=== PATIENT | female | born 1965 | race Caucasian/White ===

== ENCOUNTER 2022-12-20 07:30 | Outpatient (OUT) | payer OTHER, SELFPAY | END 2022-12-20 07:31 | disposition home or self-care (01) | DX: E11.9 Type 2 diabetes mellitus without complications (principal) | CPT/HCPCS: G0108 ==

== ENCOUNTER 2023-04-26 14:19 | Outpatient (OUT) | payer OTHER, SELFPAY ==
--- NOTE | 2023-04-26 14:22 | MM_ITS ---
Patient Name: JOSE MASON MR#: [id number] : 1965 Exam Date: 04/26/2023 Ordering Doctor: DR. Indiana Pacheco M.D. RADIOLOGY REPORT PROCEDURE: MM TOMOSYNTHESIS SCREENING BI COMPARISON: MG MAMM SCREEN 3D FABIAN CAD, 11/14/2020. MG MAMM SCREEN 3D FABIAN CAD, 03/17/2022. INDICATIONS: Screening Calculator Name NCI Breast Cancer Risk Assessment Tool 5 Year Breast Cancer Risk 1.50% Lifetime Breast Cancer Risk 8.50% Personal Breast Cancer No Personal Ovarian Cancer No Treatments hysterectomy, bilateral oopherectomy Family Cancers None LOCATION: [facility] BREAST COMPOSITION: Almost entirely fatty. FINDINGS: DIAGNOSTIC CATEGORY 2--BENIGN FINDING. NO CHANGE FROM COMPARISON. Scattered benign-appearing calcifications are present. RIGHT BREAST: No significant suspicious finding. LEFT BREAST: No significant suspicious finding. RECOMMENDATIONS: ROUTINE MAMMOGRAM AND CLINICAL EVALUATION IN 12 MONTHS. PLEASE NOTE: A NORMAL MAMMOGRAM DOES NOT EXCLUDE THE POSSIBILITY OF BREAST CANCER. A CLINICALLY SUSPICIOUS PALPABLE LUMP SHOULD BE BIOPSIED. Dictated by: Dani Zhang MD on 04/26/2023 at 15:37 Approved by: Dani Zhang MD on 04/26/2023 at 15:40
--- NOTE | 2023-04-26 14:39 | XR_ITS ---
[address] [address] Patient Name: JOSE MASON MRN: [id number] date: 1965 Sex: F Assigned Patient Location: [facility] Current Patient Location: [facility] Accession/Order Number: [id number] Exam Date: 04/26/2023 14:45 Report Date: 04/26/2023 15:43 At the request of: SHANA MIDDLETON Procedure: XR DEXA axial skeleton EXAMINATION: XR DEXA axial skeleton, 04/26/2023 2:45 PM EST HISTORY: Screening For Osteoporosis Z13.820 COMPARISON: None. TECHNIQUE: Dual-energy X-ray absorptiometry (DEXA) bone density study performed for the axial skeleton. HISTORY: Screening For Osteoporosis Z13.820 FINDINGS: Bone mineral density AP spine L2-L4 measures 1.197 g/sq cm. T score 0.0. WHO classification: Normal Bone mineral density total femurs measures 1.235 g/sq cm. T score 1.8. WHO classification: Normal XR/XR DEXA axial skeleton IMPRESSION: Normal bone mineral density. Low fracture risk Electronically authenticated by: GERRI HUDDLESTON Date: 04/26/2023 15:43
== END 2023-04-26 14:20 | disposition home or self-care (01) ==
LOC: MAMMO 14:19
DX: Z12.31 Encounter for screening mammogram for malignant neoplasm of breast (principal); Z13.820 Encounter for screening for osteoporosis
CPT/HCPCS: 77063; 77067; 77080

== ENCOUNTER 2024-11-14 07:02 | Outpatient (OUT) | payer OTHER, SELFPAY ==
--- OUTSIDE RECORDS SUMMARY | 2024-11-05 09:30 | XMS_ITS | Encounter Summary ---
Author Organization [facility] Address [address] [place] [address] Care Team Providers Care Electrodynamicist Name Role Phone Odilia Montano MD Unavailable [phone] Reason for Visit * Reason Comments Follow-up Established patient presents today for 3-4 week fuv of left ankle pain. PCP: Charmaine 08/02/24, A1C: 5.7, BS: 101, SS: [id number] Encounter Details Date Type Department Care Team (Late st Contact Info) Description 11/05/2024 9:30 AM EDT Office Visit [facility] [address] [place] [id number] Mitch Singh, DPM [address] [place], [place] [phone] Tibialis posterior tendonitis, left (Primary Dx); Arthritis of left subtalar joint; Pain and swelling of left ankle; Difficulty walking Social History Tobacco Use Types Packs/Day Years Used Date Smoking Tobacco: Never Smokeless Tobacco: Never Alcohol Use Standard Drinks/Week Comments Not Currently 0 (1 standard drink = 0.6 oz pur e alcohol) Comments Unknown Sex and Gender Information Value Date Recorded Sex Assigned at Not on file Legal Sex Female 7:09 PM EDT Gender Identity Female 10/01/2024 8:42 PM EDT Sexual Orientation Not on file documented as of this encounter Last Filed Vital Signs Vital Sign Reading Time Taken Comments Blood Pressure - - Pulse - - Temperature - - Respiratory Rate - - Oxygen Saturation - - Inhaled Oxygen Concentration - - Weight 113 kg (250 lb) 11/05/2024 9:38 AM EDT Height 154.9 cm (5' 1 ) 11/05/2024 9:38 AM EDT Body Mass Index 47.24 11/05/2024 9:38 AM EDT documented in this encounter Patient Instructions * Patient Instructions* Mitch Singh DPM - 11/05/2024 9:30 AM EDT As noted documented in this encounter Progress Notes * Mitch Singh DPM - 11/05/2024 9:30 AM EDT Images from the original note were not included. Subjective Patient ID: Ana Oviedo is a 58 y.o. female who presents for Follow-up (Established patient presents today for 3-4 week fuv of left ankle pain. PCP: Charmaine WHITE 08/02/24, A1C: 5.7, BS: 101, SS: 7XW). HPI Follow-up assessment: Left ankle pain. Patient reports almost 100% relief/improvement . Completed prednisone therapy without adverse effects. Reports favorable support with Powerstep orthoses. Tolerance to ADLs an physical activity continues to improve. Residual symptoms appear to be locatedprimarily about the posterior joint line. Denies locking or catching sensation. Denies sensation ofweakness or instability. Medications Current Outpatient Medications: lisinopril 5 MG tablet, Take by mouth Daily, Disp: , Rfl: predniSONE (Deltasone) 10 MG tablet, 1 tablet twice daily x 7 days; followed by 1 tablet daily as directed until complete, Disp: 21 tablet, Rfl: 0 Allergies Dust mite extract, Molds & smuts, Penicillins, and Sulfa antibiotics Past Surgical History Past Surgical History: Procedure Laterality Date MR ANGIOGRAM ABDOMEN W AND WO IV CONTRAST 04/08/2021 MR ANGIOGRAM ABDOMEN W AND WO IV CONTRAST 04/08/2021 MR ANGIOGRAM CHEST W AND WO IV CONTRAST 04/08/2021 MR ANGIOGRAM CHEST W AND WO IV CONTRAST 04/08/2021 TONSILLECTOMY TOTAL ABDOMINAL HYSTERECTOMY TUBAL LIGATION Family History Family History Problem Relation Name Age of Onset Aneurysm Mother Meme Samano Stroke Mother Meme Samano Cancer Maternal Grandfather Marty veram Objective General assessment: Alert and oriented. Pleasant disposition. Independently ambulatory, wearing ortho feet footwear with Powerstep orthoses. Vascular: DP 2/4 bilateral. PT 1/4 bilateral. CFT brisk all digits. Gradient temperature: Warm-slightly cool bilateral. Symmetrical swelling of the lower extremities and ankles. Neurologic: Tactile and light touch sensation intact. Negative Tinel's along the tarsal canal. Dermatologic: Skin turgor is good. Unremarkable for eczema or dermatitis. Orthopedic: Range of motion: Demonstrates functional ankle range of motion bilateral; mild gastrocnemius equinus. Demonstrates functional subtalar and midtarsal joint range of motion on the right. Demonstrates limited subtalar joint passive range of motion on the left, with occasional joint click, without guarding or obvious joint crepitus. There remains mild posterior joint line tenderness; as well as the sinus tarsi. The medial and lateral collateral structures are non-tender. The anteriorjoint line is non-tender. Unremarkable for joint effusion. Lesion pattern: No forefoot or digital discrete keratotic lesions are noted. Stance assessment: Symmetrical, mildly pronated foot type. Radiology: RADIOGRAPHS: 3 views left ankle: Weight-bearing: AP, mortise, lateral: 10/02/2024: Unremarkable foracute osseous or joint pathology. Unremarkable for fracture or stress fracture changes. Fairly extensive degenerative arthritic changes of the posterior subtalar joint facet; with what appears to be a prominent evans's fracture fragment posteriorly. Minimal arthritic changes of the tibial-talar joint. Assessment/Plan Tibialis posterior tendonitis left. Post-traumatic arthrosis subtalar joint left. 3. Evans's fracture/os trigonum syndrome left ankle Plan: Review of clinical findings, differential diagnosis, etiology and contributing/aggravating factors, response to date, treatment strategy, rationale and objectives. Encourage compliance with supportive footwear and Powerstep orthoses. Recommend use of OTC compression sleeve or gauntlet brace as needed. Recommend Tylenol as needed. Discourage NSAID therapy with history of renal problems. Procedure: This note was created with the assistance of a speech recognition program. While intending to generate a timely document that accurately reflects the content of the visit, no guarantee can be provided that every grammatical or spelling mistake has been or will be identified or corrected. Thank you for your understanding. Mitch Singh DPM documented in this encounter Plan of Treatment Not on file documented as of this encounter Visit Diagnoses Diagnosis Tibialis posterior tendonitis, left- Primary Arthritis of left subtalar joint Pain and swelling of left ankle Difficulty walking Difficulty in walking documented in this encounter Care Teams Electrodynamicist Relationship Specialty Start Date End Date Odilia Montano MD [address] [place] [address] Primary Care Provider Family Medicine 10/02/24 documented as of this encounter
--- OUTSIDE RECORDS SUMMARY | 2024-11-14 07:07 | XMS_ITS | Encounter Summary ---
Author Organization [facility] Address [address] [place] [id number] Care Team Providers Care Assistant Grocery Store Manager Name Role Phone Scott Zuleta PA-C Primary Care Provider Indiana Pacheco MD Unavailable [phone] Source Comments In the event this information is protected by the Federal Confidentiality of Alcohol and Drug AbusePatient Records regulations: The Federal rules restrict any use of the information to criminally investigate or prosecute any alcohol or drug abuse patient.[facility] Encounter Details Date Type Department Care Team (Late st Contact Info) Description 02/24/2022 Patient Msg Gynecology [address] [phone] Raisa Elizondo APRN.FOUNTAIN SERVER [address] [place] [address] Appointment Cancellation Request Social History Tobacco Use Types Packs/Day Years Used Date Smoking Tobacco: Never Smokeless Tobacco: Never Alcohol Use Standard Drinks/Week Comments No 0 (1 standard drink = 0.6 oz pur e alcohol) PHQ-2 Answer Date Recorded PHQ-2 score 0 09/01/2021 Area Deprivation Index Answer Date Kannan rded National Score (1-100), lower number is lower ri sk Not on file 02/04/2021 State Score (1-10), lower number is lower risk N ot on file 02/04/2021 Data from: https://www.neighborhoodatlas.medicine.[facility].edu/. Last address used for calculation Not on file 02/04/2021 Comments No Sex and Gender Information Value Date Recorded Sex Assigned at Female 12/20/2019 6:05 AM EDT Legal Sex Female 1:57 PM EST Gender Identity Female 12/20/2019 6:05 AM EDT Sexual Orientation Straight 12/20/2019 6: 05 AM EDT documented as of this encounter Plan of Treatment Upcoming Encounters Date Type Department Care Team (Late st Contact Info) Description 03/20/2025 2:15 PM EST Visit (SP) Office Gynecology [address] [place] [address] Raisa Elizondo APRN.FOUNTAIN SERVER [address] [place] [address] 1 YR FU documented as of this encounter Visit Diagnoses Not on filedocumented in this encounter Care Teams Assistant Grocery Store Manager Relationship Specialty Start Date End Date Scott Zuleta PA-C PCP - General Internal Medicine 12/21/19 Indiana Pacheco MD [address] [facility] [facility] [address] Referring Family Medicine 01/16/21 documented as of this encounter
--- OUTSIDE RECORDS SUMMARY | 2024-11-14 07:07 | XMS_ITS | Encounter Summary ---
Author Organization [facility] Address [address] [place] [address] Care Team Providers Care Director Epidemiology Name Role Phone Scott Zuleta PA-C Primary Care Provider Indiana Pacheco MD Unavailable [phone] Source Comments In the event this information is protected by the Federal Confidentiality of Alcohol and Drug AbusePatient Records regulations: The Federal rules restrict any use of the information to criminally investigate or prosecute any alcohol or drug abuse patient.[facility] Encounter Details Date Type Department Care Team (Late st Contact Info) Description 04/12/2021 Patient [facility] [address] [phone] Delores Anaya [facility] [address] [phone] [facility] research study Social History Tobacco Use Types Packs/Day Years Used Date Smoking Tobacco: Never Smokeless Tobacco: Never Alcohol Use Standard Drinks/Week Comments No 0 (1 standard drink = 0.6 oz pur e alcohol) PHQ-2 Answer Date Recorded PHQ-2 score 0 02/04/2021 Area Deprivation Index Answer Date Kannan rded National Score (1-100), lower number is lower ri sk Not on file 02/04/2021 State Score (1-10), lower number is lower risk N ot on file 02/04/2021 Data from: https://www.neighborhoodatlas.medicine.[facility].edu/. Last address used for calculation Not on file 02/04/2021 Comments No Sex and Gender Information Value Date Recorded Sex Assigned at Female 12/20/2019 6:05 AM EDT Legal Sex Female 1:57 PM EST Gender Identity Female 12/20/2019 6:05 AM EDT Sexual Orientation Straight 12/20/2019 6: 05 AM EDT COVID-19 Exposure Response Date Recorded In the last month, have you been in contact with someone who was confirmed or suspected to have Coronavirus / COVID-19? No / Unsure 04/08/2021 1:20 PM EST documented as of this encounter Plan of Treatment Upcoming Encounters Date Type Department Care Team (Late st Contact Info) Description 03/20/2025 2:15 PM EST Visit (SP) Office Gynecology [address] [place] [address] Rasia Elizondo, STAFF COUNSELOR.CORRESPONDENT [address] [place] [address] 1 YR FU documented as of this encounter Visit Diagnoses Not on filedocumented in this encounter Care Teams Director Epidemiology Relationship Specialty Start Date End Date Scott Zuleta PA-C PCP - General Internal Medicine 12/21/19 Indiana Pacheco MD [address] [place] [address] Referring Family Medicine 01/16/21 documented as of this encounter
--- OUTSIDE RECORDS SUMMARY | 2024-11-14 07:07 | XMS_ITS | Encounter Summary ---
Author Organization [facility] Address [address] [place] [address] Care Team Providers Care Trace Clerk Name Role Phone Odilia Montano MD Unavailable [phone] Encounter Details Date Type Department Care Team (Late st Contact Info) Description 11/05/2024 Bamboo flowsheet [facility] [address] [place] [phone] Mitch Singh DPM [address] [place] [address] Social History Tobacco Use Types Packs/Day Years [...] on file documented as of this encounter Plan of Treatment Not on file documented as of this encounter Visit Diagnoses Not on filedocumented in this encounter Care Teams Trace Clerk Relationship Specialty Start Date End Date Odilia Montano MD [address] [place], [place] [phone] Primary Care Provider Family Medicine 10/02/24 documented as of this encounter
--- OUTSIDE RECORDS SUMMARY | 2024-11-14 07:07 | XMS_ITS | Encounter Summary ---
Author Organization [facility] Address [address] [place] [address] Care Team Providers Care Home Health Specialist Name Role Phone Odilia Montano MD Unavailable [phone] Encounter Details Date Type Department Care Team (Latest Contact Info) Description 11/02/2024 Travel Social History Tobacco Use Types Packs/Day Years [...] on filedocumented in this encounter Care Teams Home Health Specialist Relationship Specialty Start Date End Date Odilia Montano MD [address] [place] [address] [place] [address] Primary Care Provider Family Medicine 10/02/24 documented as of this encounter
--- OUTSIDE RECORDS SUMMARY | 2024-11-14 07:07 | XMS_ITS | Encounter Summary ---
Author Organization [facility] Address [address] [place] [address] Care Team Providers Care Assistant Shift Supervisor Name Role Phone Odilia Montano APRN, NP Primary Care Prov ider Encounter Details Date Type Department Care Team (Late st Contact Info) Description 04/05/2024 Orders Only [facility] GENERAL SURGERY Part of [address] [place] [phone] Provider, Historical, Social History Tobacco Use Types Packs/Day Years Used Date Smoking Tobacco: Never Assessed Comments No Sex and Gender Information Value Date Recorded Sex Assigned at Not on file Legal Sex Female 2:17 PM EDT Gender Identity Not on file Sexual Orientation Not on file documented as of this encounter Plan of Treatment Not on file documented as of this encounter Procedures Procedure Name Priority Date/Time Associated Diagnosis Comments HM COLONOSCOPY Routine 09/03/2020 10:57 AM EDT COLONOSCOPY Routine 09/03/2016 11:23 AM EDT documented in this encounter Results * HM COLONOSCOPY (09/03/2020 10:57 AM EDT) us Historical Provider HEALTH MAINTENANCE Final Result * Colonoscopy (09/03/2016 11:23 AM EDT) Historical Provider GENERIC SURGICAL HISTORY Final Result documented in this encounter Visit Diagnoses Not on filedocumented in this encounter Care Teams Assistant Shift Supervisor Relationship Specialty Start Date End Date Odilia Montano APRN - NP [address] [place] [address] PCP - General 06/20/24 documented as of this encounter
--- OUTSIDE RECORDS SUMMARY | 2024-11-14 07:07 | XMS_ITS | Patient Health Record ---
Author Organization [facility] vices Address [address] [place] [address] [place] [id number] Care Team Providers Care Compound Machine Operator Name Role Phone Odilia Montano Primary Care Provider Indiana Pacheco Unavailable [phone] Jose E, Agnieszka Unavailable [phone] Allergies Allergen (clinical drug ingredient) Drug/Non Drug Allergy documented on EMR Reaction Allergy Type Onset Date Status penicillin G Penicillin G Potassium Rash Drug Allergy Active sulfadiazine sulfADIAZINE Hives Drug Allergy A ctive Dust Mites Unknown Allergy Active Pollen Pollen Unknown Allergy Active Substance with sulfonamide structure and antibacterial mechanism of action (substance) Sulfa Antibiotics Unknown Drug Allergy Inactive Results Component Value Reference Range Notes POCT A1C Reviewed date:07/12/2024 11:18:02 AM Interpretation: Performing Lab: Notes/Report: HTRX - Urinary Tract Infecti on Reviewed date:10/18/2024 09:17:39 AM Interpretation: Performing Lab: Notes/Report: Urine Dip Reviewed date:03/06/2024 03:54:49 PM Interpretation: Performing Lab: Notes/Report: Bilirubin - Occult Blood +- Glucose - Ketones - WBC 3+ Nitrite - Ph 6.0 Protein - Specific [place] 1.010 Color yellow Appearance cloudy Urine Dip Reviewed date:04/18/2024 03:00:19 PM Interpretation: Performing Lab: Notes/Report: Bilirubin - Occult Blood 1+ Glucose - Ketones - WBC 3+ Nitrite - Ph 6.0 Protein - Specific [place] 1.010 Color pale yellow Appearance cloudy CBC with Diff Reviewed date:07/10/2024 11:32:19 AM Interpretation: Performing Lab: Notes/Report: [facility] [address] [place] [address] Ward Assistant: Dani Armas MD WBC Count 7.7 3.5-11.3 k/uL RBC Count 5.12 3.95-5.11 m/uL Hemoglobin 14.1 11.9-15.1 g/dL Hematocrit 42.7 36.3-47.1 % MCV 83.4 82.6-102.9 fL MCH 27.5 25.2-33.5 pg MCHC 33.0 28.4-34.8 g/dL RDW 14.9 11.8-14.4 % Platelet Count 253 138-453 k/uL MPV 10.2 8.1-13.5 fL NRBC Automated 0.0 0.0 per 100 WBC Neutrophil (Seg) 63 36-65 % Lymphocyte 27 24-43 % Monocyte 5 3-12 % Eosinophil 3 1-4 % Basophil 1 0-2 % Immature Granulocyte 1 0 % Abs.Neutrophil (Seg) 4.95 1.50-8.10 k/uL Abs. Lymph 2.09 1.10-3.70 k/uL Abs. Monocyte 0.35 0.10-1.20 k/uL Abs. Eosinophil 0.20 0.00-0.44 k/uL Abs. Basophil 0.06 0.00-0.20 k/uL Abs.Imm.Granulocyte 0.05 0.00-0.30 k/uL Performing Lab: see note [facility] [address] [place] [id number] Basic Metabolic Prof Reviewed date:07/10/2024 11:32:36 AM Interpretation: Performing Lab: Notes/Report: [facility] [address] [place] [address] Ward Assistant: Dani Armas MD NA (Sodium) 137 136-145 mmol/L K (Potassium) 4.6 3.7-5.3 mmol/L Chloride 97 98-107 mmol/L CO2 29 20-31 mmol/L Anion Gap 11 9-16 mmol/L Glucose 182 74-99 mg/dL BUN (Urea N) 24 6-20 mg/dL Creatinine 1.1 0.50-0.90 mg/dL eGFR 60 >60 mL/min/1.73m2 These results are not intended for use in patients <18 years of age. eGFR results are calculated without a race factor using the 2020 CKD-EPI equation. Careful clinical correlation is recommended, particularly when comparing to results calculated using previous equations. The CKD-EPI equation is less accurate in patients with extremes of muscle mass, extra-renal metabolism of creatine, excessive creatine ingestion, or following therapy that affects renal tubular secretion. BUN/CRE Ratio 22 9-20 Calcium 9.9 8.6-10.4 mg/dL Performing Lab: see note [facility] [address] [place] [address] URINALYSIS - REFLEX CULTURE/ SENS Reviewed date:04/23/2024 08:51:43 AM Interpretation: Performing Lab: Notes/Report: UNLESS OTHERWISE INDICATED, ALL TESTING PERFORMED AT: [facility] [address] [place] [address] RECEPTIONIST SECRETARY: SANDRA ZAMORANO M.D. CLIA NUMBER [id number] CAP ACCREDITATION AUID [id number] Changes in testing location may be associated with reference range changes for a number of analytes. Please review reference intervals carefully. PH 6.5 5.0-8.0 SP GRAVITY 1.007 1.005-1.030 APPEARANCE CLOUDY CLEAR COLOR YELLOW YELLOW PROTEIN NEGATIVE NEGATIVE GLUCOSE NEGATIVE NEGATIVE KETONES NEGATIVE NEGATIVE BILIRUBIN NEGATIVE NEGATIVE OCCULT BLOOD TRACE NEGATIVE LEUKO FRANCK 3+ NEGATIVE NITRITE NEGATIVE NEGATIVE UROBILINOGEN <2 <2 mg/dL WBC 21-50 0-5 HPF RBC 0-2 0-2 HPF EPI CELL 6-10 NONE HPF BACTERIA 3+ NONE HYALINE CASTS TRACE NONE LPF URINE CULTURE Reviewed date:04/23/2024 08:51:22 AM Interpretation: Performing Lab: Notes/Report: URINE CULTURE CULTURE/SENS,URINE REPORT STATUS: FINAL SOURCE: URINE CULTURE: TEST NOT PERFORMED NO GB OR URINE CUP RECEIVED Urine Dip Reviewed date:10/18/2024 07:42:00 AM Interpretation: Performing Lab: Notes/Report: Bilirubin - Occult Blood +- Glucose - Ketones - WBC 3+ Nitrite - Ph 6.0 Protein - Specific [place] 1.010 Color yellow Appearance cloudy Reason For Referral No Information Medications Medication SIG (Take, Route, Frequency, Duration) Notes Start Date End Date Status RA Vitamin D-3 125 MCG (5000 UT) 1 capsule Oral Once a day for 90 days Active Aspirin 81 81 MG 1 tablet Orally Once a day Active Lancets - as directed for 90 days Active Lisinopril 5 MG 1 tablet Orally Once a day for 90 days Active [facility] Blood Glucose Meter w/Device as directed for 90 days Please give brand covered by insurance. 12/06/2022 Active Multivitamin Adults 50+ - as directed Orally Active Blood Glucose Test Strip - as directed In Vitro once daily for 90 days Brand covered by insurance. 12/06/2022 Active Rosuvastatin Calcium 20 MG take 1 tablet by mouth once daily for 90 days Active Nitrofurantoin Monohyd Macro 100 MG 1 capsule with food Orally every 12 hrs for 5 day(s) 10/17/2024 Active Immunizations Vaccine Route Administration Date Status Comme nts *Influenza-Flucelvax- Private IM Intramuscular 03/09/2022 Administered *Pneumococcal polysaccharide PFE58-Qdpsram IM Intramuscular 01/14/2021 Administered Status:Complet e ,Reason:Given or N/A *Tdap (Adacel)-VFC IM Intramuscular 04/18/2017 Administere d Status:Complet e ,Reason:Given or N/A *Tdap (Adacel)-VFC IM Intramuscular 01/14/2021 Administere d Status:Complet e ,Reason:Given or N/A Influenza (split), 3 yrs and above IM Intramuscular 01/26/2012 Administered Status:Prelimi nary ,Reason:Given or N/A Social History Tobacco Use: Social History Observation Description Date Details (start date - stop date) Never Smoker NA - NA Household Question Answer Notes Number of adults in household: 2 Number of children in household: 0 Tobacco Use/Smoking Question Answer Notes Tobacco use: nonsmoker patient enter ed data CAGE-AID Questionnaire (2018 Edition) Question Answer Notes Have you ever felt that you ought to cut down on your drinking or drug use? No patient entered data Have people annoyed you by c riticizing your drinking or drug use? No patient entered data Have you ever felt bad or gu ilty about your drinking or drug use? No patient entered data Have you ever had a drink or used drugs first thing in the morning to steady your nerves or to get rid of a hangover? No patient entered data CAGE-AID Score 0 Interpretation Negative PRAPARE Question Answer Notes Date Completed/Updated: 07/12/2024 louisa nt entered data What is your current housing situation? I have housing patient entered data Are you worried about losing your housing? No patient entered data What is the highest level of school that you have finished? 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 Check all that apply I do not have problems meeting my needs Has lack of transportation k ept you from medical appointments, meetings, work or from getting things needed for daily living? No How often do you see or talk to people that you care about and feel close to? (For example: talking to friends on the phone, visiting friends or family, going to mandaen or club meetings) More than 5 times a week patient entered data How stressed are you? Stress is when someone feels tense, nervous, anxious, or can't sleep at night because their mind is troubled Somewhat patient entered data In the past year have you sp ent more than 2 nights in a row in a intermediate, retirement, fpc center, or juvenile correctional facility? No patient entered christian a Are you a refugee? No patient en tered data What country are you from? [place] j[place] friednt entered data Do you feel physically and emotionally safe where you currently live? Yes patient entered data In the past year, have you b een afraid of your partner or ex-partner? No patient entered data PRAPARE Score: 1 Problems Problem Type SNOMED Code ICD Code Onset Dates Problem Status W/U Status Risk Notes Problem 058188396 Obesity, morbid, BMI 40.0-49.9 (E66.01) Active confirmed Problem Hypertension (91976660) Hypertension (I10) Active confirmed Problem 510798260 BMI 45.0-49.9, adult (Z68.42) Active confirmed Problem Type II diabetes mellitus without complication (146348416) Type 2 diabetes, diet controlled (E11.9) Active confirmed Problem 23180680 Hyperlipidemia, unspecified hyperlipidemia type (E78.5) Active confirmed Problem Chronic kidney disease stage 3 (disorder) (125351292) Stage 3 chronic kidney disease, unspecified whether stage 3a or 3b CKD (N18.30) Active confirmed Nephrology started lisinopril. Doing well with medication. Will continue to avoid NSAIDS. Adjusting gabapentin dose as above. Problem Sleep apnea (11446631) Apnea, sleep (G47.30) 007 Active confirmed Description: Sleep apnea Vital Signs Heart Rate 59 /min 10/17/2024 Marleni Hendrix 10/17/2024 11:02:21 AM EDT > Temperature 98.3 degrees Fahrenheit 10/17/2024 Marleni Chavez 10/17/2024 11:02:21 AM EDT > Respiratory Rate 18 /min 10/17/2024 Fredy Hendrix 10/17/2024 11:02:21 AM EDT > Oximetry 95 % 10/17/2024 Marleni Hendrix 10/17/2024 11:02:21 AM EDT > Blood pressure diastolic 83 mm Hg 10/17/2024 Marleni Daniel 10/17/2024 11:02:21 AM EDT > Height-cm 155.58 cm 10/17/2024 Marleni Hendrix 10/17/2024 11:02:21 AM EDT > Weight-kg 120.25 kg 10/17/2024 Marleni Hendrix 10/17/2024 11:02:21 AM EDT > Height 61.25 in 10/17/2024 Marleni Hendrix 10/17/2024 11:02:21 AM EDT > Blood pressure systolic 129 mm Hg 10/17/2024 Marleni Chavez 10/17/2024 11:02:21 AM EDT > Weight 265.1 lbs 10/17/2024 Marleni Hendrix 10/17/2024 11:02:21 AM EDT > BMI 49.68 kg/m2 10/17/2024 Marleni Hendrix 10/17/2024 11:02:21 AM EDT > Encounters Encounter Location Date Provider Diagnosis [address] [place] [id number] 03/06/2024 Odilia Montano Dysuria R30.0 Main [address] [place], [place] [id number] 03/29/2024 Odilia Charmaine Abscess L02.91 ; BMI 45.0-49.9, adult Z68.42 and Obesity, morbid, BMI 40.0-49.9 E66.01 Main [address] [place], [place] [id number] 04/18/2024 Agnieszka Jose E UTI (lower urinary t ract infection) N39.0 and Hypertension I10 Main [address] [place], [place] [id number] 07/12/2024 Odilia Montano Type 2 diabetes, t controlled E11.9 ; Hypertension I10 ; Hyperlipidemia, unspecified hyperlipidemia type E78.5 ; Stage 3 chronic kidney disease, unspecified whether stage 3a or 3b CKD N18.30 ; BMI 45.0-49.9, adult Z68.42 and Obesity, morbid, BMI 40.0-49.9 E66.01 Main [address] [place], [place] [id number] 10/17/2024 Agnieszka Jose E UTI (lower urinary t ract infection) N39.0 [address] [place], [place] [id number] 02/20/2024 Agnieszka Jose E [address] [place], [place] [id number] 03/07/2024 Odilia Montano Assessments Encounter Date Diagnosis (ICD Code) Assessment Notes Treatment Notes Treatment Clinical Notes Section Notes 10/17/2024 UTI (lower urinary tract infection) (ICD-10 - N39.0) Pts symptoms are consistent with a UTI I advised patient to drink plenty of fluids. Ibuprofen 800mg TID as needed for pain. Antibiotic (macrobid 100mg BID) x 5 days sent to pharmacy We will send urine culture to make sure we don't have a resistant organism. If symptoms worsen or if you develop fever, chills, flank pain or hypotension, call the office or visit the ER. 04/18/2024 UTI (lower urinary tract infection) (ICD-10 - N39.0) Pts symptoms and urine dip are consistent with a UTI I advised patient to drink plenty of fluids. Ibuprofen 800mg TID as needed for pain. Antibiotic (macrobid 100mg BID) x 5 days sent to pharmacy We will send urine culture to make sure we don't have a resistant organism. If symptoms worsen or if you develop fever, chills, flank pain or hypotension, call the office or visit the ER. 04/18/2024 Hypertension (ICD-10 - I10) 07/12/2024 Hypertension (ICD-10 - I10) HTN stable. Will continue current medications. Encouraged healthy diet and exercise. F/u 6 months & PRN 07/12/2024 Type 2 diabetes, diet controlled (ICD-10 - E11.9) DM stable without medications. Encouraged healthy diet and exercise. F/u 6 months & PRN 03/29/2024 Abscess (ICD-10 - L02.91) Due to symptoms will treat with antibiotics. Discussed reassuring vs non reassuring signs related to infection and when to RTC or go to the ER. F/u PRN 03/29/2024 BMI 45.0-49.9, adult (ICD-10 - Z68.42) Body Mass Index: Care Instructions material was published 03/06/2024 Dysuria (ICD-10 - R30.0) 03/29/2024 Obesity, morbid, BMI 40.0-49.9 (ICD-10 - E66.01) 07/12/2024 Hyperlipidemia, unspecified hyperlipidemia type (ICD-10 - E78.5) Pt is stable on current medications. Will continue current medications. F/u 6 months & PRN 07/12/2024 Stage 3 chronic kidney disease, unspecified whether stage 3a or 3b CKD (ICD-10 - N18.30) Pt to continue to f/u with Neprhology 07/12/2024 BMI 45.0-49.9, adult (ICD-10 - Z68.42) Body Mass Index: Care Instructions material was published 07/12/2024 Obesity, morbid, BMI 40.0-49.9 (ICD-10 - E66.01) Plan Of Treatment No Information Insurance Providers Payer Name Payer Address Payer Phone Subscriber Number Group Number Insured Name Patient Relationship to Insured Coverage Start Date Coverage End Date Medical [facility] [address] [place] [address] [id number] Ish Oviedo Spouse - patient is the spouse of the insured 1 4 [employer] [address] [place] [address] [place], [place] [phone] [id number] Ish Oviedo Spouse - patient is the spouse of the insured 5 Medical (General) History Medical History History ICD Code Sleep apnea Asthma Cancer,endometrial Chronic airway obstruction (496) Hyperlipidemia Personal history of colonic polyps Reflux, esophageal Surgical History Surgery Date(Month/Year) Colonoscopy 2007-04-26 Tubal ligation 2009-06-10 section 2009-06-10 Tonsillectomy and adenoidectomy EXTENSIVE HYSTERECTOMY 2018 Hospitalization History Reason Date(Month/Year) see surgical hx
--- OUTSIDE RECORDS SUMMARY | 2024-11-14 07:07 | XMS_ITS | Encounter Summary ---
Author Organization [facility] [facility] tem Address [id number] [address] [place] [address] Care Team Providers Care Ship'S Captain Name Role Phone Services, [facility] Primary Care Provider Encounter Details Date Type Department Care Team (Late Contact Info) Description 08/09/2023 Telephone [facility] [address] [facility] [address] [place] [phone] Gabbi Kelly CMA Social History Tobacco Use Types Packs/Day Years Used Date Smoking Tobacco: Never Assessed Childcare Answer Date Recorded Childcare Unknown 10/23/2018 Employment Answer Date Recorded Employment Unknown 10/23/2018 Purpose - Life Answer Date Recorded Purpose and direction in life Unknown Comments No Sex and Gender Information Value Date Recorded Sex Assigned at Not on file Legal Sex Female 4:36 PM EDT Gender Identity Not on file Sexual Orientation Not on file documented as of this encounter Miscellaneous Notes * Telephone Encounter - Gabbi Kelly CMA - 08/09/2023 10:36 AM EDT Patient confirm appt with froilan 08/18/23 at 2:30pm Patient answered no to all question She will get labs [facility] tmr(08/10/23) Reminder given documented in this encounter Plan of Treatment Upcoming Encounters Date Type Department Care Team (Late Contact Info) Description 01/31/2025 4:00 PM EDT Office Visit [facility] [address] [place] [phone] Luca Lambert MD [address] [place], [place] [phone] documented as of this encounter Visit Diagnoses Not on filedocumented in this encounter Care Teams Ship'S Captain Relationship Specialty Start Date End Date [facility], [facility] [address] [place], [place] PCP - General Family Medicine 04/05/18 documented as of this encounter
--- OUTSIDE RECORDS SUMMARY | 2024-11-14 07:07 | XMS_ITS | Encounter Summary ---
Author Organization [employer] tem Address [id number] [address] [place] [address] Care Team Providers Care Survey Research Manager Name Role Phone Services, [facility] Primary Care Provider Encounter Details Date Type Department Care Team (Latest Contact Info) Description 10/31/2024 Travel Social History Tobacco Use Types Packs/Day [...] Care Team (Late st Contact Info) Description 01/31/2025 4:00 PM EDT Office Visit [facility] [address] [place] [phone] Luca Lambert MD [address] [place] [address] documented as of this encounter Visit Diagnoses Not on filedocumented in this encounter Care Teams Survey Research Manager Relationship Specialty Start Date End Date Services, [facility] [address] [place], [place] PCP - General Family Medicine 04/05/18 documented as of this encounter
--- OUTSIDE RECORDS SUMMARY | 2024-11-14 07:07 | XMS_ITS | Encounter Summary ---
Author Organization [facility] Address [address] [place] [address] Care Team Providers Care Delineator Name Role Phone Scott Zuleta PA-C Primary Care Provider [place] Pacheco MD Unavailable [phone] Source Comments In the event this information is protected by the Federal Confidentiality of Alcohol and Drug AbusePatient Records regulations: The Federal rules restrict any use of the information to criminally investigate or prosecute any alcohol or drug abuse patient.[facility] Encounter Details Date Type Department Care Team (Late st Contact Info) Description 04/17/2021 Get Medical Advice Cardiology [address] [phone] Jordan Salas MD [address] [place] [address] MRI results Social History Tobacco Use Types Packs/Day Years [...] N ot on file 02/04/2021 Data from: https://www.neighborhoodatlas.medicine.[facility].edu/. Last address used for calculation Not [...] 2:15 PM EST Visit (SP) Office Gynecology [address] [place] [address] Raisa Elizondo, CENTRAL MELT SPECIALIST.ASSOCIATE PROFESSOR OF AUTOMATION [address] [place] [address] 1 YR FU documented as of this encounter Visit Diagnoses Not on filedocumented in this encounter Care Teams Delineator Relationship Specialty Start Date End Date Scott Zuleta PA-C PCP - General Internal Medicine 12/21/19 Indiana Pacheco MD [address] [place] [address] Referring Family Medicine 01/16/21 documented as of this encounter
--- OUTSIDE RECORDS SUMMARY | 2024-11-14 07:07 | XMS_ITS | Encounter Summary ---
Author Organization [employer] tem Address [id number] [address] [place] [address] Care Team Providers Care Packing Room Inspector Name Role Phone Services, [facility] Primary Care Provider Reason for Visit * Reason Comments Med Refill Encounter Details Date Type Department Care Team (Late Contact Info) Description 11/03/2024 Refill [facility] [address] [place] [phone] Luca Lambert MD [address] [place], [place] [phone] Primary hypertension Social History Tobacco Use Types Packs/Day Years [...] EDT Office Visit [facility] [address] [place] [phone] Luca Lambert MD [address] [place] [address] documented as of this encounter Visit Diagnoses Diagnosis Primary hypertension Unspecified essential hypertension documented in this encounter Care Teams Packing Room Inspector Relationship Specialty Start Date End Date [facility], [facility] [address] [place], [place] PCP - General Family Medicine 04/05/18 documented as of this encounter
--- OUTSIDE RECORDS SUMMARY | 2024-11-14 07:07 | XMS_ITS | Clinical Summary ---
Author Organization [employer] [facility] Address [id number] [place] [address] Care Team Providers Care Maternity Floor Supervisor Name Role Phone Services, [facility] Primary Care Provider Allergies Active Allergy Reactions Criticality Noted Date Comments Penicillins Rash Low 03/30/2017 Sulfanilamide Rash Low 03/30/2017 Medications aspirin 81 mg Take 1 tablet (81 mg total) by mouth in the morning. Active cholecalciferol (VITAMIN D3) 5,000 units capsule Take 1 capsule (5,000 Units total) by mouth in the morning. 90 capsule 3 10/06/19 22 Active Additional Information Patient not taking.Reported on 08/18/2023 gabapentin (NEURONTIN) 300 mg capsule Take 1 capsule (300 mg total) by mouth 3 (three) times a day. Patient do as needed Active rosuvastatin (CRESTOR) 20 mg tablet Take 1 tablet (20 mg total) by mouth in the morning. 08/05/19 24 Active lisinopriL (PRINIVIL,ZESTR IL) 5 mg tabletIndicatio ns:Primary hypertension TAKE 1 TABLET BY MOUTH IN THE MORNING. PT NEEDS AN APPT FOR FURTHER REFILLS. 90 tablet 11/06/19 25 Active lisinopriL (PRINIVIL,ZESTR IL) 5 mg tabletIndicatio ns:Primary hypertension TAKE 1 TABLET (5 MG TOTAL) BY MOUTH IN THE MORNING. PT NEEDS AN APPT FOR FURTHER REFILLS. 90 tablet 08/07/19 25 025 Discontinued Encounters Date Type Department Care Team Description 11/05/2024 Telephone N [facility] [address] [place] [address] Luca Lambert MD UA prior to appt 11/03/2024 Refill PH[facility] [address] [place] [address] Luca Lambert MD Primary hypertension 10/31/2024 Telephone N [facility] [address] [place] [address] Nargis Mcgee, [facility] 10/31/2024 Travel 09/12/2024 Telephone [facility] [address] [place] [address] Taya Brian, [facility] 09/11/2024 Travel 09/04/2024 Orders Only [facility] [address] [place] [address] Jahaira Brian CMA CKD (chronic kidney disease) stage 2, GFR 60-89 ml/min (Primary Dx); Stage 3b chronic kidney disease ([facility]) from Last 3 Months Social History Tobacco Use Types Packs/Day Years [...] on file Sexual Orientation Not on file Last Filed Vital Signs Vital Sign Reading Time Taken Comments Blood Pressure 131/75 08/18/2023 2:15 PM EDT Pulse 83 08/18/2023 2:15 PM EDT Temperature - - Respiratory Rate - - Oxygen Saturation 95% 08/18/2023 2:13 PM EDT Inhaled Oxygen Concentration - - Weight 115.7 kg (255 lb) 08/18/2023 2:15 PM EDT Height 154.9 cm (5' 1 ) 07/29/2022 3:04 PM EDT Body Mass Index 48.18 07/29/2022 3:04 PM EDT Plan of Treatment Upcoming Encounters Date Type Department Care Team (Late st Contact Info) Description 01/31/2025 4:00 PM EDT Office Visit [facility] [address] [place] [id number] Luca Lambert MD [address] [place] [address] Health Maintenance Due Date Last Done Comments Depression Screening 1976 Tobacco Screening 1976 Zoster (Shingles) Vaccine (1 of 2) 2014 COVID-19 Vaccine (3 - 2023-2 5 season) 2024 03/13/2021, 02/13/2021 Adult BMI Screening 08/17/2024 08/18/2023 Influenza Vaccine 01/14/2025 03/09/2022, , 03/07/2018, Additional history exists DTaP,Tdap and Td Vaccines (3 - Td or Tdap) 01/14/2031 01/14/2021, 04/18/2017 Pap Smear Discontinued 03/14/2024, 02/14, 09/02/2021 Medical Devices Not on file Insurance [employer] Care Teams Maternity Floor Supervisor Relationship Specialty Start Date End Date Services, [facility] [address] [place], [place] PCP - General Family Medicine 04/05/18
--- OUTSIDE RECORDS SUMMARY | 2024-11-14 07:07 | XMS_ITS | Clinical Summary ---
Author Organization [facility] Address [address] [place], [place] [id number] Care Team Providers Care Tool And Machine Maintainer Name Role Phone Scott Zuleta PA-C Primary Care Provider [place] Pacheco MD Unavailable [phone] Allergies Active Allergy Reactions Criticality Noted Date Comments Penicillins Rash 03/30/2017 Sulfanilamide Rash 03/30/2017 Medications aspirin, enteric coated (ASPIRIN, ENTERIC COATED) 81 mg EC tablet Take 81 mg by mouth once daily. Active lisinopril (ZESTRIL, PRINIVIL) 5 mg tablet Take 5 mg by mouth once daily. 06/20/2021 Active Active Problems Problem Noted Date Diagnosed Date Endometrial cancer Resolved Problems Problem Noted Date Diagnosed Date Resolved Date Uterine cancer 04/08/2017 09/05/2020 Overview (04/08/2017): Added automatically from request for surgery [id number] Immunizations Immunization Administration Dates Next Due influenza vaccine, unspecified formulation 03/07 Family History Medical History Relation Comments Colon Cancer Maternal Grandfather Colon Cancer Maternal Uncle Aneurysm Mother aortic d. 46 Relation Status Comments Father Maternal Grandfather Maternal Uncle Mother Social History Tobacco Use Types Packs/Day Years Used Date Smoking Tobacco: Never Smokeless Tobacco: Never Tobacco Cessation:Counseling Given: Not Answered Alcohol Use Standard Drinks/Week Comments No 0 (1 standard drink = 0.6 oz pur e alcohol) PHQ-2 Answer Date Recorded PHQ-2 score 0 03/07/2023 Area Deprivation Index Answer Date Kannan rded National Score (1-100), lower number is lower ri sk 49 03/09/2023 State Score (1-10), lower number is lower risk 3 03/09/2023 Data from: https://www.neighborhoodatlas.medicine.[facility].edu/. Last address used for calculation [address] 03/09/2023 Comments No Sex and Gender Information Value Date Recorded Sex Assigned at Female 12/20/2019 6:05 AM EDT Legal Sex Female 1:57 PM EST Gender Identity Female 12/20/2019 6:05 AM EDT Sexual Orientation Straight 12/20/2019 6: 05 AM EDT Last Filed Vital Signs Vital Sign Reading Time Taken Comments Blood Pressure 131/84 03/14/2024 9:24 AM EDT Pulse 55 03/14/2024 9:24 AM EDT Temperature 36.9 C (98.5 F) 03/09/2023 9:14 AM EDT Respiratory Rate 18 03/14/2024 9:24 AM EDT Oxygen Saturation 97% 03/14/2024 9:24 AM EDT Inhaled Oxygen Concentration - - Weight 115.5 kg (254 lb 10.1 oz) 03/14/2024 9:24 AM EDT Height 154.9 cm (5' 1 ) 04/08/2021 1:31 PM EST Body Mass Index 48.11 04/08/2021 1:31 PM EST Plan of Treatment Upcoming Encounters Date Type Department Care Team (Late st Contact Info) Description 03/20/2025 2:15 PM EST Visit (SP) Office Gynecology [address] [place] [address] Raisa Elizondo, DRUM STOCK CLERK.PHARMACEUTICAL SALESPERSON [address] [id number] 1 YR FU Health Maintenance Due Date Last Done Comments Anxiety Screening 1982 Depression Screening [address] Colonography 2009 Cologuard (FIT-DNA) 2009 Colonoscopy 2009 Colorectal Cancer Screening 2009 Fecal Occult Blood 2009 Lipid Screening 2009 Sigmoidoscopy 2009 Shingrix Vaccine (1 of 2) 2014 Mammogram Screening 04/05/2019 04/05/2018 Pneumococcal Vaccine: 50+ (2 of 2 - PCV) 01/14/2022 01/14/2021 Covid-19 Vaccine (3 - 2023-2 5 season) 2024 03/13/2021, 02/13/2021 Diabetes Screening 10/01/2024 10/01/2021, 0 02/09/2021, 04/29/2017 Influenza Vaccine (Season Ended) 2025 03/09/2022, 02/21/2019, 03/07/2018, Additional history exists Cervical Cancer Screening 03/14/20272023, 03/09/2023, 03/10/2022, Additional history exists DTaP,Tdap,Td Vaccine (3 - Td or Tdap) 01/14/2031 01/14/2021, 04/18/2017 Hepatitis C Screening Completed 02/09/2021 Procedures Procedure Name Priority Date/Time Associated Diagnosis Comments PAP TEST Routine 03/14/2024 9:51 AM EDT History of uterine cancer BASIC METABOLIC PANEL (EU,FV,HL,RAHUL,MM,SP) JOÃO 04/29/2017 6:22 AM EST from Last 3 Months or Most Recently Relevant to Health Maintenance Results * PAP TEST (03/14/2024 9:51 AM EDT) Case Report Gynecologic Cytology Report Case: [id number] Authorizing Provider: Raisa Elizondo, Collected: 03/14/2024 09:51 AM CRISSY Ordering Location: Gynecology Received: 03/14/2024 04:38 PM First Screen: Lc [place], CT, ASCP Specimen: Pap Test, ThinPrep, Vagina 03/20/2024 11:22 AM EST [facility] Specimen Adequacy Satisfactory for interpretation. 03/20/2024 11:22 AM EST [facility] Interpretation Negative for intraepithelial lesion or malignancy. 03/20/2024 11:22 AM EST [facility] at 1122 EST Clinical History History of Malignancy (Describe) Hysterectomy, Total 03/20/2024 11:22 AM EST [facility] Pap Disclaimer The Pap Smear is a screening test for cervical cancer. False negative results occur with all screening tests, emphasizing the need for rescreening at recommended intervals, and clinical correlation. 03/20/2024 11:22 AM [facility] PAP Thimble Press Operator Comment This specimen has been analyzed by the ThinPrep Imaging System, an automated imaging and review system, which assists the laboratory in evaluating cells on ThinPrep Pap tests. Following automated imaging, selected delgado from every slide are reviewed by a double needle operator. 03/20/2024 11:22 AM [facility] Performing Lab Technical component, double needle operator screening performed at [facility], [address] [place] [address] CLIA# [id number] Diagnostic interpretation performed at [facility], [address] [place] [address] CLIA# [id number] Freelance Graphic Designer: Rufus Langley M.D. 03/20/2024 11:22 AM [facility] Sterile Fluid/Body Fluid VAGINAL STRUCTURE / Unknown Non Blood / Unknown 03/14/2024 9:51 AM EDT 03/14/2024 4:38 PM EDT us Raisa Elizondo DRUM STOCK CLERK.PHARMACEUTICAL SALESPERSON CYTOLOGY Fi nal Result [facility] [address] [place], [place] [address] [address] [place] [address], * (ABNORMAL) BASIC METABOLIC PANEL (AK,AV,EU,FV,HL,RAHUL,MM,SP) (04/29/2017 6:22 AM EST) Glucose 120(H) 65 - 100 mg/dL 04/29/2017 7:24 AM [facility] BUN 13 8 - 25 mg/dL 04/29/2017 7:24 AM [facility] Creatinine 1.04 0.70 - 1.40 mg/dL 04/29/2017 7:24 AM [facility] Sodium 141 132 - 148 mmol/L 04/29/2017 7:24 AM EST [facility] Potassium 4.6 3.5 - 5.0 mmol/L 04/29/2017 7:24 AM EST [facility] Chloride 103 98 - 110 mmol/L 04/29/2017 7:24 AM EST [facility] CO2 26 23 - 32 mmol/L 04/29/2017 7:24 AM EST [facility] Anion Gap 12 9 - 18 mmol/L 04/29/2017 7:24 AM EST [facility] Calcium 9.1 8.5 - 10.5 mg/dL 04/29/2017 7:24 AM EST [facility] eGFR- >60 >60 04/29/2017 7:24 AM EST [facility] eGFR-All Other Races 56(L) >60 . 04/29/2017 7:24 AM EST [facility] Blood specimen (specimen) BLOOD SPECIMEN / Unknown 04/29/2017 6:22 AM EST 04/29/2017 6:23 AM EST Dami Agarwal MD [facility] Final Resu lt [facility] [id number] [place] [phone] from Last 3 Months or Most Recently Relevant to Health Maintenance Insurance O [employer] PPO Care Teams Tool And Machine Maintainer Relationship Specialty Start Date End Date Scott Zuleta PA-C PCP - General Internal Medicine 12/21/19 [place] Pacheco MD [address] [place] [address] Referring Family Medicine 01/16/21
--- OUTSIDE RECORDS SUMMARY | 2024-11-14 07:07 | XMS_ITS | Encounter Summary ---
Author Organization [facility] Address [address] [place] [address] Care Team Providers Care Business Objects Report Developer Name Role Phone Odilia Montano MD Unavailable [phone] Encounter Details Date Type Department Care Team (Latest Contact Info) Description 11/05/2024 Travel Social History Tobacco Use Types Packs/Day [...] on filedocumented in this encounter Care Teams Business Objects Report Developer Relationship Specialty Start Date End Date Odilia Montano MD [address] [place] [address] [place] [address] Primary Care Provider Family Medicine 10/02/24 documented as of this encounter
--- OUTSIDE RECORDS SUMMARY | 2024-11-14 07:07 | XMS_ITS | Clinical Summary ---
Author Organization [facility] Address [address] [place] [address] Care Team Providers Care Tar Chaser Name Role Phone Odilia Montano MD Unavailable [phone] Allergies Active Allergy Reactions Criticality Noted Date Comments Dust Mite Extract 10/02/2024 Molds & Smuts 10/02/2024 Penicillins Rash Low 10/02/2024 Sulfa Antibiotics Rash Low 10/02/2024 Medications lisinopril 5 MG tablet Take by mouth Daily Active predniSONE (Deltasone) 10 MG tabletIndicatio ns:Tibialis posterior tendonitis, left,Arthritis of left subtalar joint,Pain and swelling of left ankle,Difficult y walking 1 tablet twice daily x 7 days; followed by 1 tablet daily as directed until complete 21 tablet 10/02/2024 Active Active Problems No known active problems Encounters Date Type Department Care Team Description 11/05/2024 9:30 AM EDT Office Visit [facility] [address] [place] [address] Mitch Singh, LANA Tibialis posterior tendonitis, left (Primary Dx); Arthritis of left subtalar joint; Pain and swelling of left ankle; Difficulty walking 11/05/2024 Bamboo flowsheet [facility] [address] [place] [address] Mitch Singh DPM 11/05/2024 Travel 11/02/2024 Travel 10/02/2024 9:40 AM EDT Ancillary Procedure [facility] [address] [place] [address] 10/02/2024 8:45 AM EDT Office Visit [facility] [address] [place] [address] Mitch Singh, DPM Tibialis posterior tendonitis, left (Primary Dx); Arthritis of left subtalar joint; Pain and swelling of left ankle; Difficulty walking 10/02/2024 Bamboo flowsheet [facility] [address] [place] [address] Mitch Singh DPM 10/02/2024 Travel 10/01/2024 Travel from Last 3 Months Immunizations Immunization Administration Dates Next Due Influenza, Unspecified 03/07/2018 Influenza, injectable, MDCK, preservative free, quadrivalent 03/09/2022,02/21/2019,02/23/2018 Influenza, seasonal, injectable 01/26/2012 Moderna SARS-CoV-2 Vaccination 03/13/2021,2020 Pneumococcal Polysaccharide PPSV23 01/14/2021 Tdap 01/14/2021,04/18/2017 Family History Medical History Relation Name Comments Cancer Maternal Grandfather Marty Carrillo colon Aneurysm Mother Meme Samano Stroke Mother Meme Samano Relation Name Status Comments Maternal Grandfather Marty Carrillo Mother Meme Samano Social History Tobacco Use Types Packs/Day Years [...] PM EDT Sexual Orientation Not on file Last Filed [...] Mass Index 47.24 11/05/2024 9:38 AM EDT Plan of Treatment Health Maintenance Due Date Last Done Comments CT Colonography 1964 FIT-DNA 1964 FIT 1964 FOBT 1964 Sigmoidoscopy 1964 Mammogram 04/05/2019 04/05/2018 Influenza Vaccine (Season Ended) 2025 03/09/2022, 02/21/2019, 03/07/2018, Additional history exists HPV/Cotest 09/05/2025 09/05/2020 Cervical Cancer Screening 03/14/2027 Pap Smear 03/14/2027 03/14/2024, 02/15, 03/09/2023, Additional history exists Colonoscopy 08/31/2034 08/31/2024, 08/31/2024 Colorectal Cancer Screening 08/31/2034 Procedures Procedure Name Priority Date/Time Associated Diagnosis Comments XR ANKLE 3+ VIEWS LEFT Routine 10/02/2024 9:35 AM EDT Tibialis posterior tendonitis, left Arthritis of left subtalar joint Pain and swelling of left ankle Difficulty walking from Last 3 Months Results * XR ankle 3+ views left (10/02/2024 9:35 AM EDT) Anatomical Region Laterality Modality Lower Extremities, Ankle Left Radiogr aphic Imaging Narrative 10/02/2024 9:37 AM EDT Imaging Result: 3 views left ankle: Weight-bearing: AP, mortise, lateral: 10/02/2024: Unremarkable for acute osseous or joint pathology. Unremarkable for fracture or stress fracture changes. Fairly extensive degenerative arthritic changes of the posterior subtalar joint facet; with what appears to be a prominent lozoya's fracture fragment posteriorly. Minimal arthritic changes of the tibial-talar joint. Mitch Singh DPM IMG XR PROCEDURES Final Resu lt from Last 3 Months Insurance [employer] Care Teams Tar Chaser Relationship Specialty Start Date End Date Odilia Montano MD [address] [place] [address] Primary Care Provider Family Medicine 10/02/24
--- OUTSIDE RECORDS SUMMARY | 2024-11-14 07:07 | XMS_ITS | Encounter Summary ---
Author Organization [facility] Address [address] [place] [address] Care Team Providers Care Supervisor Cemetery Workers Name Role Phone Scott Zuleta PA-C Primary Care Provider [place] Pacheco MD Unavailable [phone] Source Comments In the event this information is protected by the Federal Confidentiality of Alcohol and Drug AbusePatient Records regulations: The Federal rules restrict any use of the information to criminally investigate or prosecute any alcohol or drug abuse patient.[facility] Encounter Details Date Type Department Care Team (Late st Contact Info) Description 04/08/2021 Patient [facility] [address] [id number] Delores Anaya [facility] [address] [id number] [facility] research study Social History Tobacco Use Types [...] N ot on file 02/04/2021 Data from: https://www.neighborhoodatlas.medicine.[facility].edu/. Last address used for calculation Not on [...] 2:15 PM EST Visit (SP) Office Gynecology [address] [place] [address] Raisa Elizondo, HEALTH AND PHYSICAL EDUCATION PROFESSOR.ELEMENTARY EDUCATION TEACHER [address] [place] [address] 1 YR FU documented as of this encounter Visit Diagnoses Not on filedocumented in this encounter Care Teams Supervisor Cemetery Workers Relationship Specialty Start Date End Date Scott Zuleta PA-C PCP - General Internal Medicine 12/21/19 Indiana Pacheco MD [address] [place] [address] Referring Family Medicine 01/16/21 documented as of this encounter
--- OUTSIDE RECORDS SUMMARY | 2024-11-14 07:07 | XMS_ITS | Clinical Summary ---
Author Organization [facility] Address [address] [place] [address] Care Team Providers Care Appointment Setter Name Role Phone Odilia Amezquita APRN, NP Primary Care Prov ider Allergies Active Allergy Reactions Criticality Noted Date Comments Penicillins Rash Low 03/30/2017 Sulfadiazine Hives 04/05/2024 Sulfanilamide Rash Low 03/30/2017 Medications aspirin 81 MG chewable tablet Take 1 tablet by mouth Every Day Active lisinopril (PRINIVIL;ZESTR IL) 5 MG tablet Take 1 tablet by mouth every evening 09/30/2023 Active rosuvastatin (CRESTOR) 20 MG tablet take 1 tablet by mouth once daily for 90 days 08/05/2023 Active Active Problems Problem Noted Date Diagnosed Date Family history of colon cancer 08/31/2024 Rectal bleeding 08/30/2024 Endometrial cancer 04/05/2024 BMI 45.0-49.9, adult 04/05/2024 Obesity, morbid, BMI 40.0-49.9 04/05/2024 Resolved Problems Problem Noted Date Diagnosed Date Resolved Date Screen for colon cancer 04/05/202404/16 Screen for colon cancer 04/05/202409/13 Encounters Date Type Department Care Team Description 08/31/2024 8:36 AM EDT Anesthesia Event [facility] OR [address] [phone] Nicholas Grimes APRN - CRNA Baiera, JosephFABBY PHOTO LAB SPECIALIST 08/31/2024 8:00 AM EDT - 08/31/2024 8:50 AM EDT Surgery [facility] OR [address] [place] [id number] Sabi Cardneas MD COLORECTAL CANCER SCREENING, NOT HIGH RISK 08/31/2024 6:57 AM EDT - 08/31/2024 9:41 AM EDT Hospital Encounter [facility] OR [address] [place] [phone] Sabi Cardenas MD Discharge Disposition: Home or Self Care 08/31/2024 Travel 08/27/2024 Telephone [facility] PRE ADMIT [address] [place] [address] [phone] Ana Maria Mcdonald APRN - MADYSON Cardiac Clearance from Last 3 Months Family History Medical History Relation Name Comments Colon Cancer Maternal Cousin Colon Cancer Maternal Grandfather Colon Cancer Maternal Uncle 1 of 7 siblin gs. Thoracic aneurism [Other] Mother Relation Name Status Comments Maternal Cousin Alive Maternal Grandfather Maternal Uncle Alive Mother Sister 1 Alive Sister 2 Alive Social History Tobacco Use Types Packs/Day Years Used Date Smoking Tobacco: Never Smokeless Tobacco: Never Tobacco Cessation:Counseling Given: Not Answered Alcohol Use Standard Drinks/Week Comments Not Currently 0 (1 standard drink = 0.6 oz pur e alcohol) Interpersonal Safety Domain Source: IP Abuse Scr eening Answer Date Recorded Physical abuse Denies 08/31/2024 Verbal abuse Denies 08/31/2024 Emotional abuse Denies 08/31/2024 Financial abuse Denies 08/31/2024 Sexual abuse Denies 08/31/2024 Comments No Sex and Gender Information Value Date Recorded Sex Assigned at Not on file Legal Sex Female 2:17 PM EDT Gender Identity Not on file Sexual Orientation Not on file Last Filed Vital Signs Vital Sign Reading Time Taken Comments Blood Pressure 118/55 08/31/2024 9:35 AM EDT Pulse 48 08/31/2024 9:35 AM EDT Temperature 36.6 C (97.9 F) 08/31/2024 9:05 AM EDT Respiratory Rate 12 08/31/2024 9:35 AM EDT Oxygen Saturation 95% 08/31/2024 9:35 AM EDT Inhaled Oxygen Concentration - - Weight 114.3 kg (252 lb) 08/31/2024 7:21 AM EDT Height 154.9 cm (5' 1 ) 08/31/2024 7:21 AM EDT Body Mass Index 47.61 08/31/2024 7:21 AM EDT Plan of Treatment Health Maintenance Due Date Last Done Comments Lipids 1974 Depression Screen 1976 HIV screen 12/10/1979 Hepatitis C screen 1982 Hepatitis B vaccine (1 of 3 - 19+ 3-dose series) 12/10/1983 Diabetes screen 12/10/1999 FIT/FOBT: Average risk 2009 Fecal-DNA (Cologuard): Average risk 2009 Sigmoidoscopy/CT colonography 2009 Shingles vaccine (1 of 2) 2014 Breast cancer screen 04/05/2020 04/05/2018 Pneumococcal 50+ years Vaccine (2 of 2 - PCV) 01/14/2022 01/14/2021 COVID-19 Vaccine (1 - season) 2024 Flu vaccine (Season Ended) 12/14/202403/09, 02/21/2019, 03/07/2018, Additional history exists DTaP/Tdap/Td vaccine (3 - Td or Tdap) 01/14/2031 01/14/2021, 04/18/2017 Colonoscopy 08/31/2034 08/31/2024, 08/14, 09/03/2020, Additional history exists Colorectal Cancer Screen 08/31/2034 Pneumococcal 0-49 years Vaccine Discontinued 01/14/2021 Hepatitis A vaccine Aged Out No longe r eligible based on patient's age to complete this topic Hib vaccine Aged Out No longer eligi ble based on patient's age to complete this topic Meningococcal (ACWY) vaccine Aged Out No longer eligible based on patient's age to complete this topic Meningococcal B vaccine Aged Out No l onger eligible based on patient's age to complete this topic Polio vaccine Aged Out No longer elig ible based on patient's age to complete this topic Procedures Procedure Name Priority Date/Time Associated Diagnosis Comments AL COLON CA SCRN NOT HI RSK IND 08/31/2024 8:37 AM EDT Screen for colon cancer Special Needs Medical and Cardiac clearances - Received COLONOSCOPY PROCEDURE Routine 08/31/2024 7:35 AM EDT from Last 3 Months Results * Colonoscopy (08/31/2024 7:35 AM EDT) 08/31/2024 7:35 AM EDT Narrative [facility] - 08/31/2024 7:35 AM EDT [facility] Patient: JOSE OVIEDO : 1965 Account: [id number] Sex at : Female Age: 58 Years Procedure: Colonoscopy Date: 08/31/2024 Attending Physician: SABI CARDENAS Referring MD: ODILIA AMEZQUITA Additional Staff: Paolo Cantrell RN Inner Tube Cutter; ANJALI MCDONALD, Hoop Coiler; TWILA MANDUJANO RN; Nicholas Grimes CRNA Indications: - Family history in extended maternal family suspicious for genetic colon cancer, and mother dying at early age. Medications: - See the Anesthesia note for documentation of the administered medications Complications: - No immediate complications. Estimated Blood Loss: - Estimated blood loss: None. Procedure: - The [id number] was introduced through the anus and advanced to the cecum, identified by appendiceal orifice and ileocecal valve. - The colonoscopy was somewhat difficult due to a tortuous colon and a redundant colon. Successful completion of the procedure was aided by straightening and shortening the scope to obtain bowel loop reduction and using manual pressure. - The patient tolerated the procedure well. - Endocuff Vision, a device designed to facilitate visualization of the mucosa, was used during the exam. - Imaging was performed to visualize the mucosa. - The quality of the bowel preparation was evaluated using the BBPS (Brooks Bowel Preparation Scale) with scores of: Left Colon = 3 (entire mucosa seen well with no residual staining, small fragments of stool or opaque liquid), Right Colon = 3 (entire mucosa seen well with no residual staining, small fragments of stool or opaque liquid) and Transverse Colon = 3 (entire mucosa seen well with no residual staining, small fragments of stool or opaque liquid). The total BBPS score equals 9. The quality of the bowel preparation was good. - She had a large amount of retained transparent, particulate stool that could be suctioned away. Findings: - The colon (entire examined portion) appeared normal. Just barely go the tip of the scope into a position to see the cecum. Impression: - The entire examined colon is normal. - Just barely go the tip of the scope into a position to see the cecum. - No specimens collected. - The colon is normal. Recommendation: - Repeat colonoscopy in 5 years for surveillance. Procedure Code(s): - 59186, Colonoscopy, flexible; diagnostic, including collection of specimen(s) by brushing or washing, when performed (separate procedure) CPT(R) - 2023 copyright [employer]. All Rights Reserved. The CPT codes, CCI edits and ICD codes generated are intended as suggestions and were generated based on input data. These codes are preliminary and upon meat carrier review may be revised to meet current compliance and payer requirements. The provider is responsible for the final determination of appropriate codes, and modifiers. Diagnosis Code(s): Sabi Cardenas MD This document has been electronically signed. Note Initiated:08/31/2024 Note Completed:08/31/2024 9:08 AM Procedure Note Sabi Cardenas MD - 08/31/2024 [facility] Patient: JOSE OVIEDO : 1965 Account: [id number] Sex at : Female Age: 58 Years Procedure: Colonoscopy Date: 08/31/2024 Attending Physician: SABI CARDENAS Referring MD: ODILIA AMEZQUITA Additional Staff: Paolo Cantrell RN Inner Tube Cutter; ANJALI MCDONALD, Hoop Coiler;TWILA MANDUJANO RN; Nicholas Grimes CRNA Indications: - Family history in extended maternal family suspicious forgenetic colon cancer, and mother dying at early age. Medications: - See the Anesthesia note for documentation of the administered medications Complications: - No immediate complications. Estimated Blood Loss: - Estimated blood loss: None. Procedure: - The [id number] was introduced through the anus and advanced to the cecum, identified by appendiceal orifice and ileocecal valve. - The colonoscopy was somewhat difficult due to a tortuous colon and a redundant colon. Successful completion of the procedurewas aided by straightening and shortening the scope to obtain bowelloop reduction and using manual pressure. - The patient tolerated the procedure well. - Endocuff Vision, a device designed to facilitate visualizationof the mucosa, was used during the exam. - Imaging was performed to visualize the mucosa. - The quality of the bowel preparation was evaluated using theBBPS (Brooks Bowel Preparation Scale) with scores of: Left Colon =3 (entire mucosa seen well with no residual staining, smallfragments of stool or opaque liquid), Right Colon = 3 (entire mucosa seenwell with no residual staining, small fragments of stool or opaqueliquid) and Transverse Colon = 3 (entire mucosa seen well with noresidual staining, small fragments of stool or opaque liquid). The totalBBPS score equals 9. The quality of the bowel preparation wasgood. - She had a large amount of retained transparent, particulatestool that could be suctioned away. Findings: - The colon (entire examined portion) appeared normal. Justbarely go the tip of the scope into a position to see the cecum. Impression: - The entire examined colon is normal. - Just barely go the tip of the scope into a position to see the cecum. - No specimens collected. - The colon is normal. Recommendation: - Repeat colonoscopy in 5 years for surveillance. Procedure Code(s): - 31752, Colonoscopy, flexible; diagnostic, including collectionof specimen(s) by brushing or washing, when performed (separate procedure) CPT(R) - 2023 copyright [employer]. All RightsReserved. The CPT codes, CCI edits and ICD codes generated are intended as suggestions and were generated based on input data. These codesare preliminary and upon meat carrier review may be revised to meet current compliance and payer requirements. The provider is responsiblefor the final determination of appropriate codes, and modifiers. Diagnosis Code(s): Sabi Cardenas MD This document has been electronically signed. Note Initiated:08/31/2024 Note Completed:08/31/2024 9:08 AM us Sabi Cardenas MD ENDOSCOPY ORDERABLES Final R esult [facility] from Last 3 Months Insurance [employer] Care Teams Appointment Setter Relationship Specialty Start Date End Date Odilia Amezquita APRN - W[place] [address] [place] [address] PCP - General 06/20/24
--- OUTSIDE RECORDS SUMMARY | 2024-11-14 07:07 | XMS_ITS | Encounter Summary ---
Author Organization [facility] Address [address] [place] [address] Care Team Providers Care Ecotherapist Name Role Phone Scott Zuleta PA-C Primary Care Provider [place] Pacheco MD Unavailable [phone] Source Comments In the event this information is protected by the Federal Confidentiality of Alcohol and Drug AbusePatient Records regulations: The Federal rules restrict any use of the information to criminally investigate or prosecute any alcohol or drug abuse patient.[facility] Encounter Details Date Type Department Care Team (Late st Contact Info) Description 04/07/2021 Patient Msg Radiology [address] [phone] Provider, Ccf Questionnaire Submission Social History Tobacco Use Types Packs/Day Years [...] N ot on file 02/04/2021 Data from: [email or web address].[email or web address].[email or web address]/. Last address used for calculation Not on [...] 2:15 PM EST Visit (SP) Office Gynecology [address] [place] [address] Raisa Elizondo APRN.EGG GATHERER [address] [place] [address] 1 YR FU documented as of this encounter Visit Diagnoses Not on filedocumented in this encounter Care Teams Ecotherapist Relationship Specialty Start Date End Date Scott Zuleta PA-C PCP - General Internal Medicine 12/21/19 Indiana Pacheco MD [address] [place] [address] Referring Family Medicine 01/16/21 documented as of this encounter
--- OUTSIDE RECORDS SUMMARY | 2024-11-14 07:07 | XMS_ITS | Encounter Summary ---
Author Organization [employer] Address [id number] [address] [place] [address] Care Team Providers Care Marine Plumber Name Role Phone Services, [facility] Primary Care Provider Encounter Details Date Type Department Care Team (Late Contact Info) Description 10/31/2024 Telephone [facility] [address] [facility] [address] [place] [phone] Nargis Mcgee CMA Social History Tobacco Use Types Packs/Day [...] encounter Miscellaneous Notes * Telephone Encounter - Nargis Mcgee CMA - 10/31/2024 1:12 PM EDT Patient had to call and reschedule her appt for January because she also takes her sister to her appts, and they had a colliding appt. She wants to talk to a nurse with some questions she has. documented in this encounter Plan of Treatment Upcoming Encounters Date Type Department Care Team (Late Contact Info) Description 01/31/2025 4:00 PM EDT Office Visit [facility] [address] [place] [phone] Luca Lambert MD [address] [place], [place] [phone] documented as of this encounter Visit Diagnoses Not on filedocumented in this encounter Care Teams Marine Plumber Relationship Specialty Start Date End Date Services, [facility] [address] [place], [place] PCP - General Family Medicine 04/05/18 documented as of this encounter
--- OUTSIDE RECORDS SUMMARY | 2024-11-14 07:07 | XMS_ITS | Encounter Summary ---
Author Organization [employer] [facility] Address [id number] [address] [place] [address] Care Team Providers Care Direct Support Staff Member Name Role Phone Services, [facility] Primary Care Provider Reason for Visit * Reason Onset Date Comments UA prior to appt 11/05/2024 Encounter Details Date Type Department Care Team (Late st Contact Info) Description 11/05/2024 Telephone [facility] [address] [place] [phone] Luca Lambert MD [address] [place], [place] [phone] UA prior to appt Social History Tobacco Use Types Packs/Day Years [...] encounter Miscellaneous Notes * Telephone Encounter - Cyn Olmedo - 11/05/2024 3:33 PM EDT Ksenia, this is Ana Oviedo and I'm calling about a question if I need to do another routine urinalysis for my upcoming appointment because I've already taken one but my appointment got rescheduled further back and I want to make sure it's in the correct time frame. If you can call me at [phone], I'd appreciate it. Thank you. Patient notified she will need to drop a urine, along with blood draw prior to Sept appt with Dr. Lambert documented in this encounter Plan of Treatment Upcoming Encounters Date Type Department Care Team (Late st Contact Info) Description 01/31/2025 4:00 PM EDT Office Visit [facility] [address] [place] [phone] Luca Lambert MD [address] [place] [address] documented as of this encounter Visit Diagnoses Not on filedocumented in this encounter Care Teams Direct Support Staff Member Relationship Specialty Start Date End Date Services, [facility] [address] [place], [place] PCP - General Family Medicine 04/05/18 documented as of this encounter
--- NOTE | 2024-11-14 07:08 | MM_ITS ---
Patient Name: JOSE MASON MR#: [id number] : 1965 Exam Date: 11/14/2024 Ordering Doctor: NON-STAFF PHYSICIAN RADIOLOGY REPORT PROCEDURE: MM TOMOSYNTHESIS SCREENING BI COMPARISON: MM TOMOSYNTHESIS SCREENING BI, 04/26/2023. MG MAMM SCREEN 3D FABIAN CAD, 03/17/2022. MG MAMM SCREEN 3D FABIAN CAD, 11/14/2020. MG MAMM FABIAN SCRN W CAD DIG, 07/03/2007. INDICATIONS: Screening for malignant neoplasm Calculator Name [facility] Breast Cancer Risk Assessment Tool 5 Year Breast Cancer Risk 1.50% Lifetime Breast Cancer Risk 8.30% Personal Breast Cancer No Personal Ovarian Cancer No Treatments hysterectomy, bilateral oopherectomy Family Cancers None LOCATION: [facility] BREAST COMPOSITION: The breasts are almost entirely fatty. FINDINGS: DIAGNOSTIC CATEGORY 1--NEGATIVE. RIGHT BREAST: No significant suspicious finding. LEFT BREAST: No significant suspicious finding. RECOMMENDATIONS: ROUTINE MAMMOGRAM AND CLINICAL EVALUATION IN 12 MONTHS. PLEASE NOTE: A NORMAL MAMMOGRAM DOES NOT EXCLUDE THE POSSIBILITY OF BREAST CANCER. A CLINICALLY SUSPICIOUS PALPABLE LUMP SHOULD BE BIOPSIED. Dictated by: Zain Cox MD on 11/14/2024 at 13:41 Approved by: Zain Cox MD on 11/14/2024 at 13:43
--- OUTSIDE RECORDS SUMMARY | 2024-11-14 07:25 | XMS_ITS | CCD ---
Author Organization [facility] Care Team Providers Care Convertible Top Installer Name Role Phone Vamshi Zuleta PA-C Primary Care Provider [place] Pacheco Unavailable [facility] Admitting Unavailable [facility] Attending Unavailable [facility] Primary Care Unavailable FLAQUITO, DR GERRI Lopez Consulting Unavailable [facility] Consulting Unavailable Vamshi Zuleta PA-C Primary Care Provider [place] Pacheco Unavailable [phone] [place] Pacheco MD Unavailable Vamshi Zuleta PA-C Primary Care Provider HARISH SPENCER Referring UnavailHARISH Hernandez Attending UnavailVAMSHI Burnett Primary Care Unavailable Charmaine PROJECT BUILDER - SWEATBAND FLANGER, Odilia [facility] Provider KRISTINE VALENTINE Referring Unavailable MYERHOLTZ, ODILIA Primary Care Unavailable KRISTINE VALENTINE Referring Unavailable MYERHOLTZ, ODILIA Primary Care Unavailable MYERHOLWIL, ODILIA Primary Care Unavailable VITALY MEZA Attending Unavailable VITALY MEZA Admitting Unavailable [facility] Primary Care Provider RADAMES DE LUNA Referring Unavailable RADAMES DE LUNA Attending Unavailable RADAMES DE LUNA Attending Unavailable Odilia Montano MD Unavailable KEYONA SINGH Attending Unavailable KEYONA SINGH Referring Unavailable KEYONA SINGH Attending Unavailable Allergies Allergy Classification Reported Allergen(s) Allergy Type Date of Onset Reaction(s) Facility (4 sources) Penicillins; Translations: [PENICILLINS] Drug Allergy 7 [facility] (20 sources) Sulfanilamide; Translations: [SULFANILAMIDE] Drug Allergy 7 [facility] (14 sources) Penicillins Drug Allergy 7 [facility] (1 source) Penicillins Drug allergy (disorder) 6 [facility] (1 source) Sulfonamides (Antibiotic) Drug allergy (disorder) 6 [facility] (4 sources) sulfADIAZINE; Translations: [SULFADIAZINE] Drug Allergy 4 [facility] (4 sources) Penicillins Propensity to adverse reactions to drug 7 [facility] (5 sources) House dust mite Propensity to adverse reactions 5 [facility] (5 sources) Mold Extract Drug Allergy 5 [facility] (5 sources) Penicillins Propensity to adverse reactions 5 [facility] (5 sources) Sulfonamides (Antibiotic) Propensity to adverse reactions 5 [facility] Medications Current Medications Medication Drug Class(es) Dates Sig (Normalized) Sig (Original) aspirin 81 mg delayed release oral tablet (20 sources) Platelet Aggregation Inhibitor, Nonsteroidal Anti-inflammatory Drug take 1 tablet by mouth in the morning aspirin 81 mg Take 1 tablet (81 mg total) by mouth in the morning. Active take 1 tablet by mouth once heather y aspirin 81 MG chewable tablet Take 1 tablet by mouth Every Day Active Comment on above: Take 81 mg by mouth once daily. calcium chloride 0.0014 meq/ml / potassium chloride 0.004 meq/ml / sodium chloride 0.103 meq/ml / sodium lactate 0.028 meq/ml injectable solution (1 source) Start: 025 IntraVENous, at 100 mL/hr, CONTINUOUS, Starting on Tue08/31/24 at 0715, Pre-op (day of surgery) cholecalciferol 0.125 mg oral capsule (11 sources) Vitamin D Start: take 1 capsule by mouth in the morning cholecalciferol (VITAMIN D3) 5,000 units capsule Take 1 capsule (5,000 Units total) by mouth in the morning. 90 capsule 3 10/05/2021 Active gabapentin 300 mg oral capsule (11 sources) Anti-epileptic Agent take 1 capsule by mouth three times daily as needed gabapentin (NEURONTIN) 300 mg capsule Take 1 capsule (300 mg total) by mouth 3 (three) times a day. Patient do as needed Active iv contrast (will be provided with radiology test) (1 source) Start: End: iv contrast (will be provided with radiology test) MRI Cardiac w/Qflow Inject, intravenously, once for 1 dose. No IV access, insert saline lock prior to the beginning of sedation, infusion, injection of imaging exam. Discontinue saline lock post exam. If Pt has a central line or IVAD, may access for administration according to line specific nursing protocol. Once exam is complete flush line and de-access according to line specific nursing protocol in the MR contrast administration guidelines link 1 Each 0 03/17/2022 03/18/2022 Active Comment on above: MRI Cardiac w/Qflow Inject, intravenously, once for 1 dose. No IV access, insert saline lock prior to the beginning of sedation, infusion, injection of imaging exam. Discontinue saline lock post exam. If Pt has a central line or IVAD, may access for administration according to line specific nursing protocol. Once exam is complete flush line and de-access according to line specific nursing protocol in the MR contrast administration guidelines link lisinopril 5 mg oral tablet (20 sources) Angiotensin Converting Enzyme Inhibitor Start: End: take 1 tablet by mouth in the morning lisinopriL (PRINIVIL,ZESTRIL) 5 mg tablet Indications: Primary hypertension TAKE 1 TABLET BY MOUTH IN THE MORNING. PT NEEDS AN APPT FOR FURTHER REFILLS. 90 tablet 11/05/2024 Active Comment on above: Take 5 mg by mouth o nce daily. loratadine 10 mg oral capsule (2 sources) End: loratadine 10 mg cap Take 10 mg by mouth as needed. 0 03/10/2022 Discontinued (Discontinued by Patient) Comment on above: Take 10 mg by mouth as needed. perflutren lipid microspheres 1.3 mL in NaCl (PF) 0.9% 10 mL injection (DEFINITY) (3 sources) Start: End: perflutren lipid microspheres 1.3 mL in NaCl (PF) 0.9% 10 mL injection ([employer]ITY) predniSONE 10 mg oral tablet (5 sources) Start: predniSONE (Deltasone) 10 MG tablet Indications: Tibialis posterior tendonitis, left , Arthritis of left subtalar joint , Pain and swelling of left ankle , Difficulty walking 1 tablet twice daily x 7 days; followed by 1 tablet daily as directed until complete 21 tablet 10/02/2024 Active rosuvastatin calcium 20 mg oral tablet (12 sources) HMG-CoA Reductase Inhibitor Start: take 1 tablet by mouth in the morning rosuvastatin (CRESTOR) 20 mg tablet Take 1 tablet (20 mg total) by mouth in the morning. 08/05/2023 Active 125 ml sodium chloride 9 mg/ml prefilled syringe (3 sources) Start: End: sodium chloride 0.9 % (flush) 10 mL (BD POSIFLUSH) Completed/Discontinued Medications Medication Drug Class(es) Dates Sig (Normalized) Sig (Original) cephalexin 500 mg oral capsule (3 sources) Cephalosporin Antibacterial Start: 03-29-2024 End: 08-16-2024 cephALEXin (KEFLEX) 500 MG capsule 1 capsule 03/29/2024 08/16/2024 Discontinued (Therapy completed) Problems Active Problems Problem Classification Problem Date Documented Da te Episodic/Chronic Aortic; peripheral; and visceral artery aneurysms (1 source) Aneurysm of ascending aorta; Translations: [Aneurysm of ascending aorta without rupture (HCC)] Chronic Cancer of uterus (15 sources) Malignant neoplasm of endometrium of corpus uteri ; Translations: [Malignant neoplasm of endometrium] Onset: 04-08-2017 Resolved: 09-05-2020 03-30-2017 Chronic Cancer of uterus (6 sources) History of malignant neoplasm of uterine body; Translations: [Personal history of malignant neoplasm of other parts of uterus] Onset: 03-14-2024 Episodic Chronic kidney disease (4 sources) Chronic kidney disease stage 2; Translations: [Chronic kidney disease, stage 2 (mild)] 05-25-2023 Chronic Chronic kidney disease (2 sources) Chronic kidney disease; Translations: [Chronic kidney disease, stage 3 unspecified] Onset: 07-19-2024 Diabetes mellitus without complication (2 sources) Type 2 diabetes mellitus without complications; Translations: [Type 2 diabetes mellitus without complications] Onset: 07-19-2024 Chronic Disorders of lipid metabolism (4 sources) Mixed hyperlipidemia; Translations: [Pure hypercholesterolemia , unspecified] Onset: 07-19-2024 Chronic Essential hypertension (6 sources) Essential hypertension; Translations: [Essential (primary) hypertension] Onset: 07-19-2024 09-30-2023 Chronic Gastrointestinal hemorrhage (2 sources) Rectal hemorrhage; Translations: [Hemorrhage of anus and rectum] Onset: 08-30-2024 08-30-2024 Episodic Genitourinary symptoms and ill-defined conditions (1 source) Urinary incontinence; Translations: [Unspecified urinary incontinence] 02-18-2021 Chronic Osteoarthritis (4 sources) Arthritis of left subtalar joint; Translations: [Primary osteoarthritis, left ankle and foot] 10-02-2024 Chronic Other aftercare (4 sources) History of malignant neoplasm of endometrium; Translations: [Encounter for follow-up examination after completed treatment for malignant neoplasm] Episodic Other circulatory disease (1 source) Disorder of artery; Translations: [Disorder of arteries and arterioles, unspecified] Chronic Other connective tissue disease (4 sources) Tendinitis of left posterior tibial tendon; Translations: [Posterior tibial tendinitis, left leg] 10-02-2024 Episodic Other lower respiratory disease (2 sources) Other forms of dyspnea; Translations: [Other forms of dyspnea] Onset: 07-19-2024 Episodic Other nervous system disorders (4 sources) Difficulty walking; Translations: [Difficulty in walking, not elsewhere classified] 10-02-2024 Chronic Other non-traumatic joint disorders (4 sources) Ankle pain; Translations: [Pain in left ankle and joints of left foot] 10-02-2024 Episodic Other nutritional; endocrine; and metabolic disorders (6 sources) Body mass index 40+ - severely obese; Translations: [Body mass index (BMI) 45.0-49.9, adult] Onset: 04-05-2024 04-05-2024 Chronic Other nutritional; endocrine; and metabolic disorders (2 sources) Body mass index (BMI) 45.0-49.9, adult; Translations: [Body mass index (BMI) 45.0-49.9, adult] Onset: 07-19-2024 Chronic Other nutritional; endocrine; and metabolic disorders (2 sources) Morbid (severe) obesity due to excess calories; Translations: [Morbid (severe) obesity due to excess calories] Onset: 07-19-2024 Chronic Other screening for suspected conditions (not mental disorders or infectious disease) (14 sources) Encounter for screening mammogram for malignant neoplasm of breast; Translations: [Patient encounter status] Onset: 03-17-2022 Resolved: 05-05-2024 Episodic Residual codes; unclassified (2 sources) Family history of cancer of colon; Translations: [Family history of malignant neoplasm of digestive organs] Onset: 08-31-2024 08-31-2024 Episodic Spondylosis; intervertebral disc disorders; other back problems (2 sources) Degeneration of lumbar intervertebral disc; Translations: [Other intervertebral disc degeneration, lumbar region] 02-18-2021 Chronic Spondylosis; intervertebral disc disorders; other back problems (3 sources) Lumbar radiculopathy; Translations: [Radiculopathy, lumbar region] 02-18-2021 Episodic Thyroid disorders (2 sources) Hypothyroidism, unspecified; Translations: [Hypothyroidism, unspecified] Onset: 07-19-2024 Chronic Unclassified (1 source) Obesity, class 3; Translations: [Obesity, class 3] Onset: 07-19-2024 Unclassified (1 source) Primary obstructive sleep apnea of ; Translations: [Primary obstructive sleep apnea of ] Onset: 07-19-2024 Past or Other Problems Problem Classification Problem Date Documented Da te Episodic/Chronic Unclassified (1 source) Obesity, class 3; Translations: [Obesity, class 3] Onset: 07-19-2024 Unclassified (1 source) Primary obstructive sleep apnea of ; Translations: [Primary obstructive sleep apnea of ] Onset: 07-19-2024 Results Test Name Value Interpretation Reference Range Facility XR Ankle - left 3 [facility] Result: 3 views left ankle: Weight-bearing: AP, mortise, lateral: 10/02/2024: Unremarkable for acute osseous or joint pathology. Unremarkable for fracture or stress fracture changes. Fairly extensive degenerative arthritic changes of the posterior subtalar joint facet; with what appears to be a prominent evans's fracture fragment posteriorly. Minimal arthritic changes of the tibial-talar joint. [facility] Rad[facility] Study observation (narrative) [facility] Follow-Upon 09-20-2024 Follow-Up [id number] MasonAna 1965 F Date Provider Department Center 09/20/2024 [id number] STORE[facility] [place] [facility] Family History Problem Relation Age of Onset Obesity Mother Stroke Mother Sudden Mother Cancer Maternal Grandfather Cancer Mother's Brother Family Status - Relation Status Age at Mother Maternal Grandfather Mother's Brother Level of Service:79972 NE OFFICE/OUTPATIENT ESTABLISHED MOD MDM 30 MIN Normal [facility] Rama 09-11-2024 ALT [Catalytic activity/Vol] 17 U/L Normal 7-52 [facility] Comment on above: Performed By: #### L [id number] #### [facility] ([facility]) [address] [place] [address] Lauren 09-11-2024 AST [Catalytic activity/Vol] 15 U/L Normal 13-39 [facility] Comment on above: Performed By: #### L AB131 #### [facility] ([facility]) [address] [place] [address] HEMOGLOBIN A1Con 09-11-2024 Glucose [Mass/Vol] 123 mg/dL Normal [facility] Comment on above: Performed By: #### L AB90 #### [facility] ([facility]) [address] [place] [address] HbA1c (Bld) [Mass fraction] 5.9 % Normal 4.0-6.0 [facility] Comment on above: Performed By: #### L AB90 #### [facility] ([facility]) [address] [place] [address] LIPID PANELon 09-11-2024 CHOL/HDL 5.1 mg/dL Normal [facility] Comment on above: Performed By: #### L AB18 #### [facility] ([facility]) [address] [place] [address] Cholesterol [Mass/Vol] 213 mg/dL High 120-200 [facility] Comment on above: Performed By: #### L AB18 #### [facility] ([facility]) [address] [place] [address] Magnesium [Mass/Vol] 227 mg/dL High <150 [facility] Comment on above: Result Comment: TRIG LYCERIDE REFERENCE RANGE: 20 YEARS AND OLDER CARDIOVASCULAR RISK LESS THAN 150 mg/dL LOW RISK 150 TO 199 mg/dL BORDERLINE RISK 200 mg/dL AND GREATER HIGH RISK Performed By: #### L AB18 #### [facility] ([facility]) [address] [place] [address] Magnesium [Mass/Vol] 126 mg/dL Normal 0-160 [facility] Comment on above: Performed By: #### L AB18 #### [facility] ([facility]) [address] [place] [address] Magnesium [Mass/Vol] 42 mg/dL Normal 23-92 [facility] Comment on above: Performed By: #### L AB18 #### [facility] ([facility]) [address] [place] [address] NON HDL CHOL. (LDL+VLDL) 171 Normal [facility] Comment on above: Performed By: #### L AB18 #### [facility] ([facility]) [address] [place] [address] TOTAL VLDL-C 45 mg/dL High 0-40 [facility] Comment on above: Performed By: #### L AB18 #### [facility] ([facility]) [address] [place] [address] Labon 09-11-2024 Lab [id number] Ana Mason 1965 F Date Provider Department [place] 09/11/2024 [id number]-[facility] D[facility] LAB RESOURCE DCC DRAW DCC No family history on file Normal [facility] TSHon 09-11-2024 THYROTROPIN (MIU/L) IN SER/PLAS BY DETECTION LIMIT <= 0.05 MIU/L 1.58 mIU/L Normal 0.34-5.60 [facility] Comment on above: Performed By: #### L [id number] #### [facility] ([facility]) [address] [place] [address] Colonoscopy studyon 09-01-19 [facility] Patient: ANA MASON : 1965 Account: [id number] Sex at : Female Age: 58 Years Procedure: Colonoscopy Date: 08/31/2024 Attending Physician: VITALY MEZA Referring MD: ODILIA MONTANO Additional Staff: Paolo Cantrell RN Metal Bonding Helper; ANJALI MCDONALD, Spout Liner; TWILA MANDUJANO RN; Nicholas Grimes CRNA Indications: - Family history in extended maternal family suspicious for genetic colon cancer, and mother dying at early age. Medications: - See the Anesthesia note for documentation of the administered medications Complications: - No immediate complications. Estimated Blood Loss: - Estimated blood loss: None. Procedure: - The [id number] was introduced through the anus and advanced [...] bowel preparation was evaluated using the BBPS ([place] Bowel Preparation Scale) with scores of: Left [...] 5 years for surveillance. Procedure Code(s): - 59069, Colonoscopy, flexible; diagnostic, including collection of specimen(s) by brushing or washing, when performed (separate procedure) CPT(R) - 2023 copyright [employer]. All Rights Reserved. The CPT codes, CCI edits and ICD codes generated are intended as suggestions and were generated based on input data. These codes are preliminary and upon cash applications clerk review may be revised to meet current compliance and payer requirements. The provider is responsible for the final determination of appropriate codes, and modifiers. Diagnosis Code(s): Vitaly Meza MD This document has been electronically signed. Note Initiated:08/31/2024 Note Completed:08/31/2024 9:08 AM Vitaly Cueto M D - 08/31/2024 [facility] Patient: ANA MASON : 1965 Account: [id number] Sex at : Female Age: 58 Years Procedure: Colonoscopy Date: 08/31/2024 Attending Physician: VITALY MEZA Referring MD: ODILIA MONTANO Additional Staff: Paolo Cantrell RN Metal Bonding Helper; ANJALI MCDONALD, Spout Liner; TWILA MANDUJANO RN; Nicholas Grimes CRNA Indications: - Family history in extended maternal family suspicious for genetic colon cancer, and mother dying at early age. Medications: - See the Anesthesia note for documentation of the administered medications Complications: - No immediate complications. Estimated Blood Loss: - Estimated blood loss: None. Procedure: - The [id number] was introduced through the anus and advanced [...] bowel preparation was evaluated using the BBPS ([place] Bowel Preparation Scale) with scores of: Left [...] 5 years for surveillance. Procedure Code(s): - 63208, Colonoscopy, flexible; diagnostic, including collection of specimen(s) by brushing or washing, when performed (separate procedure) CPT(R) - 2023 copyright [employer]. All Rights Reserved. The CPT codes, CCI edits and ICD codes generated are intended as suggestions and were generated based on input data. These codes are preliminary and upon cash applications clerk review may be revised to meet current compliance and payer requirements. The provider is responsible for the final determination of appropriate codes, and modifiers. Diagnosis Code(s): Vitaly Meza MD This document has been electronically signed. Note Initiated:08/31/2024 Note Completed:08/31/2024 9:08 AM [facility] myLINGO 36on 08-28-2024 36 Cardiac clearance faxed. Sarah Beck MA Normal [facility] Office Visiton 07-19-2024 Follow-up visit [id number] Ana Mason 1965 F Date Provider Department Center 07/19/2024 [id number] DE LUNA [facility] [place] [facility] No family history on file Level of Service:23139 NE OFFICE/OUTPATIENT NEW MODERATE MDM 45 MINUTES Reason for Visit and Comments: Abnormal ECG [293] Normal [facility] Basic Metabolic Panelon 02-2 Anion gap [Moles/Vol] 11 mmol/L 9 - 16 mmol/L [facility] myLINGO Calcium [Mass/Vol] 9.9 mg/dL 8.6 - 10. 4 mg/dL [facility] Chloride [Moles/Vol] 97 mmol/L Low 98 - 10 7 mmol/L [facility] CO2 [Moles/Vol] 29 mmol/L 20 - 31 mmol/L [facility] Creatinine [Mass/Vol] 1.1 mg/dL High 0.50 - 0.90 mg/dL [facility] Est, Glom Filt Rate 60 Low - PINF [facility] Comment on above: These results are not intended for use [...] following therapy that affects renal tubular secretion. Glucose [Mass/Vol] 182 mg/dL High 74 - 99 mg/dL [facility] Interpretation and review of laboratory results Abnormal [facility] Potassium [Moles/Vol] 4.6 mmol/L 3.7 - 5.3 mmol/L [facility] Sodium [Moles/Vol] 137 mmol/L 136 - 145 mmol/L [facility] Urea nitrogen [Mass/Vol] 24 mg/dL High 6 - 20 mg/dL [facility] Urea nitrogen/Creatinine [Mass ratio] 22 mg/mg High 9 - 20 [facility] Basic Metabolic Profon 07-10 Anion gap [Moles/Vol] 11 mmol/L Normal -16 [facility] Comment on above: Performed By: #### C DP, BMP #### [facility] [address] [place] [address] Book Jogger: Gerri Armas MD BUN/CRE Ratio 22 High - [facility] Comment on above: Performed By: #### C DP, BMP #### [facility] [address] [place] [address] Book Jogger: Gerri Armas MD Calcium [Mass/Vol] 9.9 mg/dL Normal 8.6-10.4 [facility] Comment on above: Performed By: #### C DP, BMP #### [facility] [address] [place] [address] Book Jogger: Gerri Armas MD Chloride [Moles/Vol] 97 mmol/L Low 98-107 [facility] Comment on above: Performed By: #### C DP, BMP #### [facility] [address] [place] [address] Book Jogger: Gerri Armas MD CO2 [Moles/Vol] 29 mmol/L Normal 20-31 [facility] Comment on above: Performed By: #### C DP, BMP #### [facility] [address] [place] [address] Book Jogger: Gerri Armas MD Creatinine [Mass/Vol] 1.1 mg/dL High 0.50-0.90 [facility] Comment on above: Performed By: #### C DP, BMP #### [facility] [address] [place] [address] Book Jogger: Gerri Armas MD GFR/1.73 sq M.predicted among non-blacks MDRD (S/P/Bld) [Vol rate/Area] 60 mL/min/{1.73_m2} Low >60 [facility] Comment on above: Result Comment: These results are not intended for use [...] following therapy that affects renal tubular secretion. Performed By: #### C DP, BMP #### [facility] [address] [place] [address] Book Jogger: Gerri Armas MD Glucose [Mass/Vol] 182 mg/dL High 74-99 [facility] Comment on above: Performed By: #### C DP, BMP #### [facility] [address] [place], [place] [id number] Book Jogger: Gerri Armas MD Potassium [Moles/Vol] 4.6 mmol/L Normal 3.7-5.3 [facility] Comment on above: Performed By: #### C DP, BMP #### [facility] [address] [place], [place] [id number] Book Jogger: Gerri Armas MD Sodium [Moles/Vol] 137 mmol/L Normal 136-145 [facility] Comment on above: Performed By: #### C DP, BMP #### [facility] [address] [place] [address] Book Jogger: Gerri Armas MD Urea nitrogen [Mass/Vol] 24 mg/dL High 6-20 [facility] Comment on above: Performed By: #### C DP, BMP #### [facility] [address] [place] [address] Book Jogger: Gerri Armas MD CBC with Auto Differentialon 07-10-2024 Basophils (Bld) [#/Vol] 0.06 10*3/uL [facility] Basophils/100 WBC (Bld) 1 % 0 - 2 % [facility] Eosinophils (Bld) [#/Vol] 0.20 10*3/uL [facility] Eosinophils/100 WBC (Bld) 3 % 1 - 4 % [facility] Erythrocyte distribution width (RBC) [Ratio] 14.9 % High 11.8 - 14.4 % [facility] Hematocrit (Bld) [Volume fraction] 42.7 % 36.3 - 47.1 % [facility] Hemoglobin (Bld) [Mass/Vol] 14.1 g/dL 11.9 - 15.1 g/dL [facility] [facility] Immature granulocytes (Bld) [#/Vol] 0.05 10*3/uL [facility] Immature granulocytes/100 WBC (Bld) 1 % High 0 [facility] Interpretation and review of laboratory results Abnormal [facility] Lymphocytes/100 WBC (Bld) 27 % 24 - 43 % [facility] Lymphocytes/100 WBC (Bld) 2.09 % [facility] MCH (RBC) [Entitic mass] 27.5 pg 25.2 - 33.5 pg [facility] MCHC (RBC) [Mass/Vol] 33.0 g/dL 28.4 - 34.8 g/dL [facility] MCV (RBC) [Entitic vol] 83.4 fL 82.6 - 102.9 fL [facility] Monocytes/100 WBC (Bld) 5 % 3 - 12 % [facility] Monocytes/100 WBC (Bld) 0.35 % [facility] Neutrophils/100 WBC (Bld) 63 % 36 - 65 % [facility] Nucleated RBC/100 WBC (Bld) [Ratio] 0.0 % 0.0 per 100 WBC [facility] Platelet mean volume (Bld) [Entitic vol] 10.2 fL 8.1 - 13.5 fL [facility] Platelets (Bld) [#/Vol] 253 10*3/uL [facility] RBC (Bld) [#/Vol] 5.12 10*6/uL High 3.95 - 5.1 1 m/uL [facility] Segmented neutrophils/100 WBC (Bld) 4.95 % [facility] WBC other (Bld) [#/Vol] 7.7 [facility] CBC with Diffon 07-10-2024 Abs. Basophil 0.06 k/uL Normal 0.00-0.20 [facility] Comment on above: Performed By: #### C CHRISTINE, BMP #### [facility] [address] [place] [address] Book Jogger: Gerri Armas MD Abs.Imm.Granulocyte 0.05 k/uL Normal 0.00-0.30 [facility] Comment on above: Performed By: #### C CHRISTINE, BMP #### [facility] [address] [place] [address] [place] [address] Book Jogger: Gerri Armas MD Abs.Neutrophil (Seg) 4.95 k/uL Normal 1.50-8.10 [facility] Comment on above: Performed By: #### C DP, BMP #### [address] [place], [facility] Book Jogger: Gerri Armas MD Basophils/100 WBC (Bld) 1 % Normal 0-2 [facility] Comment on above: Performed By: #### C DP, BMP #### [address] [place] [id number] Book Jogger: Gerri Armas MD Eosinophils (Bld) [#/Vol] 0.20 10*3/uL Normal 0.00-0.44 [facility] Comment on above: Performed By: #### C DP, BMP #### [address] [place], [facility] Book Jogger: Gerri Armas MD Eosinophils/100 WBC (Bld) 3 % Normal 1-4 [facility] Comment on above: Performed By: #### C DP, BMP #### [address] [place] [id number] Book Jogger: Gerri Armas MD Erythrocyte distribution width (RBC) [Ratio] 14.9 % High 11.8-14.4 [facility] Comment on above: Performed By: #### C DP, BMP #### [address] [place], [facility] Book Jogger: Gerri Armas MD Hematocrit (Bld) [Volume fraction] 42.7 % Normal 36.3-47.1 [facility] Comment on above: Performed By: #### C DP, BMP #### [address] [place] [address] Book Jogger: Gerri Armas MD Hemoglobin (Bld) [Mass/Vol] 14.1 g/dL Normal 11.9-15.1 [facility] Comment on above: Performed By: #### C DP, BMP #### [facility] [address] [place] [address] Book Jogger: Gerri Armas MD Immature granulocytes/100 WBC (Bld) 1 % High 0 [facility] Comment on above: Performed By: #### C DP, BMP #### [facility] [address] [place] [address] Book Jogger: Gerri Armas MD Lymphocytes (Bld) [#/Vol] 2.09 10*3/uL Normal 1.10-3.70 [facility] Comment on above: Performed By: #### C DP, BMP #### [address] [place] [address] Book Jogger: Gerri Armas MD Lymphocytes/100 WBC (Bld) 27 % Normal 24-43 [facility] Comment on above: Performed By: #### C DP, BMP #### [address] [place] [address] Book Jogger: Gerri Armas MD MCH (RBC) [Entitic mass] 27.5 pg Normal 25.2-33.5 [facility] Comment on above: Performed By: #### C DP, BMP #### [address] [place] [address] Book Jogger: Gerri Armas MD MCHC (RBC) [Mass/Vol] 33.0 g/dL Normal 28.4-34.8 [facility] Comment on above: Performed By: #### C DP, BMP #### [address] [place] [address] Book Jogger: Gerri Armas MD MCV (RBC) [Entitic vol] 83.4 fL Normal 82.6-102.9 [facility] Comment on above: Performed By: #### C DP, BMP #### [facility] [address] [place] [address] Book Jogger: Gerri Armas MD Monocytes (Bld) [#/Vol] 0.35 10*3/uL Normal 0.10-1.20 [facility] Comment on above: Performed By: #### C DP, BMP #### [address] [place], [place] [id number] Book Jogger: Gerri Armas MD Monocytes/100 WBC (Bld) 5 % Normal 3-12 [facility] Comment on above: Performed By: #### C DP, BMP #### [address] [place], [place] [id number] Book Jogger: eGrri Armas MD Neutrophil (Seg) 63 % Normal 36-65 [facility] Comment on above: Performed By: #### C DP, BMP #### [address] [place], [place] [id number] Book Jogger: Gerri Armas MD NRBC Automated 0.0 per 100 WBC Normal 0.0 [facility] Comment on above: Performed By: #### C DP, BMP #### [address] [place], [place] [id number] Book Jogger: Gerri Armas MD Platelet mean volume (Bld) [Entitic vol] 10.2 fL Normal 8.1-13.5 [facility] Comment on above: Performed By: #### C DP, BMP #### [address] [place] [address] Book Jogger: Gerri Armas MD Platelets (Bld) [#/Vol] 253 10*3/uL Normal 138-453 [facility] Comment on above: Performed By: #### C DP, BMP #### [facility] [address] [place] [address] Book Jogger: Gerri Armas MD RBC (Bld) [#/Vol] 5.12 10*6/uL High 3.95-5.11 [facility] Comment on above: Performed By: #### C DP, BMP #### [facility] [address] [place] [address] Book Jogger: Gerri Armas MD WBC (Bld) [#/Vol] 7.7 10*3/uL Normal 3.5-11.3 [facility] Comment on above: Performed By: #### C DP, BMP #### [facility] [address] [place] [address] Book Jogger: Gerri Armas MD EKG 12 LeadOrdered By: Diana garciaad on 06-20-2024 Atrial Rate 59 BPM [employer] Work Phone: P [place] 14 degrees [employer] Work Phone: P-R Interval 186 ms [facility] Work Phone: Q-T Interval 396 ms [employer] Phone: QRS Duration 82 ms [employer] Work Phone: QTc Calculation (Bazett) 392 ms [employer] Work Phone: R [place] 0 degrees [employer] Work Phone: T [place] 26 degrees [employer] Work Phone: Ventricular Rate 59 BPM [employer] Work Phone: [employer] Work Phone: EKG 12 Leadon 06-20-2024 Sinus bradycardia Possible Anterior infarct , age undetermined Abnormal ECG No previous ECGs available Confirmed by Diana Lee MD ([id number]) on 06/20/2024 8:06:38 AM [facility] Diana Lee MD - 06/20/2024 Sinus bradycardia Possible Anterior infarct , age undetermined Abnormal ECG No previous ECGs available Confirmed by Diana Lee MD ([id number]) on 06/20/2024 8:06:38 AM [facility] CNOVSPon 03-14-2024 CNOVSP Visit (SP) Office (GYNML) ANA MASON ([id number]) 1965 F Date Time Provider Department 03/14/24 9:15 AM HARISH SPENCER [facility] During your visit today, we recorded the following information about you: Pulse Respiration Blood pressure Weight 55/minute 18/minute 131/84 115.5 kg Harish Spencer, PROJECT BUILDER.PUBLIC HEALTH SPECIALIST 03/14/2024 9:58 AM Signed DATE OF SERVICE:03/14/2024 PROBLEM: Ana Mason presents for follow up visit. DIAGNOSIS: IA grade 1 endometrial cancer SURGERY AND DATE: 04/28/2017 Laparoscopic total hysterectomy, bilateral salpingo-oophorectomy , cystoscopy PATHOLOGY: FINAL DIAGNOSIS 1. Uterus and cervix, hysterectomy: Cervix - Chronic cervicitis and squamous metaplasia. - Negative for neoplasm. Endometrium - Well differentiated adenocarcinoma, endometrioid cell type with mucinous differentiation, FIGO grade 1. - Atypical endometrial hyperplasia. Myometrium - Superficial invasion by endometrioid adenocarcinoma (2 mm depth of invasion/ 19 mm myometrial thickness; 10.5% myoinvasion). - Adenomyosis. Serosa - No significant pathologic findings. 2. Right fallopian tube, excision - Serosal adhesions. - Negative for neoplasm. 3. Right ovary, excision - Stromal hyperthecosis. - Fibrous cortical adhesions with hemosiderin-laden macrophages. - Negative for neoplasm. 4. Left fallopian tube, excision - No significant pathologic findings. - Negative for neoplasm. 5. Left ovary, excision - Benign cyst, most consistent with a benign follicle cyst. - Stromal hyperthecosis. - Fibrous cortical adhesions. - Negative for neoplasm. SYNOPTIC REPORT OF CHOW PATHOLOGIC FINDINGS UTERUS AND CERVIX WITH BILATERAL OVARIES AND FALLOPIAN TUBES: Specimen: Uterine corpus Cervix Right ovary Left ovary Right fallopian tube Left fallopian tube Procedure: Simple hysterectomy Bilateral salpingo-oophorectomy Lymph Node Sampling: Not performed Specimen Integrity: Intact hysterectomy specimen Histologic Type: Endometrioid adenocarcinoma Histologic Grade: FIGO grade 1 Myometrial Invasion: Present Depth of invasion: 2 mm Myometrial thickness: 19 mm Tumor Involvement of Cervix: Not involved Other Organs Submitted: Right ovary not involved Left ovary not involved Right fallopian tube not involved Left fallopian tube not involved Lymph-Vascular Invasion: Not identified TNM Descriptors: Not applicable Primary Tumor (pT): pT1a (IA): Tumor limited to endometrium or invades less than 1/2 of the myometrium Regional Lymph Nodes (pN): pNX: Regional lymph nodes cannot be assessed No pelvic nodes submitted or found No para-aortic nodes submitted or found No other lymph nodes submitted or found Distant Metastasis (pM): Not applicable Advertising Agency Manager Tumor block: Specify: A4 SUBJECTIVE/INTERVAL HISTORY: Ana Mason reports that she feels well. No fever or chills. No acute shortness of breath, cough, or chest pain. No abdominal pain, nausea, vomiting,. No dysuria, gross hematuria, urinary frequency, urinary urgency. No vaginal bleeding or discharge. Getting mammogram [facility] Continues to loose weight w diet AND exercise! Alternating diarrhea/constipation Colonoscopy scheduled OBJECTIVE: VITALS: BP 131/84 Pulse (!) 55 Resp 18 Wt 115.5 kg (254 lb 10.1 oz) SpO2 97% BMI 48.11 kg/m? GENERAL: She is alert, oriented, pleasant and cooperative. No acute distress HEENT: Normocephalic, atraumatic, NECK: Supple, no adenopathy LUNGS: Clear to auscultation bilaterally. HEART: Regular rate and rhythm, no murmurs. ABDOMEN: Abdomen soft, non-tender, non distended PELVIC: External genitalia, anus and urethral meatus are normal in appearance and without lesions. Vagina and cuff are normal in appearance on speculum examination. Bimanual examination normal. Pap obtained. LOWER EXTREMITIES: normal Project/Production Manager Imaging offered: Patient declines. The sensitive examination was discussed with the Patient or Patient's Authorized Advertising Agency Manager. As applicable, any other physician, advance practice provider, medical student, or other health professional student that will be observing or involved in the sensitive examination for educational or training purposes was discussed with the Patient or Authorized Advertising Agency Manager. The Patient or Authorized Advertising Agency Manager has agreed to proceed with the sensitive examination. (Sensitive examination includes inspection and/or palpation of the breasts, pelvis, prostate and anorectal regions) ASSESSMENT: Ana Mason is a 58 year old women with history of stage IA grade 1 endometrial cancer, no martha-invasion, no LVSI 04/2017 PLAN: - patient doing well, clinically no evidence of disease - Follow-up Pap - Health maintenance; mammogram due she will g (more content not included)... [facility] PAP TESTon 03-14-2024 ADEQUACY Satisfactory for interpretation. [facility] Comment on above: Order Comment: Speci men Type: FLUID SPECIMEN Ordering Facility: [facility] Address: [address] [place] [address] Performed By: #### L [id number] #### [facility] CLIA [id number] [address] [place] [address] [place] CASE REPORT [facility] Comment on above: Order Comment: Speci men Type: FLUID SPECIMEN Ordering Facility: [facility] Address: [address] [place] [address] Result Comment: Gyne cologic Cytology Report Case: [id number] Authorizing Provider: Harish Spencer, Collected: 03/14/2024 09:51 AM PROJECT BUILDER.PUBLIC HEALTH SPECIALIST Ordering Location: Gynecology Received: 03/14/2024 04:38 PM First Screen: [place], L[place], CT, ASCP Specimen: Pap Test, ThinPrep, Vagina Performed By: #### L [id number] #### [facility] CLIA [id number] [address] [place] [address] [place] CLINICAL HISTORY, CYTOLOGY, CRIBBER [facility] Comment on above: Order Comment: Speci men Type: FLUID SPECIMEN Ordering Facility: [facility] Address: [address] [place] [address] Result Comment: Hist ory of Malignancy (Describe) Hysterectomy, Total Performed By: #### L [id number] #### [facility] CLIA [id number] [address] [place] [address] [place] FINAL PERFORMING LAB [facility] Comment on above: Order Comment: Speci men Type: FLUID SPECIMEN Ordering Facility: [facility] Address: [address] [place] [address] Result Comment: Tech nical component, hemodialysis charge nurse screening performed at [facility], [address] [place] [address] CLIA# [id number] Diagnostic interpretation performed at [facility], [address] [place] [address] CLIA# [id number] Machine Spreader: Rufus Langley M.D. Performed By: #### L [id number] #### [facility] CLIA [id number] [address] [place] [address] [place] INTERPRETATION, CYTOLOGY, CRIBBER [facility] Comment on above: Order Comment: Speci men Type: FLUID SPECIMEN Ordering Facility: [facility] Address: [address] [place] [address] Result Comment: Nega tive for intraepithelial lesion or malignancy. Performed By: #### L [id number] #### [facility] CLIA [id number] [address] [place] [address] [place] PAP DISCLAIMER COMMENT The Pap Smear is a screening test for cervical cancer. False negative results occur with all screening tests, emphasizing the need for rescreening at recommended intervals, and clinical correlation. [facility] Comment on above: Order Comment: Speci men Type: FLUID SPECIMEN Ordering Facility: [facility] Address: [address] [place] [address] Performed By: #### L [id number] #### [facility] CLIA [id number] [address] [place] [address] [place] PAP SORTING AND FOLDING SUPERVISOR COMMENT This specimen has been analyzed by the ThinPrep Imaging System, an automated imaging and review system, which assists the laboratory in evaluating cells on ThinPrep Pap tests. Following automated imaging, selected delgado from every slide are reviewed by a hemodialysis charge nurse. Normal [facility] Comment on above: Order Comment: Speci men Type: FLUID SPECIMEN Ordering Facility: [facility] Address: [address] [place] [address] Performed By: #### L [id number] #### [facility] CLIA [id number] [address] [place] [address] [place] MG MAMM SCREEN 3D FABIAN CADon 03-17-2022 MG MAMM SCREEN 3D FABIAN CAD Patient: ANA MASON Exam Date: 03/17/2022 : 1965 Gender:F Ordering : DR. [place] PACHECO M.D. Admission #: [id number] Family : Order #: [id number] CLICK HERE TO VIEW EXAM RADIOLOGY REPORT PROCEDURE: MAMMOGRAM SCREENING 3D BILATERAL CAD COMPARISON: MG MAMM SCREEN FABIAN W CAD, 07/17/2019. MG MAMM SCREEN 3D FABIAN CAD, 11/14/2020. INDICATIONS: Screening mammography Calculator Name NCI Breast Cancer Risk Assessment Tool 5 Year Breast Cancer Risk 1.40% Lifetime Breast Cancer Risk 8.70% Personal Breast Cancer No Personal Ovarian Cancer No Treatments hysterectomy, bilateral oopherectomy Family Cancers None LOCATION: [facility] BREAST COMPOSITION: Almost entirely fatty. FINDINGS: DIAGNOSTIC CATEGORY 1--NEGATIVE. NO CHANGE FROM COMPARISON ASSESSMENT. Scattered benign-appearing calcifications are present. RIGHT BREAST: No significant suspicious finding. LEFT BREAST: No significant suspicious finding. RECOMMENDATIONS: ROUTINE MAMMOGRAM AND CLINICAL EVALUATION IN 12 MONTHS. PLEASE NOTE: A NORMAL MAMMOGRAM DOES NOT EXCLUDE THE POSSIBILITY OF BREAST CANCER. A CLINICALLY SUSPICIOUS PALPABLE LUMP SHOULD BE BIOPSIED. Dictated by: Gerri Zhang MD on 03/17/2022 at 08:44 Approved by: Gerri Zhang MD on 03/17/2022 at 08:46 Normal [facility] MR Lumbar spine WO and W con trast Saulo 02-18-2021 IMPRESSION: Degenerative changes in the low lumbar spine with canal, foraminal and subarticular zone narrowing as detailed but no severe stenosis. No evidence of a marrow replacement process or fracture deformity in the imaged spine. No abnormal intradural enhancement. Anatomic Thoracic/Lumbar Variant: None. L4-5 is considered the level of the iliac crest and assume there are 5 lumbar-type vertebrae. Clinical Social Work Aide: PSCB Transcribe Date/Time: Feb 18 2021 11:51A Dictated by : WEN SUAER MD This examination was interpreted and the report reviewed and electronically signed by: WEN SAUER MD on Feb 18 2021 2:39PM [facility] DIVISION OF RADIOLOGY * * *Final Report* * * DATE OF EXAM: Feb 18 2021 10:59AM LNM 0304 - MRI LUMBAR SPINE WO/W IVCON / PROCEDURE REASON: multiple diagnoses * * * * Physician Interpretation * * * * EXAMINATION: MRI LUMBAR SPINE WO/W IVCON CLINICAL HISTORY: Degeneration of lumbar intervertebral disc Lumbar radiculopathy Hx of cancer of endometrium Urinary incontinence, unspecified type TECHNIQUE: Routine lumbosacral spine MR protocol without and with intravenous gadolinium. MQ: [id number] Contrast: Dotarem. Contrast Dose: 20 cc Route of Administration: IV COMPARISON: None. RESULT: Counting reference: Lumbosacral junction. For the purposes of this report, L4-5 is considered the level of the iliac crest and assume there are 5 lumbar-type vertebrae. Anatomic variant: None. Localizer images: No additional findings. Alignment: Grade 1 degenerative anterolisthesis at L4-5 secondary to facet arthropathy. Bone marrow signal/fracture: No evidence of pathologic marrow infiltration. No evidence of prior fracture. Conus: The conus is within normal limits of signal intensity and morphology. No abnormal intradural enhancement. Paraspinal soft tissues: Paraspinal soft tissues are within normal limits. Lower thoracic spine: Visualized lower thoracic canal and foramina are patent. T12-L1: Canal and foramina are patent. L1-L2: Canal and foramina are patent. L2-L3: Canal and foramina are patent L3-L4: Canal and foramina are patent L4-L5: Disc bulging and endplate osteophytes and facet hypertrophy. Degenerative anterolisthesis. Mild narrowing of the spinal canal and right subarticular zone. Mild bilateral foraminal stenosis L5-S1: Disc bulging and endplate osteophytes and facet hypertrophy. Mild bilateral foraminal stenosis. Sacrum and iliac wings: The visualized sacrum and iliac wings are within normal limits. DIVISION OF RADIOLOGY Provider, Drew Mendez [facility] - 02/18/2021 * * *Final Report* * * DATE OF EXAM: Feb 18 2021 10:59AM [facility] 0304 - MRI LUMBAR SPINE WO/W IVCON / PROCEDURE REASON: multiple diagnoses * * * * Physician Interpretation * * * * EXAMINATION: MRI LUMBAR SPINE WO/W IVCON CLINICAL HISTORY: Degeneration of lumbar intervertebral disc Lumbar radiculopathy Hx of cancer of endometrium Urinary incontinence, unspecified type TECHNIQUE: Routine lumbosacral spine MR protocol without and with intravenous gadolinium. MQ: [id number] Contrast: Dotarem. Contrast Dose: 20 cc Route of Administration: IV COMPARISON: None. RESULT: Counting reference: Lumbosacral junction. For the purposes of this report, L4-5 is considered the level of the iliac crest and assume there are 5 lumbar-type vertebrae. Anatomic variant: None. Localizer images: No additional findings. Alignment: Grade 1 degenerative anterolisthesis at L4-5 secondary to facet arthropathy. Bone marrow signal/fracture: No evidence of pathologic marrow infiltration. No evidence of prior fracture. Conus: The conus is within normal limits of signal intensity and morphology. No abnormal intradural enhancement. Paraspinal soft tissues: Paraspinal soft tissues are within normal limits. Lower thoracic spine: Visualized lower thoracic canal and foramina are patent. T12-L1: Canal and foramina are patent. L1-L2: Canal and foramina are patent. L2-L3: Canal and foramina are patent L3-L4: Canal and foramina are patent L4-L5: Disc bulging and endplate osteophytes and facet hypertrophy. Degenerative anterolisthesis. Mild narrowing of the spinal canal and right subarticular zone. Mild bilateral foraminal stenosis L5-S1: Disc bulging and endplate osteophytes and facet hypertrophy. Mild bilateral foraminal stenosis. Sacrum and iliac wings: The visualized sacrum and iliac wings are within normal limits. IMPRESSION IMPRESSION: Degenerative changes in the low lumbar spine with canal, foraminal and subarticular zone narrowing as detailed but no severe stenosis. No evidence of a marrow replacement process or fracture deformity in the imaged spine. No abnormal intradural enhancement. Anatomic Thoracic/Lumbar Variant: None. L4-5 is considered the level of the iliac crest and assume there are 5 lumbar-type vertebrae. Clinical Social Work Aide: DONTRELL Transcribe Date/Time: Feb 18 2021 11:51A Dictated by : WEN SAUER MD This examination was interpreted and the report reviewed and electronically signed by: EWN SAUER MD on Feb 18 2021 2:39PM EST [facility] Radiology Study observation (narrative) [facility] MR Lumbar spine WO and W con trast IVOrdered By: [facility] Provider on 02-18-[address] [facility] XR LUMBAR GENERAL 3V AP/LAT/ L5-S1on 02-18-[address] [facility] Vital Signs Date Time Vital Sign Value Performing Clinician Faci lity 11-05-2024 09:38-0400 Body height 154.9 cm Keyona Singh DPM Work Phone: [facility] 11-05-2024 09:38-0400 Body mass index (BMI) [Ratio] 47.24 kg/m2 Keyona Singh DPM Work Phone: [facility] 11-05-2024 09:38-0400 Body weight 113.4 kg Keyona Singh DPM Work Phone: [facility] 10-02-2024 08:55-0400 Body height 154.9 cm Keyona Singh DPM Work Phone: [facility] 10-02-2024 08:55-0400 Body mass index (BMI) [Ratio] 47.24 kg/m2 Keyona Singh DPM Work Phone: [facility] 10-02-2024 08:55-0400 Body weight 113.4 kg Keyona Singh DPM Work Phone: [facility] 08-31-2024 09:35-0400 Diastolic blood pressure 55 mm[Hg] Vitaly Meza MD Work Phone: [facility] 08-31-2024 09:35-0400 Heart rate 48 /min Vitaly Meza MD Work Phone: [facility]INGO 08-31-2024 09:35-0400 Respiratory rate 12 /min Vitaly Meza MD Work Phone: [facility] 08-31-2024 09:35-0400 SaO2% (BldA) [Mass fraction] 95 % [facility]italy Meza MD [facility] 08-31-2024 09:35-0400 Systolic blood pressure 118 mm[Hg] Vitaly Meza MD Work Phone: [facility] [employer]ING[facility] 08-31-2024 09:05-0400 Body temperature 97.9 [degF] Vitaly Meza MD Work Phone: [facility] [employer] 08-31-2024 07:21-0400 Body height 154.9 cm Vitaly Meza MD [facility] 08-31-2024 07:21-0400 Body mass index (BMI) [Ratio] 47.61 kg/m2 Vitaly Meza MD Work [facility] 08-31-2024 07:21-0400 Body weight 114.31 kg Vitaly Meza MD Work Phone[email or web address] 03-14-2024 09:24-0400 Body mass index (BMI) [Ratio] 48.11 kg/m2 Harish Spencer APRN.PUBLIC HEALTH SPECIALIST Work Phone: [facility] 03-14-2024 09:24-0400 Body weight 115.5 kg Harish Spencer APRN.PUBLIC HEALTH SPECIALIST Work Phone: [facility] 03-14-2024 09:24-0400 Diastolic blood pressure 84 mm[Hg] Harish Spencer APRN.CNP Work Phone: [facility] 03-14-2024 09:24-0400 Heart rate 55 /min Harish Spencer APRN.PUBLIC HEALTH SPECIALIST Work Phone: [facility] 03-14-2024 09:24-0400 Respiratory rate 18 /min Harish Spencer PROJECT BUILDER.PUBLIC HEALTH SPECIALIST Work Phone: [facility] 03-14-2024 09:24-0400 SaO2% (BldA) [Mass fraction] 97 % Harish Spencer PROJECT BUILDER.PUBLIC HEALTH SPECIALIST Work Phone: [facility] 03-14-2024 09:24-0400 Systolic blood pressure 131 mm[Hg] Harish Spencer PROJECT BUILDER.PUBLIC HEALTH SPECIALIST Work Phone: [facility] 08-18-2023 14:15-0400 Body mass index (BMI) [Ratio] 48.18 kg/m2 Rachael Martin MD Work Phone: [facility] 08-18-2023 14:15-0400 Body weight 115.67 kg Rachael Martin MD Work Phone: [facility] 08-18-2023 14:15-0400 Diastolic blood pressure 75 mm[Hg] Rachael Martin MD Work Phone: [facility] 08-18-2023 14:15-0400 Heart rate 83 /min Rachael Martin MD Work Phone: [facility] 08-18-2023 14:15-0400 Systolic blood pressure 131 mm[Hg] Rachael Martin MD Work Phone: [facility] 08-18-2023 14:13-0400 SaO2% (BldA) [Mass fraction] 95 % Rachael Martin MD Work Phone: [facility] 03-09-2023 09:14-0400 Body temperature 98.49 [degF] Harish Spencer APRN.PUBLIC HEALTH SPECIALIST Work Phone: [facility] 03-09-2023 09:14-0400 Body weight 125.19 kg Harish Spencer PROJECT BUILDER.PUBLIC HEALTH SPECIALIST Work Phone: [facility] 03-09-2023 09:14-0400 Diastolic blood pressure 63 mm[Hg] Harish Osbornegalianos PROJECT BUILDER.PUBLIC HEALTH SPECIALIST Work Phone: [facility] 03-09-2023 09:14-0400 Heart rate 76 /min Harish Driverianos PROJECT BUILDER.PUBLIC HEALTH SPECIALIST Work Phone: [facility] 03-09-2023 09:14-0400 Systolic blood pressure 150 mm[Hg] Harish Osbornegalianos PROJECT BUILDER.PUBLIC HEALTH SPECIALIST Work Phone: [facility] 03-10-2022 08:37-0400 Body temperature 97.81 [degF] Harish Osbornegalianos PROJECT BUILDER.PUBLIC HEALTH SPECIALIST Work Phone: [facility] 03-10-2022 08:37-0400 Body weight 126.06 kg Harish Driverianomorro PROJECT BUILDER.PUBLIC HEALTH SPECIALIST Work Phone: [facility] 03-10-2022 08:37-0400 Diastolic blood pressure 59 mm[Hg] Harish Osbornegalianos PROJECT BUILDER.PUBLIC HEALTH SPECIALIST Work Phone: [facility] 03-10-2022 08:37-0400 Heart rate 96 /min Harish Osbornegalianos PROJECT BUILDER.PUBLIC HEALTH SPECIALIST Work Phone: [facility] 03-10-2022 08:37-0400 Respiratory rate 14 /min Harish Driverianos PROJECT BUILDER.PUBLIC HEALTH SPECIALIST Work Phone: [facility] 03-10-2022 08:37-0400 Systolic blood pressure 141 mm[Hg] Harish Osbornegalianos PROJECT BUILDER.PUBLIC HEALTH SPECIALIST Work Phone: [facility] 09-02-2021 08:19-0400 Body temperature 97.5 [degF] Harish Osbornegalianos PROJECT BUILDER.PUBLIC HEALTH SPECIALIST Work Phone: [facility] 09-02-2021 08:19-0400 Body weight 126.1 kg Harish Driverianos PROJECT BUILDER.PUBLIC HEALTH SPECIALIST Work Phone: [facility] 09-02-2021 08:19-0400 Diastolic blood pressure 79 mm[Hg] Harish Gargalianos PROJECT BUILDER.PUBLIC HEALTH SPECIALIST Work Phone: [facility] 09-02-2021 08:19-0400 Heart rate 64 /min Harish Driverianos PROJECT BUILDER.PUBLIC HEALTH SPECIALIST Work Phone: [facility] 09-02-2021 08:19-0400 Respiratory rate 14 /min Harish Osbornegalianos PROJECT BUILDER.PUBLIC HEALTH SPECIALIST Work Phone: [facility] 09-02-2021 08:19-0400 Systolic blood pressure 132 mm[Hg] Harish Osbornegalianos PROJECT BUILDER.PUBLIC HEALTH SPECIALIST Work Phone: [facility] Encounters Encounter Date Encounter Type Care Provider Facility Start: 11-05-2024 End: 11-05-2024 Bamboo flowsheet Keyona Singh DPM Work Phone: [facility] Start: 11-05-2024 End: 11-05-2024 Bamboo flowsheet Keyona Singh DPM Work Phone: [facility] Start: 11-05-2024 End: 11-05-2024 Telephone encounter Rachael Martin MD Work Phone: [facility] Comment on above: UA prior to appt Start: 11-05-2024 End: 11-05-2024 Office outpatient visit 15 minutes Keyona Singh DPM Work Phone: [facility] Comment on above: Tibialis posterior t endonitis, left (Primary Dx); Arthritis of left subtalar joint; Pain and swelling of left ankle; Difficulty walking Start: 11-05-2024 End: 11-05-2024 ambulatory KEYONA SINGH Not Available Start: 11-03-2024 End: 11-05-2024 Refill Rachael Martin MD Work Phone: [facility] Comment on above: Primary hypertension Start: 10-02-2024 End: 10-02-2024 Bamboo flowsheet Keyona Singh DPM Work Phone: [facility] Start: 10-02-2024 End: 10-02-2024 Bamboo flowsheet Keyona Singh DPM Work Phone: [facility] Start: 10-02-2024 End: 10-02-2024 ambulatory KEYONA SINGH Not Available Start: 10-02-2024 End: 10-02-2024 Office outpatient new 45 minutes Keyona Singh DPM Work Phone: [facility] Comment on above: Tibialis posterior t endonitis, left (Primary Dx); Arthritis of left subtalar joint; Pain and swelling of left ankle; Difficulty walking Start: 09-20-2024 ambulatory [facility] Start: 09-12-2024 End: 09-12-2024 Telephone encounter Taya Brian CMA [facility] Start: 09-11-2024 ambulatory [facility] Start: 09-04-2024 End: 09-04-2024 Orders Only Jahaira Brian [facility] Comment on above: CKD (chronic kidney disease) stage 2, GFR 60-89 ml/min (Primary Dx); Stage 3b chronic kidney disease ([facility] Start: 08-31-2024 End: 08-31-2024 ambulatory ODILIA MONTANO [facility] Start: 08-31-2024 End: 08-31-2024 Subsequent hospital visit by physician Vitaly Meza MD Work Phone: [facility] Start: 08-09-2024 End: 08-09-2024 ambulatory [facility] Start: 08-03-2024 End: 08-06-2024 Chu Martin MD Work Phone: [facility] Comment on above: Primary hypertension Start: 07-19-2024 ambulatory [facility] Start: 07-19-2024 Encounter for other preprocedural examination [facility] Start: 07-11-2024 End: 07-11-2024 Telephone encounter Scanning Provider External N [facility] Start: 07-10-2024 End: 07-10-2024 ambulatory [facility] Start: 07-10-2024 Encounter for other preprocedural examination [facility] Start: 07-10-2024 End: 07-10-2024 Patient encounter status Odilia Tucker NP Work Phone: [facility] Start: 07-10-2024 End: 07-10-2024 Subsequent hospital visit by physician Odilia Tucker NP Work Phone: [facility] Comment on above: Pre-op testing Start: 07-07-2024 End: 07-10-2024 Chu Martin MD Work Phone: N [facility] Comment on above: Primary hypertension Start: 06-20-2024 End: 06-20-2024 ambulatory KRISTINE VALENTINE [facility] Start: 06-20-2024 End: 06-20-2024 Patient encounter status Odilia Tucker [employer] Work Phone: [facility] Start: 06-20-2024 End: 06-20-2024 Subsequent hospital visit by physician Odilia Tucker NP Work Phone: [facility] Comment on above: Pre-op testing Start: 03-14-2024 End: 03-14-2024 Follow-up encounter Harish Spencer APRN.CNP Work Phone: Gynecology Comment on above: Encounter for follow -up surveillance of endometrial cancer (Primary Dx); History of uterine cancer; Encounter for screening mammogram for breast cancer Start: 03-14-2024 End: 03-14-2024 Patient encounter procedure Harish Spencer APRN.PUBLIC HEALTH SPECIALIST Work Phone: Gynecology Start: 03-14-2024 End: 03-14-2024 ambulatory HARISH SPENCER Facility:[facility] Start: 09-30-2023 End: 09-30-2023 Refill Rachael Martin MD Work Phone: [facility] Comment on above: Primary hypertension Start: 08-18-2023 End: 08-18-2023 Office outpatient visit 25 minutes Rachael Martin MD Work Phone: [facility] Comment on above: CKD (chronic kidney disease) stage 2, GFR 60-89 ml/min (Primary Dx) Start: 08-09-2023 Telephone encounter Rnada Fortune CMA [facility] Start: 05-25-2023 Orders Only Rachael pino MD Work Phone: [facility] Comment on above: CKD (chronic kidney disease) stage 2, GFR 60-89 ml/min (Primary Dx) Start: 03-09-2023 End: 03-09-2023 Follow-up encounter Harish Spencer APRN.CNP Work Phone: Gynecology Comment on above: Encounter for follow -up surveillance of endometrial cancer (Primary Dx); History of uterine cancer Start: 03-09-2023 End: 03-09-2023 Patient encounter procedure Harish Spencer APRN.PUBLIC HEALTH SPECIALIST Work Phone: [facility] Start: 09-15-2022 Orders Only Edda BUTLERN.PUBLIC HEALTH SPECIALIST Work Phone: Cardiology Comment on above: Aneurysm of ascendin g aorta without rupture (HCC) (Primary Dx) Start: 03-17-2022 End: 03-18-2022 Orders Only Jordan Salas MD Work Phone: Cardiology Comment on above: 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) Start: 03-10-2022 End: 03-10-2022 Follow-up encounter Harish Spencer APRN.CNP Work Phone: Gynecology Comment on above: Encounter for follow -up surveillance of endometrial cancer (Primary Dx); History of uterine cancer Start: 03-10-2022 End: 03-10-2022 Patient encounter procedure Harish Spencer APRN.CNP Work Phone: [facility] Start: 09-02-2021 End: 09-02-2021 Follow-up encounter Harish Spencer APRN.CNP Work Phone: Gynecology Comment on above: History of uterine c ancer (Primary Dx); Encounter for follow-up surveillance of endometrial cancer Start: 09-02-2021 End: 09-02-2021 Patient encounter procedure Harish Spencer APRN.CNP Work Phone: [facility] Start: 02-18-2021 End: 02-18-2021 Subsequent hospital visit by physician Xr [facility] Comment on above: Degeneration of lumb ar intervertebral disc [M51.36] Procedures Date Procedure Procedure Detail Performing Clinician Start: 10-02-2024 Radex ankle complete minimum 3 views Keyona Singh DPM Work Phone: Start: 08-31-2024 End: 08-31-2024 Colonoscopy Vitaly Meza MD Work Phone: Start: 07-10-2024 Basic metabolic pane l calcium total Kristine Valentine APRN - PUBLIC HEALTH SPECIALIST Work Phone: Start: 06-20-2024 Ecg routine ecg w/le ast 12 lds w/i&r Kristine Valentine PROJECT BUILDER - PUBLIC HEALTH SPECIALIST Work Phone: Start: 03-14-2024 Microscopic observat ion [Identifier] in Cervix by Cyto stain Keyona Singh DPM Work Phone: Start: 09-01-2021 Adult depression screening assessment Harish Spencer APRN.CNP Work Phone: Start: 02-18-2021 Mri spinal canal lum bar w/o & w/contr matrl Swati Flores APRN.CNP Work Phone: Start: 02-18-2021 Radex spine lumbosac ral 2/3 views Swati Flores APRN.MADYSON Work Phone: Start: 09-03-2020 Colonoscopy Odilia Charmaine FARRN - [employer] Work Phone: Start: 04-05-2018 Mammography Keyona Jane her DPM Work Phone: Plan of Treatment Date Care Activity Detail Author Start: 08-31-2034 Screening for malign ant neoplasm of colon [facility] Start: 01-14-2031 DTaP,Tdap and Td Vaccines (3 - Td or Tdap) DTaP,Tdap and Td Vaccines (3 - Td or Tdap) [facility] Start: 01-14-2031 DTaP/Tdap/Td vaccine (3 - Td or Tdap) DTaP/Tdap/Td vaccine (3 - Td or Tdap) [facility] Start: 01-14-2031 Urine microalbumin profile DTaP,Tdap,Td Vaccine (3 - Td or Tdap) [facility] Start: 09-03-2030 Screening for malign ant neoplasm of colon [facility] Start: 03-09-2028 Screening for malign ant neoplasm of cervix Cervical Cancer Screening [facility] Start: 03-14-2027 Screening for malign ant neoplasm of cervix [facility] Start: 03-10-2027 PAP TESTING PAP TESTING [facility] Start: 09-02-2026 PAP TESTING PAP TESTING [facility] Start: 03-04-2026 PAP TESTING PAP TESTING [facility] Start: 09-05-2025 HPV TESTING HPV TESTING [facility] Start: 09-05-2025 Screening for malign ant neoplasm of cervix HPV/Cotest [facility] Start: 03-20-2025 End: 03-20-2025 ambulatory 03/20/2025 2:15 PM EST Visit (SP) Office Gynecology [address] [place] [address] Harish Spencer APRN.PUBLIC HEALTH SPECIALIST [address] [place] [address] 1 YR FU Gynecology Comment on above: 1 YR FU Start: 01-31-2025 End: 01-31-2025 Patient encounter procedure 01/31/2025 4:00 PM EDT Office Visit [facility] [place] [address] [place] [phone] Rachael Martin MD [address] [place], [place] [phone] [facility] Start: 01-14-2025 Influenza vaccination P [facility] Start: 12-14-2024 Influenza vaccination Flu vacc ine (Season Ended) [facility] Start: 12-13-2024 End: 12-13-2024 Patient encounter procedure 12/13/2024 9:00 AM EDT Office Visit [facility] [address] [place] [id number] Rachael Martin MD [facility] [place], [place] [id number] [facility] Start: 11-05-2024 End: 11-05-2024 Patient encounter procedure [facility] Comment on above: Arrived Start: 10-01-2024 Diabetes Screening Diabetes Screenin g [facility] Start: 09-12-2024 End: 09-12-2024 Patient encounter procedure [facility] Start: 08-31-2024 End: 08-31-2024 Admission to same day surgery center 08/31/2024 8:00 AM EDT - 08/31/2024 8:[address] [facility] [address] [place] [address] Vitaly Meza MD [address] [place] [address] COLORECTAL CANCER SCREENING, NOT HIGH RISK [facility] Comment on above: COLORECTAL CANCER SC REENING, NOT HIGH RISK Start: 08-31-2024 End: 08-31-2024 Colon ca scrn not hi rsk ind [facility] Start: 08-31-2024 Subsequent hospital visit by physician 08/31/2024 8:00 AM EDT Hospital Encounter [facility] [address] [place] [address] Vitaly Meza MD [address] [place], [place] [id number] [facility] Start: 08-17-2024 Adult BMI Screening Adult BMI Screen ing [employer] [facility] Start: 08-12-2024 End: 08-12-2024 Basic metabolic 2000 panel - Serum or Plasma Basic Metabolic Panel Lab Routine CKD (chronic kidney disease) stage 2, GFR 60-89 ml/min Expected: 08/12/2024 (Approximate), Expires: 08/12/2024 [facility] Work Phone: Comment on above: Expected: 08/12/2024 (Approximate), Expires: 08/12/2024 Start: 08-12-2024 End: 08-12-2024 CBC panel - Blood by Automated count CBC without diff Lab Routine CKD (chronic kidney disease) stage 2, GFR 60-89 ml/min Expected: 08/12/2024 (Approximate), Expires: 08/12/2024 [facility] [facility] Comment on above: Expected: 08/12/2024 (Approximate), Expires: 08/12/2024 Start: 08-12-2024 End: 08-12-2024 Magnesium [Mass/volume] in Serum or Plasma Magnesium Lab Routine CKD (chronic kidney disease) stage 2, GFR 60-89 ml/min Expected: 08/12/2024 (Approximate), Expires: 08/12/2024 [facility] Comment on above: Expected: 08/12/2024 (Approximate), Expires: 08/12/2024 Start: 08-12-2024 End: 08-12-2024 Parathyroid Hormone, intact Parathyroid Hormone, intact Lab Routine CKD (chronic kidney disease) stage 2, GFR 60-89 ml/min Expected: 08/12/2024 (Approximate), Expires: 08/12/2024 [employer] [facility] Comment on above: Expected: 08/12/2024 (Approximate), Expires: 08/12/2024 Start: 08-12-2024 End: 08-12-2024 Phosphate [Mass/volume] in Serum or Plasma Phosphorus Lab Routine CKD (chronic kidney disease) stage 2, GFR 60-89 ml/min Expected: 08/12/2024 (Approximate), Expires: 08/12/2024 [facility] [employer] [facility] Comment on above: Expected: 08/12/2024 (Approximate), Expires: 08/12/2024 Start: 08-12-2024 End: 08-12-2024 Protein creat ratio Protein creat ratio Lab Routine CKD (chronic kidney disease) stage 2, GFR 60-89 ml/min Expected: 08/12/2024 (Approximate), Expires: 08/12/2024 [facility] Comment on above: Expected: 08/12/2024 (Approximate), Expires: 08/12/2024 Start: 03-14-2024 End: 03-14-2024 ambulatory 03/14/2024 9:15 AM EDT Visit (SP) Office Gynecology [address] [place] [address] Harish Spencer, PROJECT BUILDER.PUBLIC HEALTH SPECIALIST [address] [place] [address] 1 YR FU Gynecology Comment on above: 1 YR FU Start: 01-15-2024 COVID-19 Vaccine ( season) COVID-19 Vaccine ( season) [facility] Start: 01-15-2024 COVID-19 Vaccine ( season) COVID-19 Vaccine ( season) [facility] Start: 01-15-2024 Covid-19 Vaccine ( season) Covid-19 Vaccine ( season) [facility] Start: 01-15-2024 Influenza vaccination [facility] Start: 12-15-2023 Influenza vaccination Flu vaccine (# 1) [facility] Start: 08-18-2023 End: 08-18-2023 Patient encounter procedure 08/18/2023 2:30 PM EDT Office Visit [facility] [address] [place] [address] Rachael Martin MD [address] [place] [address] [facility] Start: 07-30-2023 Adult BMI Screening Adult BMI Screen ing [facility] Start: 07-24-2023 End: 05-25-2024 Basic metabolic 2000 panel - Serum or Plasma Basic Metabolic Panel Lab Routine CKD (chronic kidney disease) stage 2, GFR 60-89 ml/min Expected: 07/24/2023, Expires: 05/25/2024 [facility] Work Phone: Comment on above: Expected: 07/24/2023 , Expires: 05/25/2024 Start: 07-24-2023 End: 05-25-2024 CBC panel - Blood by Automated count CBC without diff Lab Routine CKD (chronic kidney disease) stage 2, GFR 60-89 ml/min Expected: 07/24/2023, Expires: 05/25/2024 [facility] Comment on above: Expected: 07/24/2023 , Expires: 05/25/2024 Start: 07-24-2023 End: 05-25-2024 Magnesium [Mass/volume] in Serum or Plasma Magnesium Lab Routine CKD (chronic kidney disease) stage 2, GFR 60-89 ml/min Expected: 07/24/2023, Expires: 05/25/2024 [facility] Comment on above: Expected: 07/24/2023 , Expires: 05/25/2024 Start: 07-24-2023 End: 05-25-2024 Phosphate [Mass/volume] in Serum or Plasma Phosphorus Lab Routine CKD (chronic kidney disease) stage 2, GFR 60-89 ml/min Expected: 07/24/2023, Expires: 05/25/2024 [facility] Comment on above: Expected: 07/24/2023 , Expires: 05/25/2024 Start: 07-24-2023 End: 05-25-2024 Protein creat ratio Protein creat ratio Lab Routine CKD (chronic kidney disease) stage 2, GFR 60-89 ml/min Expected: 07/24/2023, Expires: 05/25/2024 [facility] Comment on above: Expected: 07/24/2023 , Expires: 05/25/2024 Start: 01-14-2023 Covid-19 Vaccine ( season) Covid-[address] Vaccine () [facility] Start: 01-14-2023 Influenza vaccination [facility] Start: 09-01-2022 Adult depression screening assessment DEPRESSION SCREENING [facility] Start: 05-16-2022 DEPRESSION ASSESSMENT DEPRESSION ASS ESSMENT [facility] Start: 01-14-2022 Influenza vaccination INFLUENZ A (Season Ended) [facility] Start: 01-14-2022 Pneumococcal 50+ yea rs Vaccine (2 of 2 - PCV) Pneumococcal 50+ years Vaccine (2 of 2 - PCV) [facility] Start: 05-16-2021 DEPRESSION ASSESSMENT DEPRESSION ASS ESSMENT [facility] Start: 05-08-2021 COVID-19 VACCINE (3 - Booster for Moderna series) COVID-19 VACCINE (3 - Booster for Moderna series) [facility] Start: 05-08-2021 COVID-19 VACCINE (3 - Moderna series) COVID-19 VACCINE (3 - Moderna series) [facility] Start: 04-29-2020 DIABETES SCREEN DIABETES SCREEN [facility] Start: 04-29-2020 Diabetes Screening Diabetes Screenin g [facility] Start: 04-05-2020 Screening for malign ant neoplasm of breast Breast cancer screen [facility] Start: 04-05-2019 Screening for malign ant neoplasm of breast [facility] Start: 2014 Administration of varicella zoster vaccine Zoster (Shingles) Vaccine (1 of 2) [employer] [facility] Start: 2014 Shingles vaccine (1 of 2) Shingles vaccine (1 of 2) [facility] Start: 2014 SHINGRIX VACCINE (1 of 2) SHINGRIX VACCINE (1 of 2) [facility] Start: 2009 COLOGUARD (FIT-DNA) COLOGUARD (FIT-D NA) [facility] Start: [address] [facility] Start: 2009 COLORECTAL CANCER SCREENING COLORECTAL CANCER SCREENING [facility] Start: [address] COLONOGRAPHY [facility] Start: 2009 FECAL OCCULT BLOOD FECAL OCCULT BLOO D [facility] Start: 2009 Lipid 1996 panel - S darian or Plasma Lipid Screening [facility] Start: 2009 Lipid panel Lipid Screening [facility] Start: 2009 LIPID SCREEN LIPID SCREEN [facility] Start: 2009 Screening for malign ant neoplasm of colon [facility] Start: 2009 SIGMOIDOSCOPY SIGMOIDOSCOPY [facility] Start: [address] [facility] Start: 2004 Screening for malign ant neoplasm of breast Mammogram Screening [facility] Start: 12-10-1999 Diabetes screen Diabetes screen [facility] Start: 12-10-1983 Hepatitis B vaccine (1 of 3 - 19+ 3-dose series) Hepatitis B vaccine (1 of 3 - 19+ 3-dose series) [facility] Start: 12-10-1983 Urine microalbumin profile DTAP,TDAP,TD (1 - Tdap) [facility] Start: 1982 Adult BMI Follow Up Plan Adult BMI Follow Up Plan [facility] Start: 1982 Anxiety Screening Anxiety Screening [facility] Start: 1982 Depression Screening Depression Scre ing [facility] Start: 1982 HEPATITIS C SCREENING HEPATITIS C SC REENING [facility] Start: 1982 Hepatitis C screening Hepatitis C sc reen [facility] [employer] Start: 1982 HIV SCREENING HIV SCREENING [facility] Start: 1982 HIV screening HIV Screening [facility] Start: 12-10-1979 HIV screening HIV screen [facility] [employer] Start: 1976 Depression Screen Depression Screen [facility] Start: 1976 Depression Screening Depression Scre ing [facility] Start: 1976 Tobacco Screening Tobacco Screening [facility] Start: 1974 Lipid panel Lipids [facility] Start: 1969 COVID-19 VACCINE (1) COVID-19 VACCIN E (1) [facility] Start: 1964 HEPATITIS B (1 of 3 - 3-dose series) HEPATITIS B (1 of 3 - 3-dose series) [facility] Start: 1964 Hepatitis B Vaccine (1 of 3 - 3-dose series) Hepatitis B Vaccine (1 of 3 - 3-dose series) [facility] Start: 1964 Screening for malign ant neoplasm of colon [facility] End: 09-04-2025 Basic metabolic 2000 panel - Serum or Plasma Basic Metabolic Panel Lab Routine CKD (chronic kidney disease) stage 2, GFR 60-89 ml/min 1 Occurrences starting 09/04/2024 until 09/04/2025 [facility] Comment on above: 1 Occurrences starti ng 09/04/2024 until 09/04/2025 End: 04-16-2023 Cardiac mri for velocity flow mapping MRI CARDIAC VELOCITY FLOW MAP Radiology Routine Disorder of arteries and arterioles (HCC) 1 Occurrences starting 03/17/2022 until 04/16/2023 [facility] Work Phone: Comment on above: 1 Occurrences starti ng 03/17/2022 until 04/16/2023 End: 04-16-2023 Cardiac mri w/wo contrast & further seq MRI CARDIAC MORPH FUNC WO/W IVCON Radiology Routine Disorder of arteries and arterioles (HCC) 1 Occurrences starting 03/17/2022 until 04/16/2023 [facility] Work Phone: Comment on above: 1 Occurrences starti ng 03/17/2022 until 04/16/2023 End: 09-04-2025 CBC panel - Blood by Automated count CBC without diff Lab Routine CKD (chronic kidney disease) stage 2, GFR 60-89 ml/min 1 Occurrences starting 09/04/2024 until 09/04/2025 [facility] Comment on above: 1 Occurrences starti ng 09/04/2024 until 09/04/2025 End: 04-13-2025 DBT Breast - bilateral screening LYNETTE SCREENING W [facility] Radiology Routine Encounter for screening mammogram for breast cancer 1 Occurrences starting 03/14/2024 until 04/13/2025 [facility] Work Phone: Comment on above: 1 Occurrences starti ng 03/14/2024 until 04/13/2025 End: 08-31-2024 Glucose [Mass/volume] in Serum or Plasma POCT Glucose Point of Care Testing STAT One Time for 1 Occurrences starting 08/31/2024 until 08/31/2024 [facility] Comment on above: One Time for 1 Occur rences starting 08/31/2024 until 08/31/2024 End: 09-04-2025 Magnesium [Mass/volume] in Serum or Plasma Magnesium Lab Routine CKD (chronic kidney disease) stage 2, GFR 60-89 ml/min 1 Occurrences starting 09/04/2024 until 09/04/2025 [facility] Comment on above: 1 Occurrences starti ng 09/04/2024 until 09/04/2025 PAP FLUID VAGINAL DIAGNOSTIC PAP FLUID VAGINAL DIAGNOSTIC Lab Routine History of uterine cancer Ordered: 09/02/2021 [facility] Work Phone: Comment on above: Ordered: 09/02/2021 PAP FLUID VAGINAL DIAGNOSTIC PAP FLUID VAGINAL DIAGNOSTIC Lab Routine History of uterine cancer Ordered: 03/10/2022 [facility] Work Phone: Comment on above: Ordered: 03/10/2022 PAP TEST PAP TEST Lab [facility] History of uterine cancer 03/09/2023 9:37 AM EDT [facility] Work Phone: PAP TEST PAP TEST Lab Rou vineet History of uterine cancer Ordered: 03/14/[address] [facility] Comment on above: Ordered: 03/14/2024 End: 09-04-2025 Phosphate [Mass/volume] in Serum or Plasma Phosphorus Lab Routine CKD (chronic kidney disease) stage 2, GFR 60-89 ml/min 1 Occurrences starting 09/04/2024 until 09/04/2025 [facility] Comment on above: 1 Occurrences starti ng 09/04/2024 until 09/04/2025 End: 09-04-2025 Protein creat ratio Protein creat ratio Lab Routine CKD (chronic kidney disease) stage 2, GFR 60-89 ml/min 1 Occurrences starting 09/04/2024 until 09/04/2025 [facility] Work Phone: Comment on above: 1 Occurrences starti ng 09/04/2024 until 09/04/2025 End: 05-25-2024 Urinalysis Urinalysis Lab Routine CKD (chronic kidney disease) stage 2, GFR 60-89 ml/min 1 Occurrences starting 05/25/2023 until 05/25/2024 [facility] Comment on above: 1 Occurrences starti ng 05/25/2023 until 05/25/2024 End: 08-12-2024 Urinalysis Urinalysis Lab Routine CKD (chronic kidney disease) stage 2, GFR 60-89 ml/min 1 Occurrences starting 08/18/2023 until 08/12/2024 [facility] Comment on above: 1 Occurrences starti ng 08/18/2023 until 08/12/2024 End: 09-04-2025 Urinalysis Urinalysis Lab Routine CKD (chronic kidney disease) stage 2, GFR 60-89 ml/min 1 Occurrences starting 09/04/2024 until 09/04/2025 [facility] Comment on above: 1 Occurrences starti ng 09/04/2024 until 09/04/2025 [facility] Immunizations Immunization Date Immunization Notes Care Provider [facility] 03-09-2022 Influenza, injectabl e, Madin Nara Canine Kidney, preservative free, quadrivalent Keyona Singh DPM Work Phone: [facility] 03-09-2022 influenza virus vacc ine, unspecified formulation Harish Spencer PROJECT BUILDER.PUBLIC HEALTH SPECIALIST Work Phone: [facility] 03-13-2021 Moderna SARS-CoV-2 Vaccination Keyona Singh DPM Work Phone: [facility] 02-13-2021 Moderna SARS-CoV-2 Vaccination Keyona Singh DPM Work Phone: [facility] 01-14-2021 pneumococcal polysaccharide vaccine, 23 valent Keyona Singh DPM Work Phone: [facility] 01-14-2021 tetanus toxoid, redu flakita diphtheria toxoid, and acellular pertussis vaccine, adsorbed Keyona Singh DPM Work Phone: [facility] 02-21-2019 Influenza, injectabl e, Madin [place] Canine Kidney, preservative free, quadrivalent Keyona Rusher DPM Work Phone: [facility] 03-07-2018 influenza virus vacc ine, unspecified formulation Harish Spencer PROJECT BUILDER.PUBLIC HEALTH SPECIALIST Work Phone: [facility] 02-23-2018 Influenza, injectabl e, Madin [place] Canine Kidney, preservative free, quadrivalent Keyona Rusher DPM Work Phone: [facility] 04-18-2017 tetanus toxoid, redu flakita diphtheria toxoid, and acellular pertussis vaccine, adsorbed Keyona Rusher DPM Work Phone: [facility] 01-26-2012 influenza, seasonal, injectable Kyeona Rusher DPM Work Phone: [facility] Healthcare Payers Date Payer Category Payer Commercial Managed C are - POS [employer] [id number] 2024 Managed Care HMO (unspecified) [employer] [id number] 2024 Private Health Insurance [id number] 2018 Unknown MMO MMO [employer] [id number] 2018-Present [phone] [address] [place] [address] PPO [id number] 2017 Commercial Managed C are - PPO [employer] [id number] 2017 Unknown [id number] 1964 Unknown [id number] 1964 Unknown [id number] 1964 Unknown [id number] 1964 Unknown [id number] 1964 Unknown [id number] 1964 Unknown [id number] 1964 Unknown [id number] 1959 Unknown [id number] Social History Date Type Detail Facility Start: 03-30-2017 End: 10-02-2024 Tobacco smoking status WYIS Never smoked tobacco [facility] Start: 03-30-2017 End: 10-02-2024 Tobacco use and exposure Smokeless tobacco non-user [facility] Start: 09-02-2021 End: 03-14-2024 Alcohol intake Current non-drinker of alcohol (finding) [facility] Start: 1965 Sex Assigned At Female [facility] Start: 01-05-2021 End: 03-10-2022 Exposure to SARS-CoV-2 (event) Not sure [facility] Start: 12-21-2019 End: 06-25-2020 History of Social function [facility] Start: 12-21-2019 End: 06-25-[address] [facility] Adult Depression Screening Assessment [address] [facility] Start: 12-20-2019 Gender identity Identifies as female gender (finding) [facility] Start: 12-20-2019 Sexual orientation Heterosexual (fin ding) [facility] Tobacco smoking stat us WYIS Tobacco smoking consumption unknown [facility] Start: 1965 Sex assigned at Not on file [facility] Start: 12-17-2014 End: 10-17-2023 Sex Female (finding) [facility] Start: 08-31-2024 End: 11-05-2024 Alcoholic beverage intake Ex-drinker (finding) [facility] Clinical Notes 04-08-2017 to 11-05-2024 Telephone Encounter - Cyn Olmedo - 11/05/2024 3:33 PM EDTTelephone Encounter - Cyn Olmedo - 11/05/2024 3:33 PM EDTSteven Anam SinghLANA - 11/05/2024 9:30 AM EDTPatient Instructions Note Date & Type Note Facility 11-05-2024 Miscellaneous Notes Ksenia, this is Ana Mason and I'm calling about a question if I need to do another routine urinalysis for my upcoming appointment because I've already taken one but my appointment got rescheduled further back and I want to make sure it's in the correct time frame. If you can call me at [phone], I'd appreciate it. Thank you. Patient notified she will need to drop a urine, along with blood draw prior to Jan appt with Dr. Martin documented in this encounter [facility] 11-05-2024 Telephone encounter Note Ksenia this is Ana Mason and I'm calling about a question if I need to do another routine urinalysis for my upcoming appointment because I've already taken one but my appointment got rescheduled further back and I want to make sure it's in the correct time frame. If you can call me at [phone], I'd appreciate it. Thank you. Patient notified she will need to drop a urine, along with blood draw prior to Jan appt with Dr. Martin [facility] 11-05-2024 History of Present illness Narrative Images from the original note were not included. Subjective Patient ID: Ana Mason is a 58 y.o. female who presents [...] to improve. Residual symptoms appear to be located primarily about the posterior joint line. Denies locking or catching sensation. Denies sensation of weakness or instability. Medications Current Outpatient Medications: lisinopril [...] Mother Meme Samano Cancer Maternal Grandfather Marty verma Objective General assessment: Alert and oriented. Pleasant [...] and lateral collateral structures are non-tender. The anterior joint line is non-tender. Unremarkable for joint effusion. [...] or corrected. Thank you for your understanding. Keyona Singh DPM documented in this encounter [facility] 11-05-2024 Instructions Keyona Singh DPM - 11/05/2024 9:30 AM EDT As noted documented in this encounter [facility] 10-02-2024 History of Present illness Narrative Images from the original note were not included. Subjective Patient ID: Ana Mason is a 58 y.o. female who presents for Ankle Pain (Pt is here today for Lt ankle pain, started about 1mo ago, NKI. She was working, got up from her desk and was in a lot of pain suddenly, hard to walk. Then improved, then last week flared up again, now its a dull ache/BS: 120 A1C: 5.7/LV Beryl Montano 08-02-2024/SS: 7XW). HPI Initial patient encounter and assessment. Chief complaint: Left ankle pain of several weeks duration. Sub-acute onset upon arising from a sitting position, without prodromal symptoms. Denies any precipitating injury or trauma. Identifies the area of the PT tendon about the medial malleolus. Denies pop or snap sensation. Patient has noted no obvious swelling or discoloration. Denies dysesthesias or radicular pain. She does relate an increase in exercise activity, particularly stair walking over the past month or so. She does note slight relief over the past several weeks with activity modification; there is otherwise been no specific treatment. Right foot and ankle are symptom free. Patient does relate a history of fracture of the left foot or ankle circa 1984; treated with immobilization. Medications Current Outpatient Medications: lisinopril 5 MG tablet, Take by mouth Daily, Disp: , Rfl: Allergies Dust mite extract, Molds & smuts, [...] Relation Name Age of Onset Aneurysm Mother Stroke Mother Cancer Maternal Grandfather colon Objective General assessment: Alert and oriented. Pleasant disposition. Independently ambulatory, wearing ortho feet footwear. Vascular: DP 2/4 bilateral. PT 1/4 bilateral. [...] click, without guarding or obvious joint crepitus. Lesion pattern: No forefoot or digital discrete keratotic lesions are noted. Stance assessment: Symmetrical, mildly pronated foot type. Radiology: RADIOGRAPHS: 3 views left ankle: Weight-bearing: AP, mortise, lateral: 0 10/02/2024: Unremarkable for acute osseous or joint pathology. Unremarkable for fracture or stress fracture changes. Fairly extensive degenerative arthritic changes of the posterior subtalar joint facet; with what appears to be a prominent evans's fracture fragment posteriorly. Minimal arthritic changes of the tibial-talar joint. Assessment/Plan Tibialis posterior tendonitis left. Post-traumatic arthrosis subtalar joint left. Plan: Review of clinical and x-ray findings, differential diagnosis, etiology and contributing/aggravating factors, treatment strategy, rationale and objectives. Rx: Prednisone taper dose. Sizing and fitting of Powerstep orthoses. Discussed appropriate supportive footwear; referred for fitting. Discussed use of elastic compression sleeve as needed. Procedure: This note was created with the assistance of a speech recognition program. While intending to generate a timely document that accurately reflects the content of the visit, no guarantee can be provided that every grammatical or spelling mistake has been or will be identified or corrected. Thank you for your understanding. Keyona Singh DPM documented in this encounter [facility] 10-02-2024 Instructions Keyona Singh DPM - 10/02/2024 8:45 AM EDT As noted documented in this encounter [facility] 09-20-2024 Note [facility] Note Reason for cardiology visit: Follow-up Chief Complaint: Dyspnea on exertion HPI: 09/20/2024 07/19/2024 Ana Mason is a 58 y.o. female without prior cardiac history. She has history of hypertension, hyperlipidemia, type 2 diabetes mellitus, morbid obesity, obstructive sleep apnea on CPAP, and history of chronic kidney disease follows with [facility], exercise-induced asthma, and history of endometrial cancer s/p hysterectomy and oophorectomy. Also she reports that she was told in [facility] in 2020 that she had mild dilatation of the ascending aorta however she had cardiac MRI and MRA which were normal As preop evaluation she had an EKG which came back abnormal showing possibility of prior anterior infarct. Patient does not report any chest discomfort at rest or with exertion however she reports exertional dyspnea particularly if she walks a little fast or if she climbs 1 flight of stairs. She denies orthopnea or paroxysmal nocturnal dyspnea. She wears CPAP during the night for obstructive sleep apnea. She denies dizziness or palpitations. She reports occasional lower extremities edema when she is up on her feet a lot. She denies legs discomfort with exertion She reports that she checks his blood pressure at home and it is usually normal She never been a smoker. She denies alcohol or illicit drugs Regarding family history her mother due to thoracic aortic aneurysm. Her cousin had CO at his 60s and he had a pacemaker however he was a heavy smoker. Review of Systems Constitutional: Negative for chills and fever. Cardiovascular: Positive for dyspnea on exertion. Negative for chest pain, leg swelling, near-syncope, palpitations and syncope. Respiratory: Positive for sleep disturbances due to breathing. Negative for cough and shortness of breath. Musculoskeletal: Negative for falls. Psychiatric/Behavioral: Negative for depression and suicidal ideas. Past Medical History She has a past medical history of Abnormal ECG, Chronic kidney disease, Diabetes mellitus (CMS/HCC), Hyperlipidemia, Hypertension, Hypothyroidism, Sleep apnea, Thoracic aortic aneurysm, and Uterine cancer (CMS/HCC). Surgical History She has a past surgical history that includes Hysterectomy. Social History She reports that she has never smoked. She has never been exposed to tobacco smoke. She has never used smokeless tobacco. She reports that she does not drink alcohol and does not use drugs. Family History Family History Problem Relation Name Age of Onset Obesity Mother Meme Stroke Mother Meme Sudden Mother Meme Cancer Maternal Grandfather Marty Carrillo Cancer Mother's Brother Yann Allergies Sulfadiazine, Penicillins, and Sulfanilamide Medications Current Outpatient Medications: aspirin 81 mg chewable tablet, Chew 81 mg in the morning., Disp: , Rfl: cholecalciferol (Vitamin D-3) 125 MCG (5000 UT) capsule, Take 5,000 Units by mouth in the morning., Disp: , Rfl: lisinopril 5 mg tablet, Take 5 mg by mouth in the morning., Disp: , Rfl: rosuvastatin (Crestor) 20 mg tablet, Take 20 mg by mouth at bedtime. She takes it once every 2 to 3 days, Disp: , Rfl: Last Recorded Vitals Visit Vitals BP 110/72 (BP Location: Left arm, Patient Position: Standing, BP Cuff Size: Large adult) Pulse 82 Ht 1.549 m (5' 1 ) Wt 119 kg (263 lb) BMI 49.69 kg/m??? Smoking Status Never BSA 2.26 m??? In sitting position blood pressure 142/81, heart rate 55 Physical Examination: GENERAL: alert and oriented x3, well developed, in no acute distress. HEAD: atraumatic, normocephalic. EYES: CONNIE, EOMI. NECK: trachea midline, no JVD present, no carotid bruits present. CARDIAC: S1, S2 present. RRR. No murmur, rubs, or gallops. RESPIRATORY: CTAB, no increased effort of breathing, no rales, rhonchi, or wheezing. ABDOMEN: soft, nontender, nondistended. EXTREMITIES: no lower extremity edema, peripheral pulses are 2+ bilaterally. No rash/skin discoloration present. NEURO: strength/sensation equal and symmetric in bilateral upper and lower extremities. PSYCH: appropriate mood, affect, and judgement. Labs: Lab Results Component Value Date CHOL 213 (H) 09/11/2024 Lab Results Component Value Date HDL 42 09/11/2024 Lab Results Component Value Date LDLCALC 126 09/11/2024 Lab Results Component Value Date TRIG 227 (H) 09/11/2024 Lab Results Component Value Date ALT 17 09/11/2024 AST 15 09/11/2024 Lab Results Component Value Date TSH 1.58 09/11/2024 Lab Results Component Value Date HGBA1C 5.9 09/11/2024 No components found for: CHOLHDL 07/10/2024 Sodium 137, potassium 4.6, glucose 182, BUN 24, creatinine 1.1, GFR 60 White blood count 7.7, hemoglobin 14.1, hematocrit 42.7, platelets 253 No lipids or thyroid function noted in her chart Last Images: EKG 06/20/2024 showed (more content not included)... [facility] 09-12-2024 Miscellaneous Notes Left message for patient telling her to go to the lab due to patient not having any labs done for appointment that was move from 09/12 to 09/13 documented in this encounter [facility] 09-12-2024 Telephone encounter Note Left message for patient telling her to go to the lab due to patient not having any labs done for appointment that was move from 09/12 to 09/13 [facility] 08-31-2024 History of Present illness Narrative Discharge Criteria Inpatients must meet Criteria 1 through 7. All other patients are either YES or N/A. If a NO is chosen then Anesthesia or Surgeon must be notified. 1. Minimum 30 minutes after last dose of sedative medication. Yes 2. Systolic BP between 90 - 160. Diastolic BP between 60 - 90. No-ENROBER aware 3. Pulse between 60 - 120 No-ENROBER aware, states patient is okay to be discharged. 4. Respirations between 8 - 25. Yes 5. SpO2 92% - 100%. Yes 6. Able to cough and swallow or return to baseline function. Yes 7. Alert and oriented or return to baseline mental status. Yes 8. Demonstrates controlled, coordinated movements, ambulates with steady gait, or return to baseline activity function. Yes 9. Minimal or no pain or nausea, or at a level tolerable and acceptable to patient. Yes 10. Takes and retains oral fluids as allowed. Yes 11. Procedural / perioperative site stable. Minimal or no bleeding. Yes 12. If GI endoscopy procedure, minimal or no abdominal distention or passing flatus. Yes 13. Written discharge instructions and emergency telephone number provided. Yes 14. Accompanied by a responsible adult. [id number] Patient states they received their colon prep instructions and home medications that are to be taken on the day of their procedure with a small sip of water only, from the physician's office. Patient will follow prescribing physicians instructions regarding aspirin before her procedure. Patient will take her lisinopril the eveing before her procedure. Attempted PAT phone call; no answer; message left to return PAT phone call. documented in this encounter [facility] 08-31-2024 Hospital Discharge instructions Woody Calvo RN - 08/31/2024 9:15 AM EDT SAME DAY SURGERY DISCHARGE INSTRUCTIONS 1. Do not drive or operate hazardous machinery for 24 hours. 2. Do not make important personal or business decisions for 24 hours. 3. Do not drink alcoholic beverages for 24 hours. 4. Do not smoke tobacco products for 24 hours. 5. Eat light foods (Jell-O, soups, etc....) and drink plenty of fluids (water, Sprite, etc...) up to 8 glasses per day, as you can tolerate. 6. Limit your activities for 24 hours. Do not engage in heavy work until your surgeon gives you permission. 7. Call your surgeon for any questions regarding your surgery. 8. Patient should not be left alone for 12-24 hours following surgical procedure. COLONOSCOPY DISCHARGE INSTRUCTIONS: It's normal to have a feeling of fullness or mild cramping in your abdomen afterwards due to air that is put into your bowel during the procedure. Mild activities such as walking will help you pass the air. You may resume your regular diet. You will receive a letter or phone call with your test results in 2 weeks. If you have not received a letter or a phone call in 2 weeks please call the office for your results. 1) Your colon is long and tortuous, but we were able to get all the way around today. It was very challenging to do so. 2) Your colon looks good. 3) You family history is not a typical family history risk factor. But as you have multigenerational colon cancer and your mother at a relatively early age, it is reasonable to consider you of increased risk and repeat a colonoscopy in 5 years. There are a couple other things you may want to consider. - Do you happen to know if your uncle and/or cousin has had genetic counseling or testing done? - You may want to consider genetic counseling. The oncology department through [facility] has an excellent genetic counselor. 4) Follow up with me as desired. Discharge Instructions for Colonoscopy Colonoscopy is a visual exam of the lining of the large intestine, also called the bowel or colon, with a colonoscope. A colonoscope is a flexible tube with a light and a viewing device. It allows the doctor to view the inside of the colon through a tiny video camera. Colonoscopy is performed for many reasons: unexplained anemia , pain, diarrhea , bloody stools, cancer screening, among many other reasons. Complications from a colonoscopy are rare. Some possible serious complications include perforated bowel (which might require surgery) and bleeding (which could require blood transfusion ). Minor complications include bloating, gas, and cramping that can last for 1-2 days after the procedure. Because air is put into your colon during the procedure, it is normal to pass large amounts of air from your rectum. You may not have a bowel movement for 1-3 days after the procedure. What You Will Need Someone to drive you home after the procedure Steps to Take Home Care Rest when you get home. Because the sedative will make you drowsy, don't drive, operate machinery, or make important decisions the day of the procedure. Feelings of bloating, gas, or cramping may persist for 24 hours. Diet Try sips of water first. If tolerated, resume regular diet or the diet recommended by your physician. Do not drink alcohol for 24 hours. Physical Activity You may return to work tomorrow. Do not drive, operate heavy machinery, or do activities that require coordination or balance until tomorrow Otherwise, return to your normal routine as soon as you are comfortable to do so, which is usually the next day after the procedure. Medications When taking medications, it's important to: Take your medication as directednot more, not less, not at a different time. Do not stop taking them without consulting your healthcare provider. Don't share them with anyone else. Know what effects and side effects to expect, and report them to your healthcare provider. If you are taking more than one drug, even if it is an [id number] medication, herb, or dietary supplement, be sure to check with a physician or pharmacist about drug interactions. Plan ahead for refills so you don't run out. Follow-up You will be called with your results usually within a week or We will have you make a follow up appointment You are always welcome to follow up in person if you have questions or there are other issue you would like addressed Call Your Doctor If Any of the Following Occurs Monitor your recovery once you leave the hospital. As soon as you have a problem, alert your doctor. If any of the following occur, call your doctor or come to the emergency room Bleeding from your rectum; notify your doctor if you pass a teaspoonful or more of blood Black, tarry stools Severe abdominal pain Hard, swollen abdomen Signs of infection, including fever or chills Inability to pass gas or stool Coughing, shortness of breath, chest pain, severe nausea or vomiting In case of an emergency, call 911 immediately. documented in this encounter [facility] 07-19-2024 Note [facility] Note Reason for cardiology consult: Preop clearance for colonoscopy due to abnormal EKG Chief Complaint: Dyspnea on exertion HPI: Ana Mason is a 58 y.o. female without prior cardiac history. She has history of hypertension, hyperlipidemia, type 2 diabetes mellitus, morbid obesity, obstructive sleep apnea on CPAP, and history of chronic kidney disease follows with nephrology consultants [facility], exercise-induced asthma, and history of endometrial cancer s/p hysterectomy and oophorectomy. Also she reports that she was told in [facility] in 2020 that she had mild dilatation of the ascending aorta however she had cardiac MRI and MRA which were normal As preop evaluation she had an EKG which came back abnormal showing possibility of prior anterior infarct. Patient does not report any chest discomfort at rest or with exertion however she reports exertional dyspnea particularly if she walks a little fast or if she climbs 1 flight of stairs. She denies orthopnea or paroxysmal nocturnal dyspnea. She wears CPAP during the night for obstructive sleep apnea. She denies dizziness or palpitations. She reports occasional lower extremities edema when she is up on her feet a lot. She denies legs discomfort with exertion She reports that she checks his blood pressure at home and it is usually normal She never been a smoker. She denies alcohol or illicit drugs Regarding family history her mother due to thoracic aortic aneurysm. Her cousin had CO at his 60s and he had a pacemaker however he was a heavy smoker. Cardiology ROS: GENERAL: Denies fever, chills, night sweats, weight loss. HEENT: Denies changes in vision, photophobia, changes in hearing, epistaxis, oral bleeding. CARDIOVASCULAR: She reports exertional dyspnea and occasional edema as described above. Denies chest pain, orthopnea/PND, palpitations, lightheadedness/dizziness. RESPIRATORY: Denies SOB, coughing, wheezing GI: Denies abdominal pain, nausea/vomiting, heartburn, melena/hematochezia. RENAL: Denies dysuria, hematuria, flank pain. MSK: Denies muscle weakness/pain, arthralgias/joint pain. NEUROLOGIC: Denies LOC, weakness, numbness, headaches. SKIN: Denies abnormal rashes or bleeding. PSYCH: Denies significant anxiety, depression, sleep disturbances. Past Medical History She has a past medical history of Chronic kidney disease, Hypertension, Thoracic aortic aneurysm, and Uterine cancer ([facility]/HCC). Surgical History She has a past surgical history that includes Hysterectomy. Social History She has no history on file for tobacco use, alcohol use, and drug use. Family History No family history on file. Allergies Sulfadiazine, Penicillins, and Sulfanilamide Medications No current outpatient medications on file. Last Recorded Vitals Visit Vitals BP 133/79 (BP Location: Left arm, Patient Position: Standing, BP Cuff Size: Adult long) Pulse 74 Ht 1.549 m (5' 1 ) Wt 116 kg (255 lb) BMI 48.18 kg/m??? Smoking Status Never BSA 2.23 m??? In sitting position blood pressure 142/81, heart rate 55 Physical Examination: GENERAL: alert and oriented x3, well developed, in no acute distress. HEAD: atraumatic, normocephalic. EYES: CONNIE, EOMI. NECK: trachea midline, no JVD present, no carotid bruits present. CARDIAC: S1, S2 present. RRR. No murmur, rubs, or gallops. RESPIRATORY: CTAB, no increased effort of breathing, no rales, rhonchi, or wheezing. ABDOMEN: soft, nontender, nondistended. EXTREMITIES: no lower extremity edema, peripheral pulses are 2+ bilaterally. No rash/skin discoloration present. NEURO: strength/sensation equal and symmetric in bilateral upper and lower extremities. PSYCH: appropriate mood, affect, and judgement. Labs: 07/10/2024 Sodium 137, potassium 4.6, glucose 182, BUN 24, creatinine 1.1, GFR 60 White blood count 7.7, hemoglobin 14.1, hematocrit 42.7, platelets 253 No lipids or thyroid function noted in her chart Last Images: EKG 06/20/2024 showed sinus bradycardia, possible old anterior infarct, no significant T or ST change EKG 03/09/2021 showed sinus rhythm, late transition, no T or ST changes Assessment and Plan: Preop clearance for colonoscopy due to abnormal EKG Abnormal EKG showing possibility of old anterior CO Dyspnea on exertion Hypertension, on lisinopril, blood pressure elevated today however she reports is normal at home Hyperlipidemia, on Crestor Type 2 diabetes mellitus Obesity, BMI 48.2 kg/m??? Obstructive sleep apnea on CPAP Chronic kidney disease Exercise-induced asthma Endometrial cancer, status post hysterectomy and oophorectomy Plan: Continue current medications including lisinopril and Crestor I will obtain an echocardiographic study to evaluate cardiac and valvular function. If normal I will clear her for colonoscopy. I asked the patient to check her blood pressure twice (more content not included)... [facility] 07-11-2024 Miscellaneous Notes LM to schedule f/u appt with [facility] in [place] per pt request via her [employer]. Pt called back to get scheduled. Due to limited availability in our [place] office, the pt was willing to come to our [place] office. Pt scheduled for next availability: 09/12/24 with MD Harris [facility] Telephone encounter Note LM to schedule f/u appt with [facility] in [place] per pt request via her [employer]. [facility]24 Telephone encounter Note Pt called back to get scheduled. Due to limited availability in our [place] office, the pt was willing to come to our [place] office. Pt scheduled for next availability: 09/12/24 with MD Harris [facility] 03-14-2024 Note HNO ID: [id number] Author: HARISH SPENCER APRN.PUBLIC HEALTH SPECIALIST Service: ? Author Type: Nurse Practitioner Type: Progress Notes Filed: 03/14/2024 09:58 Note Text: DATE OF SERVICE:03/14/2024 PROBLEM: Ana Mason presents for follow up visit. DIAGNOSIS: IA grade 1 endometrial cancer SURGERY AND DATE: 04/28/2017 Laparoscopic total hysterectomy, bilateral salpingo-oophorectomy, cystoscopy PATHOLOGY: FINAL DIAGNOSIS 1. Uterus and cervix, hysterectomy: Cervix - Chronic cervicitis and squamous metaplasia. - Negative for neoplasm. Endometrium - Well differentiated adenocarcinoma, endometrioid cell type with mucinous differentiation, FIGO grade 1. - Atypical endometrial hyperplasia. Myometrium - Superficial invasion by endometrioid adenocarcinoma (2 mm depth of invasion/ 19 mm myometrial thickness; 10.5% myoinvasion). - Adenomyosis. Serosa - No significant pathologic findings. 2. Right fallopian tube, excision - Serosal adhesions. - Negative for neoplasm. 3. Right ovary, excision - Stromal hyperthecosis. - Fibrous cortical adhesions with hemosiderin-laden macrophages. - Negative for neoplasm. 4. Left fallopian tube, excision - No significant pathologic findings. - Negative for neoplasm. 5. Left ovary, excision - Benign cyst, most consistent with a benign follicle cyst. - Stromal hyperthecosis. - Fibrous cortical adhesions. - Negative for neoplasm. SYNOPTIC REPORT OF [facility] PATHOLOGIC FINDINGS UTERUS AND CERVIX WITH BILATERAL OVARIES AND FALLOPIAN TUBES: Specimen: Uterine corpus Cervix Right ovary Left ovary Right fallopian tube Left fallopian tube Procedure: Simple hysterectomy Bilateral salpingo-oophorectomy Lymph Node Sampling: Not performed Specimen Integrity: Intact hysterectomy specimen Histologic Type: Endometrioid adenocarcinoma Histologic Grade: FIGO grade 1 Myometrial Invasion: Present Depth of invasion: 2 mm Myometrial thickness: 19 mm Tumor Involvement of Cervix: Not involved Other Organs Submitted: Right ovary not involved Left ovary not involved Right fallopian tube not involved Left fallopian tube not involved Lymph-Vascular Invasion: Not identified TNM Descriptors: Not applicable Primary Tumor (pT): pT1a (IA): Tumor limited to endometrium or invades less than 1/2 of the myometrium Regional Lymph Nodes (pN): pNX: Regional lymph nodes cannot be assessed No pelvic nodes submitted or found No para-aortic nodes submitted or found No other lymph nodes submitted or found Distant Metastasis (pM): Not applicable Advertising Agency Manager Tumor block: Specify: A4 SUBJECTIVE/INTERVAL HISTORY: Ana Mason reports that she feels well. No fever or chills. No acute shortness of breath, cough, or chest pain. No abdominal pain, nausea, vomiting,. No dysuria, gross hematuria, urinary frequency, urinary urgency. No vaginal bleeding or discharge. Getting mammogram @[facility] Continues to loose weight w diet AND exercise! Alternating diarrhea/constipation Colonoscopy scheduled OBJECTIVE: VITALS: BP 131/84 Pulse (!) 55 Resp 18 Wt 115.5 kg (254 lb 10.1 oz) SpO2 97% BMI 48.11 kg/m? GENERAL: She is alert, oriented, pleasant and cooperative. No acute distress HEENT: Normocephalic, atraumatic, NECK: Supple, no adenopathy LUNGS: Clear to auscultation bilaterally. HEART: Regular rate and rhythm, no murmurs. ABDOMEN: Abdomen soft, non-tender, non distended PELVIC: External genitalia, anus and urethral meatus are normal in appearance and without lesions. Vagina and cuff are normal in appearance on speculum examination. Bimanual examination normal. Pap obtained. LOWER EXTREMITIES: normal Project/Production Manager Imaging offered: Patient declines. The sensitive examination was discussed with the Patient or Patient's Authorized Advertising Agency Manager. As applicable, any other physician, advance practice provider, medical student, or other health professional student that will be observing or involved in the sensitive examination for educational or training purposes was discussed with the Patient or Authorized Advertising Agency Manager. The Patient or Authorized Advertising Agency Manager has agreed to proceed with the sensitive examination. (Sensitive examination includes inspection and/or palpation of the breasts, pelvis, prostate and anorectal regions) ASSESSMENT: Ana Mason is a 58 year old women with history of stage IA grade 1 endometrial cancer, no martha-invasion, no LVSI 04/2017 PLAN: - patient doing well, clinically no evidence of disease - Follow-up Pap - Health maintenance; mammogram due she will get this at [place] - Return to clinic in 12 months, sooner as needed for issues concerns Harish Spencer APRN.MADYSON I spent a total of 20 minutes on the date of the service which included preparing to see the patient, [id number] patient care, completing clinical (more content not included)... [facility] 03-14-2024 History of Present illness Narrative DATE OF SERVICE:03/14/2024 PROBLEM: Ana Mason presents for follow up visit. DIAGNOSIS: IA grade 1 endometrial cancer SURGERY & DATE: 04/28/2017 Laparoscopic total hysterectomy, bilateral salpingo-oophorectomy, cystoscopy PATHOLOGY: FINAL DIAGNOSIS 1. Uterus and cervix, hysterectomy: Cervix - Chronic cervicitis and squamous metaplasia. - Negative for neoplasm. Endometrium - Well differentiated adenocarcinoma, endometrioid cell type with mucinous differentiation, FIGO grade 1. - Atypical endometrial hyperplasia. Myometrium - Superficial invasion by endometrioid adenocarcinoma (2 mm depth of invasion/ 19 mm myometrial thickness; 10.5% myoinvasion). - Adenomyosis. Serosa - No significant pathologic findings. 2. Right fallopian tube, excision - Serosal adhesions. - Negative for neoplasm. 3. Right ovary, excision - Stromal hyperthecosis. - Fibrous cortical adhesions with hemosiderin-laden macrophages. - Negative for neoplasm. 4. Left fallopian tube, excision - No significant pathologic findings. - Negative for neoplasm. 5. Left ovary, excision - Benign cyst, most consistent with a benign follicle cyst. - Stromal hyperthecosis. - Fibrous cortical adhesions. - Negative for neoplasm. SYNOPTIC REPORT OF [facility] PATHOLOGIC FINDINGS UTERUS AND CERVIX WITH BILATERAL OVARIES AND FALLOPIAN TUBES: Specimen: Uterine corpus Cervix Right ovary Left ovary Right fallopian tube Left fallopian tube Procedure: Simple hysterectomy Bilateral salpingo-oophorectomy Lymph Node Sampling: Not performed Specimen Integrity: Intact hysterectomy specimen Histologic Type: Endometrioid adenocarcinoma Histologic Grade: FIGO grade 1 Myometrial Invasion: Present Depth of invasion: 2 mm Myometrial thickness: 19 mm Tumor Involvement of Cervix: Not involved Other Organs Submitted: Right ovary not involved Left ovary not involved Right fallopian tube not involved Left fallopian tube not involved Lymph-Vascular Invasion: Not identified TNM Descriptors: Not applicable Primary Tumor (pT): pT1a (IA): Tumor limited to endometrium or invades less than 1/2 of the myometrium Regional Lymph Nodes (pN): pNX: Regional lymph nodes cannot be assessed No pelvic nodes submitted or found No para-aortic nodes submitted or found No other lymph nodes submitted or found Distant Metastasis (pM): Not applicable Advertising Agency Manager Tumor block: Specify: A4 SUBJECTIVE/INTERVAL HISTORY: Ana Mason reports that she feels well. No fever or chills. No acute shortness of breath, cough, or chest pain. No abdominal pain, nausea, vomiting,. No dysuria, gross hematuria, urinary frequency, urinary urgency. No vaginal bleeding or discharge. Getting mammogram @[facility] Continues to loose weight w diet & exercise! Alternating diarrhea/constipation Colonoscopy scheduled OBJECTIVE: VITALS: BP 131/84 Pulse (!) 55 Resp 18 Wt 115.5 kg (254 lb 10.1 oz) SpO2 97% BMI 48.11 kg/m GENERAL: She is alert, oriented, pleasant and cooperative. No acute distress HEENT: Normocephalic, atraumatic, NECK: Supple, no adenopathy LUNGS: Clear to auscultation bilaterally. HEART: Regular rate and rhythm, no murmurs. ABDOMEN: Abdomen soft, non-tender, non distended PELVIC: External genitalia, anus and urethral meatus are normal in appearance and without lesions. Vagina and cuff are normal in appearance on speculum examination. Bimanual examination normal. Pap obtained. LOWER EXTREMITIES: normal Project/Production Manager Imaging offered: Patient declines. The sensitive examination was discussed with the Patient or Patient's Authorized Advertising Agency Manager. As applicable, any other physician, advance practice provider, medical student, or other health professional student that will be observing or involved in the sensitive examination for educational or training purposes was discussed with the Patient or Authorized Advertising Agency Manager. The Patient or Authorized Advertising Agency Manager has agreed to proceed with the sensitive examination. (Sensitive examination includes inspection and/or palpation of the breasts, pelvis, prostate and anorectal regions) ASSESSMENT: Ana Mason is a 58 year old women with history of stage IA grade 1 endometrial cancer, no martha-invasion, no LVSI 04/2017 PLAN: - patient doing well, clinically no evidence of disease - Follow-up Pap - Health maintenance; mammogram due she will get this at [facility] - Return to clinic in 12 months, sooner as needed for issues concerns Harish Spencer APRN.MADYSON I spent a total of 20 minutes on the date of the service which included preparing to see the patient, [id number] patient care, completing clinical documentation, performing a medically appropriate examination, and ordering medications, tests, or procedures. All documentation from previous visit of 03/09/2023 was copied and pasted, documentation has been reviewed and edited as necessary for today's visit. documented in this encounter [facility] 08-18-2023 History of Present illness Narrative Images from the original note were not included. Date of Service: 08/18/23 PCP: JOSELO Montero History of Present Illness Ana Mason is a 57 y.o. female, with stage IIIA chronic kidney disease returning for nephrologic follow-up Laboratories on July 20 2022 sodium 137 potassium 4.5 chloride 97 total CO2 27 BUN 17 creatinine 1.01 EGFR 65 mL/min hemoglobin 14 hematocrit 41.6 platelet count 270 phosphorus 4.4 magnesium 1.9 intact PTH was 23 pg/mL 25 hydroxy vitamin-D was 34 ng/mL urine protein creatinine ratio was 0.11 grams/gram. Urinalysis showed the absence of protein or blood on dipstick exam there were 5-10 white blood cells and 0-2 red blood cells per high-power field. Laboratories of August 10, 2023 show a BUN of 22 creatinine 1.27 sodium 139 potassium 4.5 chloride 102 total CO2 26 phosphorus 4.2 magnesium 2.2 urine protein creatinine ratio was 0.27 grams/gram. Urinalysis showed the absence of protein on dipstick exam microscopic exam the urinary sediment showed 0-2 red blood cells and 5-10 white blood cells per high-power field. She returns for follow-up feeling well and voicing no complaints. She denies lower extremity edema. She was recently diagnosed with diabetes. She is placed herself on a diet. She is lost weight in her hemoglobin A1c has been improving most recently to about 5.6%. Problem List 1. Stage 2 chronic kidney disease. Previous nephrologic investigations included, on February 09, 2021 sodium was 138 potassium 4.2 chloride 100 total CO2 30 BUN 16 creatinine 1.17 EGFR was 48 mL/min/ A serum protein electrophoresis with immunofixation revealed no evidence of a monoclonal protein disorder. An CLAUDINE screen was negative. Complement C3 and C4 were normal 37744 mg/dL, respectively. Anti double-stranded DNA antibody titer was negative anti myeloperoxidase and anti proteinase 3 antibody titers were negative. Anti glomerular basement membrane antibody titers were negative the free kappa lambda ratio was normal 1.64. Hepatitis serologies were unremarkable; her hepatitis B surface antibody was positive reflecting a immunized status. Urinalysis was unremarkable on dipstick and microscopic exam of the urinary sediment. Urine protein creatinine ratio was 0.12 gram/gram. 2. Hyperlipidemia 3. Gastroesophageal reflux disease 4. Obstructive sleep apnea 5. Asthma 6. History of endometrial cancer 7. History of tonsillectomy and adenoidectomy, section, tubal ligation, 8. Obesity 9.Type 2 Diabetes mellitus HgB A1c 5.6% Surgical, Family & Social History Surgical History: Past Surgical History: Procedure Laterality Date HYSTERECTOMY 2017 OOPHORECTOMY 2017 Social History: Social History Socioeconomic History Marital status: Spouse name: Not on file Number of children: Not on file Years of education: Not on file Highest education level: Not on file Occupational History Not on file Tobacco Use Smoking status: Not on file Smokeless tobacco: Not on file Substance and Sexual Activity Alcohol use: Not on file Drug use: Not on file Sexual activity: Not on file Other Topics Concern Not on file Social History Narrative Not on file Social Determinants of Health Financial Resource Strain: Not on file Food Insecurity: Not on file Transportation Needs: Not on file Physical Activity: Not on file Stress: Not on file Social Connections: Not on file Interpersonal Safety: Not on file Housing Instability: Not on file Family History: No family history on file. Allergies & Medications Allergies: Allergies Allergen Reactions Penicillins Rash Sulfanilamide Rash Current Meds: Current Outpatient Medications Medication Sig Dispense Refill aspirin 81 mg Take 1 tablet (81 mg total) by mouth in the morning. lisinopriL (PRINIVIL,ZESTRIL) 5 mg tablet Take 1 tablet (5 mg total) by mouth in the morning. 90 tablet 0 rosuvastatin (CRESTOR) 20 mg tablet Take 1 tablet (20 mg total) by mouth in the morning. cholecalciferol (VITAMIN D3) 5,000 units capsule Take 1 capsule (5,000 Units total) by mouth in the morning. (Patient not taking: Reported on 08/18/2023) 90 capsule 3 gabapentin (NEURONTIN) 300 mg capsule Take 1 capsule (300 mg total) by mouth 3 (three) times a day. Patient do as needed (Patient not taking: Reported on 08/18/2023) No current facility-administered medications for this visit. Review of Systems Review of Systems Physical Exam Vital Signs: Vitals: 08/18/23 1413 08/18/23 1415 BP: 122/77 131/75 BP Site: Right Arm Right Arm BP Postition: Sitting Standing BP CUFF SIZE: M (9-13 inches) M (9-13 inches) Pulse: 64 83 SpO2: 95% Weight: 115.7 kg (255 lb) 115.7 kg (255 lb) BMI: Body mass index is 48.18 kg/m . General appearance: alert in no apparent distress. Psychiatric: Oriented to place, time and person HEENT: atraumatic, supple, moist oral mucosa, no JVD Cardiovascular: normal S1-S2 Respiratory: No respiratory distress with no use of accessory muscles. Clear to auscultation bilaterally with no wheezes or crackles Abdomen: soft, no tenderness, no guarding, positive bowel sounds and no hepato or splenomegaly Vascular: adequate pulses and no carotid bruits. Musculoskeletal: no joint swelling or tenderness. Neurologic: No focal deficit in upper or lower extremities Lymphatic: no cervical or axillary lymphadenopathy. Edema: Laboratory Studies Chemistry: Lab Results Component Value Date SODIUM 138 10/01/2021 SODIUM 138 02/09/2021 K 4.4 10/01/2021 K 4.2 02/09/2021 CL 102 10/01/2021 CL 100 02/09/2021 CO2 27 10/01/2021 CO2 30 02/09/2021 ANIONGAP 9 10/01/2021 ANIONGAP 8 02/09/2021 BUN 24 (H) 10/01/2021 BUN 16 02/09/2021 CREATININE 1.06 (H) 10/01/2021 CREATININE 1.17 (H) 02/09/2021 CALCIUM 9.0 10/01/2021 CALCIUM 9.7 02/09/2021 MG 2.0 10/01/2021 PHOSPHORUS 3.9 10/01/2021 Lab Results Component Value Date TOTALPROTEI 7.3 02/09/2021 ALBUMIN 4.2 02/09/2021 BILIRUBIN Negative 10/01/2021 BILIRUBIN Negative 02/09/2021 Hematology: Lab Results Component Value Date WBC 7.4 10/01/2021 HGB 12.8 10/01/2021 HCT 37.7 10/01/2021 PLT 236 10/01/2021 Anemia Studies: No results found for: IRONSAT , FERRITIN , [id number] , FOLATE Mineral and Bone Labs: Lab Results Component Value Date CALCIUM 9.0 10/01/2021 CALCIUM 9.7 02/09/2021 PHOSPHORUS 3.9 10/01/2021 VITD25 8.2 (L) 10/01/2021 PTH 87 10/01/2021 Urine Studies: Lab Results Component Value Date COLOR YELLOW 10/01/2021 TURBIDITY HAZY (A) 10/01/2021 SPECIFICGRA 1.011 10/01/2021 NITRITE Negative 10/01/2021 PHURINE 6.0 10/01/2021 LEUKOCYTE Large (A) 10/01/2021 PROTEIN Negative 10/01/2021 KETONES Negative 10/01/2021 UROBILINOGEN <1.1 10/01/2021 BLOODHGB Negative 10/01/2021 Lab Results Component Value Date UPROCRTRAT 0.14 10/01/2021 UPROCRTRAT 0.12 02/09/2021 Immunology Profile Lab Results Component Value Date PROTELECTR 02/09/2021 Unremarkable protein distribution, no monoclonal bands. ANASCREEN Negative 02/09/2021 C3 171 02/09/2021 C4 41 02/09/2021 MYELOP <0.2 02/09/2021 PROTEINASE3 <0.2 02/09/2021 ANTIGLOMERU <0.2 02/09/2021 No results found for: HAV , HEPAIGM , HEPBIGM , HEPBCAB , HBEAG , HEPCAB Imaging Echocardiogram: No results found. IMPRESSION 1. Stage 2 chronic kidney disease: Her chronic kidney disease has been attributed to nephrosclerosis or renal vascular disease. All of her serologies were unremarkable for a vasculitis or glomerulonephritis. PLAN 1. Target systolic blood pressure to less than 130 mm of mercury. 2. Avoid prolonged use of nonsteroidal anti-inflammatory drugs or proton pump inhibitors 3. Continue the JEFERSON inhibitor lisinopril for renal protection and protein sparing. I may wish to titrate this medication in the future depending on her blood pressure, creatinine and proteinuria. 4. Return to this office in 6 months time for repeat evaluation. A CKD panel will be obtained then. Thank you [facility] [place] for the opportunity to participate in the care of your patients! Please contact me at [phone] (Office) or [phone] (Answering service) with any questions. RACHAEL MARTIN MD [facility] This note was created with the assistance of a speech-recognition program. Although the intention is to generate a document that actually reflects the content of the visit, no guarantees can be provided that every mistake has been identified and corrected by editing. documented in this encounter [facility] 08-09-2023 Miscellaneous Notes LVM for patient to return phone call to the office to confirm appt for 08/[address] Martin in [place] @ 2:30, patient will need to have labs don 10-7 days before appt documented in this encounter [facility] 08-09-2023 Telephone encounter Note LVM for patient to return phone call to the office to confirm appt for 08/[address] Martin in [place] @ 2:30, patient will need to have labs don 10-7 days before appt [facility] 03-09-2023 History of Present illness Narrative DATE OF SERVICE:03/09/2023 PROBLEM: Ana Mason presents for follow up visit. DIAGNOSIS: IA grade 1 endometrial cancer SURGERY & DATE: 04/28/2017 Laparoscopic total hysterectomy, bilateral salpingo-oophorectomy, cystoscopy PATHOLOGY: FINAL DIAGNOSIS 1. Uterus and cervix, hysterectomy: Cervix - Chronic cervicitis and squamous metaplasia. - Negative for neoplasm. Endometrium - Well differentiated adenocarcinoma, endometrioid cell type with mucinous differentiation, FIGO grade 1. - Atypical endometrial hyperplasia. Myometrium - Superficial invasion by endometrioid adenocarcinoma (2 mm depth of invasion/ 19 mm myometrial thickness; 10.5% myoinvasion). - Adenomyosis. Serosa - No significant pathologic findings. 2. Right fallopian tube, excision - Serosal adhesions. - Negative for neoplasm. 3. Right ovary, excision - Stromal hyperthecosis. - Fibrous cortical adhesions with hemosiderin-laden macrophages. - Negative for neoplasm. 4. Left fallopian tube, excision - No significant pathologic findings. - Negative for neoplasm. 5. Left ovary, excision - Benign cyst, most consistent with a benign follicle cyst. - Stromal hyperthecosis. - Fibrous cortical adhesions. - Negative for neoplasm. SYNOPTIC REPORT OF [facility] PATHOLOGIC FINDINGS UTERUS AND CERVIX WITH BILATERAL OVARIES AND FALLOPIAN TUBES: Specimen: Uterine corpus Cervix Right ovary Left ovary Right fallopian tube Left fallopian tube Procedure: Simple hysterectomy Bilateral salpingo-oophorectomy Lymph Node Sampling: Not performed Specimen Integrity: Intact hysterectomy specimen Histologic Type: Endometrioid adenocarcinoma Histologic Grade: FIGO grade 1 Myometrial Invasion: Present Depth of invasion: 2 mm Myometrial thickness: 19 mm Tumor Involvement of Cervix: Not involved Other Organs Submitted: Right ovary not involved Left ovary not involved Right fallopian tube not involved Left fallopian tube not involved Lymph-Vascular Invasion: Not identified TNM Descriptors: Not applicable Primary Tumor (pT): pT1a (IA): Tumor limited to endometrium or invades less than 1/2 of the myometrium Regional Lymph Nodes (pN): pNX: Regional lymph nodes cannot be assessed No pelvic nodes submitted or found No para-aortic nodes submitted or found No other lymph nodes submitted or found Distant Metastasis (pM): Not applicable Advertising Agency Manager Tumor block: Specify: A4 SUBJECTIVE/INTERVAL HISTORY: Ana Mason reports that she feels well. No fever or chills. No acute shortness of breath, cough, or chest pain. No abdominal pain, nausea, vomiting, diarrhea, or constipation. No dysuria, gross hematuria, urinary frequency, urinary urgency, or incontinence. Getting mammogram @[facility] OBJECTIVE: VITALS: BP 150/63 Pulse 76 Temp 36.9 C (98.5 F) (Oral) Wt 125.2 kg (276 lb) BMI 52.15 kg/m GENERAL: Patient is a well developed, well nourished female. She is alert, oriented, pleasant and cooperative. HEENT: Normocephalic, atraumatic, NECK: Supple, no adenopathy LUNGS: Clear to auscultation bilaterally. HEART: Regular rate and rhythm, no murmurs. ABDOMEN: Abdomen soft, non-tender, non distended PELVIC: External genitalia, anus and urethral meatus are normal in appearance and without lesions. Vagina and cuff are normal in appearance on speculum examination. Bimanual and rectovaginal pelvic examination normal. Pap obtained. LOWER EXTREMITIES: normal ASSESSMENT: Ana Mason is a 57 year old women with history of stage IA grade 1 endometrial cancer, no martha-invasion, no LVSI 04/2017 PLAN: - patient doing well, clinically no evidence of disease - Follow-up Pap - Health maintenance; up to date - Return to clinic in 12 months, sooner as needed for issues concerns Harish Spencer APRN.MADYSON I spent a total of 20 minutes on the date of the service which included preparing to see the patient, [id number] patient care, completing clinical documentation, performing a medically appropriate examination, and ordering medications, tests, or procedures. All documentation from previous visit of 03/10/2022 was copied and pasted, documentation has been reviewed and edited as necessary for today's visit. documented in this encounter [facility] 05-03-2023 Note HNO ID: [id number] Author: Edda Putnam APRN.PUBLIC HEALTH SPECIALIST Service: ? Author Type: Nurse Practitioner Type: Progress Notes Filed: 09/15/2022 1:45 PM Note Text: Per encounter dated 04/17/21, patient does not need to follow up for 3-5 years from 03/09/21. [facility]TI follow up order updated to reflect this. Patient informed and visit canceled. Edda Putnam, MSN, RN, [employer]' [facility] 09-15-2022 History of Present illness Narrative Per encounter dated 04/17/21, patient does not need to follow up for 3-5 years from 03/09/21. [facility]TI follow up order updated to reflect this. Patient informed and visit canceled. KAL Christina, RN, [employer]' documented in this encounter [facility] 03-10-2022 History of Present illness Narrative DATE OF SERVICE:03/10/2022 PROBLEM: Ana Mason presents for follow up visit. DIAGNOSIS: IA grade 1 endometrial cancer SURGERY & DATE: 04/28/2017 Laparoscopic total hysterectomy, bilateral salpingo-oophorectomy, cystoscopy PATHOLOGY: FINAL DIAGNOSIS 1. Uterus and cervix, hysterectomy: Cervix - Chronic cervicitis and squamous metaplasia. - Negative for neoplasm. Endometrium - Well differentiated adenocarcinoma, endometrioid cell type with mucinous differentiation, FIGO grade 1. - Atypical endometrial hyperplasia. Myometrium - Superficial invasion by endometrioid adenocarcinoma (2 mm depth of invasion/ 19 mm myometrial thickness; 10.5% myoinvasion). - Adenomyosis. Serosa - No significant pathologic findings. 2. Right fallopian tube, excision - Serosal adhesions. - Negative for neoplasm. 3. Right ovary, excision - Stromal hyperthecosis. - Fibrous cortical adhesions with hemosiderin-laden macrophages. - Negative for neoplasm. 4. Left fallopian tube, excision - No significant pathologic findings. - Negative for neoplasm. 5. Left ovary, excision - Benign cyst, most consistent with a benign follicle cyst. - Stromal hyperthecosis. - Fibrous cortical adhesions. - Negative for neoplasm. SYNOPTIC REPORT OF [facility] PATHOLOGIC FINDINGS UTERUS AND CERVIX WITH BILATERAL OVARIES AND FALLOPIAN TUBES: Specimen: Uterine corpus Cervix Right ovary Left ovary Right fallopian tube Left fallopian tube Procedure: Simple hysterectomy Bilateral salpingo-oophorectomy Lymph Node Sampling: Not performed Specimen Integrity: Intact hysterectomy specimen Histologic Type: Endometrioid adenocarcinoma Histologic Grade: FIGO grade 1 Myometrial Invasion: Present Depth of invasion: 2 mm Myometrial thickness: 19 mm Tumor Involvement of Cervix: Not involved Other Organs Submitted: Right ovary not involved Left ovary not involved Right fallopian tube not involved Left fallopian tube not involved Lymph-Vascular Invasion: Not identified TNM Descriptors: Not applicable Primary Tumor (pT): pT1a (IA): Tumor limited to endometrium or invades less than 1/2 of the myometrium Regional Lymph Nodes (pN): pNX: Regional lymph nodes cannot be assessed No pelvic nodes submitted or found No para-aortic nodes submitted or found No other lymph nodes submitted or found Distant Metastasis (pM): Not applicable Advertising Agency Manager Tumor block: Specify: A4 SUBJECTIVE/INTERVAL HISTORY: Ana Mason reports that she feels well. No fever or chills. No acute shortness of breath, cough, or chest pain. No abdominal pain, nausea, vomiting, diarrhea, or constipation. No dysuria, gross hematuria, urinary frequency, urinary urgency, or incontinence. CKD III following w nephrology Dec 2020 had mammogram @ [facility] Intermittent swelling RLE-not new OBJECTIVE: VITALS: BP 141/59 Pulse 96 Temp 36.6 C (97.8 F) Resp 14 Wt 126.1 kg (277 lb 14.4 oz) BMI 52.51 kg/m GENERAL: Patient is a well developed, well nourished female. She is alert, oriented, pleasant and cooperative. HEENT: Normocephalic, atraumatic, NECK: Supple, no adenopathy LUNGS: Clear to auscultation bilaterally. HEART: Regular rate and rhythm, no murmurs. ABDOMEN: Abdomen soft, non-tender, non distended PELVIC: External genitalia, anus and urethral meatus are normal in appearance and without lesions. Vagina and cuff are normal in appearance on speculum examination. Bimanual and rectovaginal pelvic examination normal. Pap obtained. LOWER EXTREMITIES: normal ASSESSMENT: 56 yo women with stage IA grade 1 endometrial cancer, no martha-invasion, no LVSI 04/2017 PLAN: - patient doing well, clinically no evidence of disease - Follow-up Pap - Health maintenance; up to date - Return to clinic in 12 months, sooner as needed for issues concerns Harish Spencer APRN.CNP Medical Decision Making: Problems: Low: Stable chronic illness Risk: Minimal: Minimal risk from testing/treatment Medical Decision Making Level: 2 - Straightforward documented in this encounter [facility] 09-02-2021 History of Present illness Narrative DATE OF SERVICE:09/02/2021 PROBLEM: Ana Mason presents for follow up visit. DIAGNOSIS: IA grade 1 endometrial cancer SURGERY & DATE: 04/28/2017 Laparoscopic total hysterectomy, bilateral salpingo-oophorectomy, cystoscopy PATHOLOGY: FINAL DIAGNOSIS 1. Uterus and cervix, hysterectomy: Cervix - Chronic cervicitis and squamous metaplasia. - Negative for neoplasm. Endometrium - Well differentiated adenocarcinoma, endometrioid cell type with mucinous differentiation, FIGO grade 1. - Atypical endometrial hyperplasia. Myometrium - Superficial invasion by endometrioid adenocarcinoma (2 mm depth of invasion/ 19 mm myometrial thickness; 10.5% myoinvasion). - Adenomyosis. Serosa - No significant pathologic findings. 2. Right fallopian tube, excision - Serosal adhesions. - Negative for neoplasm. 3. Right ovary, excision - Stromal hyperthecosis. - Fibrous cortical adhesions with hemosiderin-laden macrophages. - Negative for neoplasm. 4. Left fallopian tube, excision - No significant pathologic findings. - Negative for neoplasm. 5. Left ovary, excision - Benign cyst, most consistent with a benign follicle cyst. - Stromal hyperthecosis. - Fibrous cortical adhesions. - Negative for neoplasm. SYNOPTIC REPORT OF [facility] PATHOLOGIC FINDINGS UTERUS AND CERVIX WITH BILATERAL OVARIES AND FALLOPIAN TUBES: Specimen: Uterine corpus Cervix Right ovary Left ovary Right fallopian tube Left fallopian tube Procedure: Simple hysterectomy Bilateral salpingo-oophorectomy Lymph Node Sampling: Not performed Specimen Integrity: Intact hysterectomy specimen Histologic Type: Endometrioid adenocarcinoma Histologic Grade: FIGO grade 1 Myometrial Invasion: Present Depth of invasion: 2 mm Myometrial thickness: 19 mm Tumor Involvement of Cervix: Not involved Other Organs Submitted: Right ovary not involved Left ovary not involved Right fallopian tube not involved Left fallopian tube not involved Lymph-Vascular Invasion: Not identified TNM Descriptors: Not applicable Primary Tumor (pT): pT1a (IA): Tumor limited to endometrium or invades less than 1/2 of the myometrium Regional Lymph Nodes (pN): pNX: Regional lymph nodes cannot be assessed No pelvic nodes submitted or found No para-aortic nodes submitted or found No other lymph nodes submitted or found Distant Metastasis (pM): Not applicable Advertising Agency Manager Tumor block: Specify: A4 SUBJECTIVE/INTERVAL HISTORY: Ana Mason reports that she feels well. No fever or chills. No shortness of breath, cough, or chest pain. No abdominal pain, nausea, vomiting, diarrhea, or constipation. No dysuria, gross hematuria, urinary frequency, urinary urgency, or incontinence. Her ECOG performance status is zero (fully active, able to carry on all pre-disease performance without restriction). Occasional urinary incontinence- CKD III following w nephrology Dec 2020 had mammogram @ [facility] Intermittent swelling RLE-not new OBJECTIVE: VITALS: BP 132/79 Pulse 64 Temp 36.4 C (97.5 F) Resp 14 Wt 126.1 kg (278 lb) BMI 52.53 kg/m GENERAL: Patient is a well developed, well nourished female. She is alert, oriented, pleasant and cooperative. SKIN: Color, texture, turgor normal. No rashes or lesions. HEENT: Normocephalic, atraumatic, NECK: Supple, no adenopathy LUNGS: Clear to auscultation bilaterally. HEART: Regular rate and rhythm, no murmurs. ABDOMEN: Abdomen soft, non-tender, non distended PELVIC: External genitalia, anus and urethral meatus are normal in appearance and without lesions. Vagina and cuff are normal in appearance on speculum examination. Bimanual pelvic examination normal. Uterus and cervix are surgically absent. Pap obtained. LOWER EXTREMITIES: normal ASSESSMENT: 55 yo women with stage IA grade 1 endometrial cancer, no martha-invasion, no LVSI 04/2017 PLAN: - patient doing well, clinically no evidence of disease - Follow-up Pap - Health maintenance; up to date - Return to clinic in 6 months, sooner as needed for issues concerns Harish Spencer APRN.CNP Medical Decision Making: Problems: Low: Stable chronic illness Risk: Low: Low risk from testing/treatment Medical Decision Making Level: 3 - Low documented in this encounter [facility] 04-08-2017 History of Past i llness Narrative Problem Noted Date Resolved Date Uterine cancer 04/08/2017 09/05/2020 Overview: Added automatically from request for surgery [id number] documented as of this encounter (statuses as of 09/02/2021) [facility]-2017 History of Past illness Narrative* Problem Noted Date Resolved Date Uterine cancer 04/08/2017 09/05/2020 Overview: Added automatically from request for surgery [id number] documented as of this encounter (statuses as of 03/10/2022) [facility] History of Past illness Narrative* Problem Noted Date Resolved Date Uterine cancer 04/08/2017 09/05/2020 Overview: Added automatically from request for surgery [id number] documented as of this encounter (statuses as of 03/17/2022) [facility] History of Past illness Narrative* Problem Noted Date Resolved Date Uterine cancer 04/08/2017 09/05/2020 Overview: Added automatically from request for surgery [id number] documented as of this encounter (statuses as of 09/15/2022) [facility] History of Past illness Narrative* Problem Noted Date Diagnosed Date Resolved Date Uterine cancer 04/08/2017 09/05/2020 Overview: Added automatically from request for surgery [id number] documented as of this encounter (statuses as of 12/24/2022) [facility] History of Past illness Narrative* Problem Noted Date Diagnosed Date Resolved Date Uterine cancer 04/08/2017 09/05/2020 Overview: Added automatically from request for surgery [id number] documented as of this encounter (statuses as of 03/09/2023) [facility] note* Diagnosis History of uterine cancer- Primary Personal history of malignant neoplasm of other parts of uterus Encounter for follow-up surveillance of endometrial cancer Unspecified follow-up examination documented in this encounter [facility]* Diagnosis Encounter for follow-up surveillance of endometrial cancer- Primary Unspecified follow-up examination History of uterine cancer Personal history of malignant neoplasm of other parts of uterus [facility] this [facility] Diagnosis Disorder of arteries and arterioles (HCC)- Primary Unspecified disorders of arteries and arterioles [facility] this encounter [facility] Diagnosis Aneurysm of ascending aorta without rupture (HCC)- Primary [facility] Diagnosis Degeneration of lumbar intervertebral disc Degeneration of lumbar or lumbosacral intervertebral disc Lumbar radiculopathy Thoracic or lumbosacral neuritis or radiculitis, unspecified Chronic midline low back pain, unspecified whether sciatica present documented in this encounter [facility]* Diagnosis Encounter for follow-up surveillance of endometrial cancer- Primary Unspecified follow-up examination History of uterine cancer Personal history of malignant neoplasm of other parts of uterus [facility] this encounter [facility] Diagnosis Degeneration of lumbar intervertebral disc Degeneration of lumbar or lumbosacral intervertebral disc Lumbar radiculopathy Thoracic or lumbosacral neuritis or radiculitis, unspecified Hx of cancer of endometrium Personal history of malignant neoplasm of other parts of uterus Urinary incontinence, unspecified type documented in this encounter [facility] note* Diagnosis Encounter for follow-up surveillance of endometrial cancer- Primary Unspecified follow-up examination History of uterine cancer Personal history of malignant neoplasm of other parts of uterus Encounter for screening mammogram for breast cancer documented in this encounter [facility]* Diagnosis Pre-op testing Preoperative examination, unspecified Screen for colon cancer Special screening for malignant neoplasms, colon [facility] Diagnosis CKD (chronic kidney disease) stage 2, GFR 60-89 ml/min- Primary Chronic kidney disease, Stage II (mild) [facility] Primary hypertension Unspecified essential hypertension [facility] Diagnosis CKD (chronic kidney disease) stage 2, GFR 60-89 ml/min- Primary Chronic kidney disease, Stage II (mild) [facility] Diagnosis Pre-op testing Preoperative examination, unspecified Screen for colon cancer Special screening for malignant neoplasms, colon [facility] Diagnosis Primary hypertension Unspecified essential hypertension [facility] Diagnosis Rectal bleeding Hemorrhage of rectum and anus Family history of colon cancer Family history of malignant neoplasm of gastrointestinal tract [facility] Diagnosis CKD (chronic kidney disease) stage 2, GFR 60-89 ml/min- Primary Chronic kidney disease, Stage II (mild) Stage 3b chronic kidney disease (CMS-HCC) [facility] Diagnosis Tibialis posterior tendonitis, left- Primary Arthritis of left subtalar joint Pain and swelling of left ankle Difficulty walking Difficulty in walking [facility] Diagnosis Tibialis posterior tendonitis, left- Primary Arthritis of left subtalar joint Pain and swelling of left ankle Difficulty walking Difficulty in walking documented in this encounter [facility] HealthcareInstructionsNot on filedocumented in this encounterPro[facility] SystemInstructionsNot on filedocumented in this encounterProHarrison [facility] SystemInstructionsNot on filedocumented in this encounterProHarrison [facility] SystemInstructionsNot on filedocumented in this encounterProH[facility] InstructionsNot on filedocumented in this encounterProHarrison [facility] SystemReason for referral (narrative)* Diagnostic Procedure Only (Routine) - Closed Specialty Diagnoses / Procedures Referred By Gabe t Referred To Contact XR IMAGING Diagnoses Degeneration of lumbar intervertebral disc Lumbar radiculopathy Chronic midline low back pain, unspecified whether sciatica present Procedures XR LUMBAR GENERAL 3V AP/LAT/L5-S1 X-RAY L-S SPINE AP/LATERAL Swati Flores PROJECT BUILDER.PUBLIC HEALTH SPECIALIST [id number] [place] [address] Xr Imaging Referral ID Status Reason Start Date Expiration Date V isits Requested Visits Authorized Closed Auto-Generate d Referral 02/04/2021 03/06/2022 1 1 [facility] for referral (narrative)* Diagnostic Procedure Only (Routine) - New Request Specialty Diagnoses / Procedures Referred By Contac t Referred To Contact BR IMAGING Diagnoses Encounter for screening mammogram for breast cancer Procedures LYNETTE SCREENING W SHAWN SCREENING DIGITAL BREAST TOMOSYNTHESIS BI SCREENING MAMMOGRAPHY BI 2-VIEW BREAST INC CAD Harish Spencer APRN.PUBLIC HEALTH SPECIALIST [address] [place] [address] [facility] [address] [place] [address] Referral ID Status Reason Start Date Expiration Date Visits Requested Visits Authorized [id number] New Request Auto-Generat ed Referral 04/13/2025 1 1 [facility] for visit Narrative* Diagnostic Procedure Only (Routine) - Closed Specialty Diagnoses / Procedures Referred By Contac t Referred To Contact XR IMAGING Diagnoses Degeneration of lumbar intervertebral disc Lumbar radiculopathy Chronic midline low back pain, unspecified whether sciatica present Procedures XR LUMBAR GENERAL 3V AP/LAT/L5-S1 X-RAY L-S SPINE AP/LATERAL Swati Flores PROJECT BUILDER.PUBLIC HEALTH SPECIALIST [address] [place] [address] Xr Imaging Referral ID Status Reason Start Date Expiration Date V isits Requested Visits Authorized Closed Auto-Generate d Referral 02/04/2021 03/06/2022 1 1 [facility] for visit Narrative* Auth/Cert (Routine) Specialty Diagnoses / Procedures Referred By Contac t Referred To Contact Diagnoses Screen for colon cancer Screen for colon cancer [Z12.11] Procedures NE COLON CA SCRN NOT HI RSK IND NE COLONOSCOPY FLX DX W/COLLJ SPEC WHEN PFRMD NE COLONOSCOPY W/BIOPSY SINGLE/MULTIPLE NE COLSC FLX W/RMVL OF TUMOR POLYP LESION SNARE TQ COLORECTAL CANCER SCREENING, NOT HIGH RISK Vitaly Meza MD [address] [place] [id number] Phone: tel: [facility] [address] [place] [address] Referral ID Status Reason Start Date Expiration Date Visits Re quested Visits Authorized [id number] 1 1 [facility] raksul [facility] Reason for Referral Specialty Diagnoses / Procedures Referred By Contac t Referred To Contact MR IMAGING Diagnoses Disorder of arteries and arterioles (HCC) Procedures MRI CARDIAC VELOCITY FLOW MAP CARDIAC MRI FOR VELOCITY FLOW MAPPING Edda Putnam APRN.PUBLIC HEALTH SPECIALIST [address], [address] [place] [id number] Mr Imaging Referral ID Status Reason Start Date Expiration Date Visits Requested Visits Authorized [id number] Pending Review Auto-Generat ed Referral 03/17/2022 04/16/2023 1 1 Specialty Diagnoses / Procedures Referred By Mikeac t Referred To Contact MR IMAGING Diagnoses Disorder of arteries and arterioles (HCC) Procedures MRI CARDIAC MORPH FUNC WO/W IVCON CARDIAC MRI W/WO CONTRAST & FURTHER SEQ Edda Putnam APRN.PUBLIC HEALTH SPECIALIST [address], [id number] [place] [address] Mr Imaging Referral ID Status Reason Start Date Expiration Date Visits Requested Visits Authorized [id number] Pending Review Auto-Generat ed Referral 03/17/2022 04/16/2023 1 1 Specialty Diagnoses / Procedures Referred By Gabe t Referred To Contact MR IMAGING Diagnoses Degeneration of lumbar intervertebral disc Lumbar radiculopathy Hx of cancer of endometrium Urinary incontinence, unspecified type Procedures MRI LUMBAR SPINE WO/W IVCON MRI, LUMBAR SPINE Swati Smith APRN.PUBLIC HEALTH SPECIALIST [address] [place] [address] [place] [address] Referral ID Status Reason Start Date Expiration Date V isits Requested Visits Authorized [id number] Closed Auto-Generate d Referral 02/04/2021 03/21/2021 1 1 Specialty Diagnoses / Procedures Referred By Gabe espinoza Referred To Contact Cardiology Diagnoses Pre-op testing Procedures EKG 12 Lead Kristine Valentine, PROJECT BUILDER - PUBLIC HEALTH SPECIALIST [address] [address] Referral ID Status Reason Start Date Expiration Date V isits Requested Visits Authorized [id number] Pending Review 04/05/2024 04/05/2025 1 1 Summary Purpose Family History No Family History Records FoundNo Family History Records FoundNo Family History Records FoundNo Family History Records FoundNo Family History Records FoundNo Family History Records Found Advance Directives No Advanced Directives Records FoundNo Advanced Directives Records FoundNo Advanced Directives Records FoundNo Advanced Directives Records FoundNo Advanced Directives Records FoundNo Advanced Directives Records Found Additional Source Comments Source Comments (unrecognize d section and content) In the event this informatio n is protected by the Federal Confidentiality of Alcohol and Drug Abuse Patient Records regulations: The Federal rules restrict any use of the information to criminally investigate or prosecute any alcohol or drug abuse patient.[facility] the event this information is protected by the Federal Confidentiality of Alcohol and Drug Abuse Patient Records regulations: The Federal rules restrict any use of the information to criminally investigate or prosecute any alcohol or drug abuse patient.[facility] HospitalIn the event this information is protected by the Federal Confidentiality of Alcohol and Drug Abuse Patient Records regulations: The Federal rules restrict any use of the information to criminally investigate or prosecute any alcohol or drug abuse patient.[facility] the event this information is protected by the Federal Confidentiality of Alcohol and Drug Abuse Patient Records regulations: The Federal rules restrict any use of the information to criminally investigate or prosecute any alcohol or drug abuse patient.[facility] HospitalIn the event this information is protected by the Federal Confidentiality of Alcohol and Drug Abuse Patient Records regulations: The Federal rules restrict any use of the information to criminally investigate or prosecute any alcohol or drug abuse patient.[facility] HospitalIn the event this information is protected by the Federal Confidentiality of Alcohol and Drug Abuse Patient Records regulations: The Federal rules restrict any use of the information to criminally investigate or prosecute any alcohol or drug abuse patient.[facility] HospitalIn the event this information is protected by the Federal Confidentiality of Alcohol and Drug Abuse Patient Records regulations: The Federal rules restrict any use of the information to criminally investigate or prosecute any alcohol or drug abuse patient.[facility] HospitalIn the event this information is protected by the Federal Confidentiality of Alcohol and Drug Abuse Patient Records regulations: The Federal rules restrict any use of the information to criminally investigate or prosecute any alcohol or drug abuse patient.[facility] Reason for Visit (unrecogniz ed section and content) Reason Comments Established Patient Reason Comments Follow Up Specialty Diagnoses / Procedures Referred By Gabe espinoza Referred To Contact MR IMAGING Diagnoses Degeneration of lumbar intervertebral disc Lumbar radiculopathy Hx of cancer of endometrium Urinary incontinence, unspecified type Procedures MRI LUMBAR SPINE WO/W IVCON MRI, LUMBAR SPINE COMBO Swati Flores, PROJECT BUILDER.PUBLIC HEALTH SPECIALIST [address] [place] [address] [place] [address] Referral ID Status Reason Start Date Expiration Date V isits Requested Visits Authorized [id number] Closed Auto-Generate d Referral 02/04/2021 03/21/2021 1 1 Reason Comments Follow Up Reason Comments Med Refill Reason Comments Med Change Request Reason Comments Ankle Pain Pt is here today for Lt ankle pain, started about 1mo ago, NKI. She was working, got up from her desk and was in a lot of pain suddenly, hard to walk. Then improved, then last week flared up again, now its a dull acheBS: 120 A1C: 5.7LV Beryl Charmaine 08-02-2024SS: 7XW Reason Comments Follow-up Established patient presents today for 3-4 week fuv of left ankle pain. PCP: Charmaine WHITE 08/02/24, A1C: 5.7, BS: 101, SS: 7XW Reason Onset Date Comments UA prior to appt 11/05/2024 Care Teams (unrecognized sec tion and content) Convertible Top Installer Relationship Specialty Start Date End Date Vamshi Zuleta PA-C [address] [place] [address] PCP - General Internal Medicine 12/21/19 [place] Pacheco [address] [place] [address] Referring Family Practice 01/16/21 Convertible Top Installer Relationship Specialty Start Date End Date Vamshi Zuleta PA-C [address] [place] [address] PCP - General Internal Medicine 12/21/19 [place] Pacheco [address] [place] [address] Referring Family Medicine 01/16/21 Convertible Top Installer Relationship Specialty Start Date End Date Vamshi Zuleta PA-C [address] [place] [address] PCP - General Internal Medicine 12/21/19 [place] Pacheco [address] [place] [address] Referring Family Medicine 01/16/21 Convertible Top Installer Relationship Specialty Start Date End Date Vamshi Zuleta PA-C [address] [place] [address] PCP - General Internal Medicine 12/21/19 [place] Pacheco [address] [place] [address] Referring Family Medicine 01/16/21 Convertible Top Installer Relationship Specialty Start Date End Date Vamshi Zuleta PA-C [address] [place] [address] PCP - General Internal Medicine 12/21/19 [place] Pacheco [address] [place] [address] Referring Family Medicine 01/16/21 Convertible Top Installer Relationship Specialty Start Date End Date Vamshi Zuleta PA-C [address] [place] [address] PCP - General Internal Medicine 12/21/19 [place] Pacheco MD [address] [place] [address] Referring Family Medicine 01/16/21 Convertible Top Installer Relationship Specialty Start Date End Date Vamshi Zuleta PA-C [address] [place] [address] PCP - General Internal Medicine 12/21/19 [place] Pacheco MD [address] [place] [address] Referring Family Medicine 01/16/21 Convertible Top Installer Relationship Specialty Start Date End Date Vamshi Zuleta PA-C [address] [place] [address] PCP - General Internal Medicine 12/21/19 [place] Pacheco MD [address] [place] [address] Referring Family Medicine 01/16/21 Convertible Top Installer Relationship Specialty Start Date End Date Odilia Montano APRN - NP [address] [facility] [place] [address] PCP - General 06/20/24 Convertible Top Installer Relationship Specialty Start Date End Date Services, [facility] [address] [place] PCP - General Family Medicine 04/05/18 Convertible Top Installer Relationship Specialty Start Date End Date Services, [facility] [address] [place] PCP - General Family Medicine 04/05/18 Convertible Top Installer Relationship Specialty Start Date End Date Services, [facility] [address] [place] PCP - General Family Medicine 04/05/18 Convertible Top Installer Relationship Specialty Start Date End Date Services, [facility] [address] [place] PCP - General Family Medicine 04/05/18 Convertible Top Installer Relationship Specialty Start Date End Date Odilia Montano APRN - NP [address] [facility] [place] [address] PCP - General 06/20/24 Convertible Top Installer Relationship Specialty Start Date End Date Services, [facility] [address] [place] PCP - General Family Medicine 04/05/18 Convertible Top Installer Relationship Specialty Start Date End Date Services, [facility] [address] [place] PCP - General Family Medicine 04/05/18 Convertible Top Installer Relationship Specialty Start Date End Date Odilia Montano APRN - NP [address] [facility] [place] [address] PCP - General 06/20/24 Convertible Top Installer Relationship Specialty Start Date End Date [facility] [address] [place] PCP - General Family Medicine 04/05/18 Convertible Top Installer Relationship Specialty Start Date End Date Odilia Montano MD [address] [place] [address] Primary Care Provider Family Medicine 10/02/24 Convertible Top Installer Relationship Specialty Start Date End Date Odilia Montano MD [address] [place] [address] Primary Care Provider Family Medicine 10/02/24 Convertible Top Installer Relationship Specialty Start Date End Date Odilia Montano MD [address] [place] [address] Primary Care Provider Family Medicine 10/02/24 Convertible Top Installer Relationship Specialty Start Date End Date Oidlia Montano MD [address] [place] [address] Primary Care Provider Family Medicine 10/02/24 Convertible Top Installer Relationship Specialty Start Date End Date [facility] [address] [place] PCP - General Family Medicine 04/05/18 INFORMATION SOURCE (unrecogn ized section and content) DATE CREATED AUTHOR 03/22/2022 Torey Zendejas [facility] DATE CREATED AUTHOR AUTHOR'S ORGANIZ ATION 09/17/2022 [facility] DATE CREATED AUTHOR AUTHOR'S ORGANIZ ATION 03/21/2024 [facility] DATE CREATED AUTHOR AUTHOR'S ORGANIZ ATION 09/02/2024 Elise Gray pitlisa DATE CREATED AUTHOR AUTHOR'S ORGANIZ ATION 09/24/2024 [facility] DATE CREATED AUTHOR AUTHOR'S ORGANIZ ATION 11/06/2024 [facility] dical Specialists EPIC Scheduled Active and Recently Administ ered Medications (unrecognized section and content) Medication Order 08/29/2024 08/30/2024 08/31/2024 famotidine (PEPCID) 20 MG/2ML 20 mg in sodium chloride (PF) 0.9 % 10 mL injection 20 mg, IntraVENous, ONCE, 1 dose, On Tue08/31/24 at 0715, Administer over 2 minutes., Pre-op (day of surgery) 0715 (Due) Continuous Medication Order 08/29/2024 08/30/2024 08/31/2024 lactated ringers infusion IntraVENous, at 100 mL/hr, CONTINUOUS, Starting on Tue08/31/24 at 0715, Pre-op (day of surgery) 0725 (New Bag - Prov ider: Wen Ibrahim RN)0836 (NoRateChange - Provider: FABBY Lomeli CRNA)0900 (Paused - Provider: FABBY Lomeli CRNA - Comment: Switch to gravity)0901 (Restarted - Provider: FABBY Lomeli CRNA) PRN Medication Order 08/29/2024 08/30/2024 08/31/2024 simethicone (MYLICON) 40 MG/0.6ML suspension drops (CANCELED) PRN, Starting on Tue08/31/24 at 0853, Until Tue08/31/24 at 0905, Intra-op 0853 (Given - Provid er: Vitaly Meza MD - Comment: 1mL Simethicone mixed in 1000 mL of Sterile water, administered throughout colon as irrigation) FOR RECORDS PERTAINING TO PATIENTS WHO ARE OR HAVE BEEN ENROLLED IN A CHEMICAL DEPENDENCY/SUBSTANCEABUSE PROGRAM, SOME INFORMATION MAY BE OMITTED. This clinical summary was aggregated from multiple sources. Caution should be exercised in using it in the provision of clinical care. This summary normalizes information from multiple sources, and as a consequence, information in this document may materially change the coding, format and clinical context of patient data. In addition, data may be omitted in some cases. CLINICAL DECISIONS SHOULD BE BASED ON THE PRIMARY CLINICAL RECORDS. [facility] [employer] [facility]. provides no warranty or guarantee of the accuracy or completeness of information in this document.
== END 2024-11-14 07:03 | disposition home or self-care (01) ==
LOC: MAMMO 07:04
DX: Z12.31 Encounter for screening mammogram for malignant neoplasm of breast (principal)
CPT/HCPCS: 77063; 77067